=== PATIENT | male | born 1955 | race Caucasian/White ===

== ENCOUNTER 2016-10-05 22:07 | Emergency (ER) | payer MEDICAID ==
[~2016-10-05] VITALS: Ht 175.3 cm; Wt 88.0 kg
[2016-10-05] MEDS ORDERED: K-DUR 2020 MEQ PO (22:16)
[2016-10-05] MEDS ORDERED: FUROSEMIDE 40MG40 M1 PO (22:16)
[2016-10-05] MEDS ORDERED: ACETAMINOPHEN-H1 TA2 PO (22:17)
[2016-10-05] MEDS ORDERED: LOPRESSOR 25MG.25 MG PO (22:17)
[2016-10-05] MEDS ORDERED: DONEPEZIL HCL10 MG PO (22:18)
[2016-10-05] MEDS ORDERED: SODIUM BICARBO650 MG PO (22:18)
[2016-10-05] MEDS ORDERED: SPIRIVA RE2.5 MCG/Ac IH (22:19)
[2016-10-05] MEDS ORDERED: BUSPAR 10MG TAB10 MG PO (22:20)
[2016-10-05] MEDS ORDERED: ASPIRIN ADULT L81 M3 PO (22:20)
[2016-10-05] MEDS ORDERED: SUBOXONE 8 MG-21 FIL SL (22:21)
[2016-10-05] MEDS ORDERED: SIMVASTATIN40 MG PO (22:22)
--- NOTE | 2016-10-05 22:27 | Emergency Room Report ---
History of Present Illness Time Seen by [id number] Presenting Problem in Triage Pt arrived:Walked Presenting Problem:PT RPTS HE BEGAN HAVING CHEST PAIN LAST NIGHT WHILE HE WAS AT HOME. PT RPTS HE WAS GETTING READY TO GO TO BED WHEN THE PAIN STARTED. PT RPTS HAVING BIPASS SURGERY AT LAST FRIDAY BY DR KEYS. PT RPTS HE'S UNSURE IF THE PAIN IS FROM HIS INCISION. PT RPTS INTERMITTENT MID STERNAL CHEST PAIN, HE STS "IT JUST FEELS LIKE SOMETHING'S SITTING THERE. 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 N Clinical Suspician of Infection? N Mental Status: 1 - Regular (Normal Baseline) Sepsis Risk:Low Sepsis Risk Have you (or family members/close friends) recently traveled outside the [place]? N If Yes, where/when: Have you had exposure to infectious disease within the past month? N TB? Other? Specify: Source patient, RN notes reviewed, family, old records Exam Limitations no limitations Comment pt with recent 8 days ago cabg surg and was released from on friday and last pm and tonight has midsternal along incision line pain - he has no cough or fever and no positional pain and no diaphoesis Cardiac Chest Pain Chest pain indicative of cardiac No Timing/Duration this evening Severity moderate ALLERGIES Coded Allergies: No Known Allergies (10/05/16) Home Medications Reported Medications Furosemide 40 MG PO BID #30 Potassium Chloride (K-Dur) 20 MEQ PO DAILY #60 HYDROCODONE/ACETAMINOPHEN (Hydrocodon-Acetaminophen 5-325) 1 TAB PO Q4HP PRN PAIN #60 Metoprolol Tartrate (Lopressor) 12.5 MG PO BID #30 Sodium Bicarbonate 650 MG PO BID #30 DONEPEZIL HCL (Donepezil HCl) 10 MG PO DAILY #30 Tiotropium Marion (Spiriva Respimat) 2.5 MCG IH PRN PRN COPD #4 Buspirone Hcl (Buspar 10MG) 10 MG PO TID #90 Aspirin (Aspirin EC) 81 MG PO DAILY #30 BUPRENORPHINE HCL/NALOXONE HCL (Suboxone 8 MG-2 MG Sl Film) 2 SL DAILY Simvastatin (Simvastatin 40MG Tab) 40 MG PO DAILY #30 History Medical History General CAD? No Angina: Yes [place]: Yes Hypertension? Yes Hyperlipidemia? Yes CHF? No DVT? No PE? No COPD? Yes Asthma? No Anemia? No GERD? No Gastric ulcers? No GI Bleed? No Hernia? No Thyroid Problems? No Hypothyroidism? No CVA? No Seizures? No Diabetes? No Renal Insuffiency? Yes End Stage Renal Disease? No UTI? No Stones? No BPH? No GB Disease: No Nephritic Syndrome? No Asplenia? No Hepatitis? No Sickle Cell Disease? No Arthritis? No Migraines? No Cataracts? No Glaucoma? No MRSA? No HIV? No TB? No Anxiety? No Depression? No Cancer? No More? No Immunization Hx DT/Tetanus Unknown Surgical Hx Previous Surgery?Y RT NEPHRONECTOMY Coronary Artery Bypass Family History Family Hx Diabetes Yes CAD Yes Hypertension Yes Hyperlipidemia Yes Cancer No TB No Social History Smoking Hx Smoker: Current Every Day Smoker Tobacco: Yes Type Cigarettes Packs/day < 1 Pack Alcohol Alcohol: No Drugs none Review of Systems All Other Systems Reviewed and Negative Constitutional denies fever Eyes denies drainage ENT denies: ear discharge, epistaxis, throat pain. Respiratory denies cough, denies shortness of breath, denies wheezing Cardiovascular see HPI, chest pain, denies palpitations, denies syncope Gastrointestinal denies abdominal pain, denies diarrhea, denies vomiting Genitourinary denies: dysuria, frequency, hesitancy, hematuria. Musculoskeletal denies back pain, denies joint pain, denies joint swelling, denies neck pain Skin denies rash Psychiatric/Neurological denies headache, denies seizure Physical Exam Vital Signs Vital Signs Date Time Temp Pulse Resp B/P Pulse O2 O2 Flow FiO2 Ox Delivery Rate 10/05 2347 97.7 67 18 122/71 96 10/05 2315 97.7 65 18 106/56 94 10/05 2259 97.7 68 18 108/74 95 10/05 2209 97.7 63 18 143/73 95 - WBC >12,000 or <4,000 or 10% bands? 2 or more SIRS Criteria Met? B/P:122/71 MAP:96 Creatinine >2.0? UA output<0.5ml/kg/hr for 2 hrs? Platelet count >100,000? Lactate >2.0mmol/1? INR >1.2 or PTT > than 60 sec? Evidence of Organ Dysfunction? Provider documented clinical suspician of infection? N Sepsis Criteria Count: 0 Sepsis Risk: Low Sepsis Risk General Appearance no apparent distress Eye Exam - bilateral eye PERRL, bilateral eye EOMI Ear, Nose, Throat normal ENT inspection Neck supple Respiratory Status No: respiratory distress. Lung Sounds bilateral: lungs clear. left: decreased breath sounds. 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 No Results/Orders Laboratory Tests 10/06/16 0010: Troponin I 0.18 H 10/05/167: Sodium 135 L, Potassium 4.8, Chloride 105, Carbon Dioxide 27, BUN 29 H, Creatinine 1.8 H, Estimated Creat Clear 55, Estimated GFR (MDRD) 39, Glucose 92 , Calcium 7.8 L, Total Bilirubin 0.3, AST 31, ALT 32, Alkaline Phosphatase 107, Creatine Kinase 42, CK-MB (CK-2) Rel Index 2.6, CK and CKMB Interp 1.1, Troponin I 0.17 H, Total Protein 6.6, Albumin 2.1 L, Globulin 4.5 H, Albumin/Globulin Ratio 0.5 L, WBC 5.9, RBC 3.33 L, Hgb 9.2 L, Hct 29.3 L, MCV 88.1, RDW 15.4, Plt Count 189, MPV 6.5 L, Gran % 62.8, Gran # 3.7, Lymphocytes % 26.2, Monocytes % 5.8, Eosinophils % 4.9, Basophils % 0.2, Lymphocytes # 1.6, Monocytes # 0.3, Eosinophils # 0.3, Basophils # 0.0, PUBS MCHC 31.2 L, MCH 27.5 Current Medication Orders Sig/Jacqueline Start time Last Medication Dose Route Stop Time Status Admin Aspirin 243 MG ONCE ONE 10/05 2300 DC 10/05 PO 10/05 2301 2258 Aspirin 0 .STK-MED ONE 10/06 2255 DC .ROUTE Sodium Chloride 10 ML PRN PRN 10/05 2229 AC IV 10/06 2222 Orders Procedure Date/time Status TROPONIN I 10/06 0001 Complete ELECTROCARDIOGRAM REQUEST 10/06 2223 Active CHEST(2 VIEWS-NOT PORTABLE) 10/06 2223 Active IV SALINE LOCK 10/06 2223 Active CBC WITH AUTO DIFF 10/06 2223 Complete CARDIAC ENZYMES 10/06 2223 Complete CHEM 12 PROFILE 10/06 2223 Complete 12 LEAD EKG-BESSON (INITIAL) 10/05 UNK Active 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 ST/Twave chgs XRAY/CT/US XRAY/CT/US XRAY chest XR interpretation by reviewed by me Xray Results abnormal (see report) Departure Departure Time of Disposition 005 Disposition DC Home or Self Care(routine) Clinical Impression Primary Impression: Chest pain Qualifiers: Chest pain type: unspecified Qualified Code: R07.9 - Chest pain, unspecified Secondary Impressions: Anemia Qualifiers: Anemia type: unspecified type Qualified Code: D64.9 - Anemia, unspecified Elevated troponin Renal insufficiency Condition STABLE Patient Instructions DI for Atypical Chest Pain Additional Instructions taker meds and call your surg dr for follow up and see pcp Discharge Counseling Counseled pt/family regarding diagnosis, test results, follow up needs ED Critical Care Critical Care No at 0058
--- OUTSIDE RECORDS SUMMARY | 2016-10-05 22:31 | External Medical Summary Rpt ---
Author Author [facility] Organization [facility] Address Unknown Phone Unavailable Care Team Providers Care Garland Machine Operator Name Role Phone NO, (REF) PCP Unavailable Encounter [facility] MELIA [id number] Date(s): 04/26/16 - 04/26/16 [facility] [place] [address]- Discharge Disposition: [facility] OP Attending Physician: JESUS ALBERTO PRESTON MD-NEP Admitting Physician: JESUS ALBERTO PRESTON MD-NEP Referring Physician: JESUS ALBERTO PRESTON MD-NEP Reason for Visit END STAGE RENAL DISEASE Vital Signs No data available for this section Problem List Condition Effective Status Health Informant Dates Status COPD Active patient (chronic obstructive pulmonary disease)(Con firmed) Hep C w/o Active patient coma, chronic(Conf irmed) Endocarditis Active patient (Confirmed) Hyperlipidem Active patient ia(Confirmed ) Hypertension Active patient (Confirmed) IV drug Active patient user(Confirm ed) Kidney Active patient failure(Conf irmed) Allergies, Adverse Reactions, Alerts No Known Allergies Medications No data available for this section Results No data available for this section Immunizations No data available for this section Procedures No data available for this section Social History No data available for this section Assessment and Plan Extracted from: Title: CKR1 Removal Author: JULIA MARINO, Date: 04/26/16 Dialysis catheter PA-UNK Pre-OP/Procedure Diagnosis: _ Renal Failure. Indication: Request for catheter removal. Catheter no longer needed Procedure Performed: Dialysis catheter removal Procedural MD: Christopher Wind Turbine Electrical Engineer: Yves Sedation: None Findings: Successful removal of dialysis catheter Complications: None EBL: Minimal Specimen(s) Removed: _None Full report to follow. Hospital Discharge Instructions No data available for this section
--- OUTSIDE RECORDS SUMMARY | 2016-10-05 22:31 | External Medical Summary Rpt ---
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 Hospital Discharge Instructions No data available for this section
--- OUTSIDE RECORDS SUMMARY | 2016-10-05 22:36 | External Medical Summary Rpt ---
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 Operator Name Role Phone [facility], [facility] Unavailable Unavailable [facility], [facility] Unavailable Unavailable [facility], Unavailable Unavailable [facility] Unavailable Unavailable [facility] AL-ABED, AL-ABED Unavailable Unavailable AL-ABED MOH, AL-ABED Unavailable Unavailable MOH RADHA, RADHA Unavailable Unavailable ANEJA, ANEJA Unavailable Unavailable AYACH JUNIOR, AYACH JUNIOR Unavailable Unavailable ARRINGTON CHR, ARRINGTON Unavailable Unavailable CHR WILFRID JULIO, Unavailable Unavailable WILFRID JULIO [facility] Unavailable Unavailable [facility], [facility] SUSANA JAM, SUSANA Unavailable Unavailable JAM BORAL MIGUEL A, BORAL MIGUEL A Unavailable Unavailable [facility] BRANSTETTER, Unavailable Unavailable BRANSTETTER CROWE JIGNESH, CROWE Unavailable Unavailable JIGNESH [place] [facility] Unavailable Unavailable [facility] JIGNESH, Unavailable Unavailable U[facility] JR JIGNESH CAVATASSI LIZETH, Unavailable Unavailable CAVATASSI LIZETH NELA SENIOR PIPING DESIGNER, NELA Unavailable Unavailable SENIOR PIPING DESIGNER [facility], Unavailable Unavailable [facility] CUDA, CUDA Unavailable Unavailable CURE, CURE Unavailable Unavailable SONIDO, SONIDO Unavailable Unavailable EL KHOULI, EL KHOULI Unavailable Unavailable [facility], Unavailable Unavailable [facility] Unavailable Unavailable MEDICAL BALWINDER, [facility] MORIN NAN, MORIN Unavailable Unavailable NAN JHON GARRETT, JHON Unavailable Unavailable GARRETT SHIVAM ANI, Unavailable Unavailable SHIVAM ANI BUCKNER, BUCKNER Unavailable Unavailable BUCKNER LORI, BUCKNER LORI Unavailable Unavailable MALKA MIGUEL A, MALKA MIGUEL A Unavailable Unavailable [facility] DALEY MAR, DALEY MAR Unavailable Unavailable FABIÁN MARTHA, FABIÁN Unavailable Unavailable MARTHA KMSF NURSE Unavailable Unavailable PRACTITIONER GR, KMSF NURSE PRACTITIONER GR KOSTELIC, KOSTELIC Unavailable Unavailable KOTTER, KOTTER Unavailable Unavailable KOTTER DARRIAN, KOTTER Unavailable Unavailable DARRIAN SWETA [facility], [facility] Unavailable [facility] Unavailable Unavailable [facility], [facility] Unavailable Unavailable [facility], [facility] MATEUS JAM, MATEUS JAM Unavailable Unavailable [facility] Un[facility] ROBERT ART, ROBERT Unavailable Unavailable ART MICHAEL-SINGLETON, Unavailable Unavailable [facility]LE[facility] DREW CON, DREW CON Unavailable Unavailable MALEK SHE, MALEK SHE Unavailable Unavailable [facility] Unavailable Unavailable [facility], [facility]ED [facility], M[facility]AM[facility] Unavailable Unavailable [facility] Unavailable Unavailable [facility], [facility] Unavailable [facility]available AMBULANCE SE, [facility] Unavailable Unavailable AMBULANCE SE, [facility] CHAPARRITA PRADIP, CHAPARRITA PRADIP Unavailable Unavailable GOLDSMITH TAO Unavailable Unavailable CHE, GOLDSMITH TAO CHE FARLEY GRA, FARLEY GRA Unavailable Unavailable PORNOY ZEFERINO, PORNOY Unavailable Unavailable [facility], [facility] REKHRAJ, REKHRAJ Unavailable Unavailable MELGAR, MELGAR Unavailable Unavailable MELGAR SYBIL, Unavailable Unavailable MELGAR SYBIL [facility] Unavailable [facility]available [facility], [facility] Unavailable Unavailable [facility], [facility] COSME NIURKA, COSME NIURKA Unavailable Unavailable [facility] Unavailable Unavailable [facility] Unavailable Unavailable [facility], GUARDADO Unavailable Unavailable [facility] ALANA IAN, ALANA Unavailable Unavailable IAN SAE ZECHARIAH, SAE Unavailable Unavailable ZECHARIAH MOSHE, MOSHE Unavailable Unavailable TRUE NORMA, TRUE NORMA Unavailable Unavailable LISA OPAL, LISA Unavailable Unavailable OP[facility] Un[facility] Unavailable Unavailable ASSIST, [facility] Un[facility] BILL RAC, VAN Unavailable Unavailable DYKE RAC RUCHI MAHSA, RUCHI Unavailable Unavailable MAHSA ALEXANDRE, ALEXANDRE Unavailable Unavailable ALEJANDRA MARION, ALEJANDRA MARION Unavailable Unavailable LENA IV ALL, Unavailable Unavailable LENA IV ALL YANETH GLE, YANETH Unavailable Unavailable GLE ZAGUROVSKAYA, Unavailable Unavailable JUDITH WONG MAR, Unavailable Unavailable ZAAMINAHKAARTURO MAR Purpose Continuity of Care Document - 11-28-2011 through 2016 Problems Code Diagnosis DOS Provider Status E785 HYPERLIPIDE 09-02-2016 [facility] LAURENT JAD UNSPECIFIED HOLDINGS N400 BENIGN 09-02-2016 LAB PIP[facility] PROSTATIC JAD HYPERPLASIA HOLDINGS WO LW URIN TRACT SX I129 HYPERTENSIV 06-26-2016 [facility] E CKD [facility]ALTHCARE W/STAGE 1-4 HOSPITALS CKD OR UNS CKD I2510 [facility]D [facility] 06-26-2016 CORONARY HEALTHCARE ARTERY W/O HOSPITALS ANGINA PECTORIS N189 CHRONIC 06-26-2016 [facility] UNSPECIFIED R9430 ABNORMAL 06-26-2016 [place] [facility] RES[facility] SERV FUNCTION [facility] EMERGENCY DEPARTMENT STUDY UNS I10 ESSENTIAL 06-20-2016 [facility] HYPERTENSIO HEALTH CTR N R739 HYPERGLYCEM 06-20-2016 [facility] IA FAMILY UNSPECIFIED HEALTH CTR Z760 ENCOUNTER 06-20-2016 [facility] FOR ISSUE FAMILY OF REPEAT HEALTH CTR PRESCRIPTIO N B182 CHRONIC 06-14-2016 [facility] HEPATITIS C PSC I38 ENDOCARDITI 06-14-2016 [facility] S [facility]VE [facility] UNSPECIFIED PSC N183 CHRONIC 06-14-2016 [facility] DISEASE PSC STAGE 3 MODERATE R441 VISUAL 05-31-2016 [facility] J90 PLEURAL 05-13-2016 [facility] EFFUSION FAMILY NOT HEALTH CTR ELSEWHERE CLASSIFIED R05 COUGH 05-13-2016 [facility] R0600 DYSPNEA 05-13-2016 [facility] UNSPECIFIED INC R062 WHEEZING 05-13-2016 [facility] INC [id number] PAIN IN 05-06-2016 [facility] LEFT HIP INC R079 CHEST PAIN 05-06-2016 [facility] UNSPECIFIED INC N170 ACUTE RENAL 05-03-2016 [facility] WITH [facility] TUBULAR NECROSIS R7881 BACTEREMIA 05-03-2016 [facility] Z452 ENCOUNTER 04-26-2016 [facility] MGMT VASCULAR ACCESS DEVICE J9811 ATELECTASIS 04-17-2016 [facility] R918 OTHER 04-17-2016 [facility] [place] NONSPECIFIC [facility] ABNORMAL FINDING OF LUNG FIELD R9431 ABNORMAL 04-17-2016 [facility] N66429 PAIN IN 04-16-2016 [facility] UNSPECIFIED [facility]BULANCE HIP D631 ANEMIA IN 04-15-2016 [facility] DISEASE E8779 OTHER FLUID 04-15-2016 [facility] OVERLOAD SERV [facility] N179 ACUTE 04-15-2016 [facility] FAILURE [facility] UNSPECIFIED N250 RENAL 04-15-2016 [facility] OSTEODYSTRO SERV PHY FOUNDATION R319 HEMATURIA 04-15-2016 [facility] UNSPECIFIED SERV FOUNDATION R809 PROTEINURIA 04-15-2016 [facility] UNSPECIFIED FOUNDATION 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 [facility] I510 CARDIAC 04-13-2016 [facility] SEPTAL [facility] DEFECT [facility] ACQUIRED H87593 OTHER 04-12-2016 [facility] E8339 OTHER 04-11-2016 [facility] DISORDERS SERV OF FOUNDATION PHOSPHORUS METABOLISM J9601 ACUTE 04-11-2016 [facility] RESPIRATORY SERV FAILURE FOUNDATION WITH HYPOXIA E872 ACIDOSIS 04-10-2016 [facility] N186 END STAGE 04-10-2016 [facility] RE[facility] DISEASE FOUND[facility] Z4901 ENCOUNTER 04-10-2016 [facility] FITTING&ADJ SERV UST FOUNDATION EXTRACORP DIALYSIS CATH J811 CHRONIC 04-06-2016 [facility] PULMONARY SERV EDEMA FOUNDATION B9561 METHICILLIN 04-05-2016 [facility] N[facility]SE PRACTITIONE SUSCEPTIBLE R GR STAPH INFEC DX CLASS ELS I509 HEART 04-05-2016 [facility] FAILURE SERV UNSPECIFIED FOUNDATION I5189 OTHER 04-05-2016 [facility] ILL-DEFINED SERV HEART FOUNDATION DISEASES J80 ACUTE 04-05-2016 [facility] N[facility]SE RESPIRATORY PRACTITIONE DISTRESS R GR SYNDROME Z049 ENCOUNTER 04-05-2016 [facility] EXAMINATION SERV &OBSERVATIO FOUNDATION N FOR UNS REASON Z9989 DEPENDENCE 04-05-2016 [facility] NURSE ON OTHER PRACTITIONE ENABLING R GR MACHINES & DEVICES R000 TACHYCARDIA 04-04-2016 [facility] UNSPECIFIED FOUNDATION R0602 SHORTNESS 04-04-2016 [facility] OF BREATH SERV FOUNDATION R748 ABNORMAL 04-03-2016 [facility] LEVELS OF SERV OTHER SERUM FOUNDATION ENZYMES R7989 OTHER SPEC 04-03-2016 [facility] ABNORMAL SERV FINDINGS FOUNDATION BLOOD CHEMISTRY I8503DR UNS 04-02-2016 [facility] INITIAL ENC CLOS FRACTURE U269EFN FX UNS PART 04-02-2016 [facility] SPN & PELV INIT ENC BRITTNEE 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 UNSPECIFIED J449 CHRONIC 04-01-2016 [facility] OBSTRUCTIVE SERV PULMONARY FOUNDATION DISEASE UNS B36557 PAIN IN 04-01-2016 [facility] LEFT LEG SERV FOUND[facility] J9690 RESP FAIL 03-30-2016 [facility] UNS UNS SERV WHETHER FOUNDATION W/HYPOXIA/H YPERCAPNIA J984 OTHER 03-30-2016 [facility] DISORDERS SERV OF LUNG FOUNDATION Z9911 DEPENDENCE 03-30-2016 [facility] ON SERV RESPIRATOR FOUNDATION VENTILATOR STATUS R579 SHOCK 03-28-2016 [facility] UNSPECIFIED SERV FOUNDATION Z4682 ENCOUNTER 03-27-2016 [facility] FITTING & SERV ADJUST FOUNDATION NON-VASCULA R CATHETER A419 SEPSIS 03-26-2016 [facility] UNSPECIFIED SERV ORGANISM FOUNDATION A3357LC MX FX PELV 03-26-2016 [facility] W/O DISRUPT SERV PELV RING FOUNDATION INITIAL CLOS FX [id number] UNSPECIFIED 03-26-2016 [facility] FALL SERV INITIAL FOUNDATION ENCOUNTER I330 ACUTE AND 03-25-2016 [facility] SUBACUTE SERV INFECTIVE FOUNDATION ENDOCARDITI S I348 OTHER 03-25-2016 [facility] NONRHEUMATI SERV C MITRAL FOUNDATION VALVE DISORDERS I517 CARDIOMEGAL 03-25-2016 [facility] Y SERV FOUNDATION 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 R188 OTHER 03-25-2016 [facility] ASCITES SERV FOUNDATION R4182 ALTERED 03-25-2016 [facility] MENTAL SERV STATUS FOUNDATION UNSPECIFIED O5209BW UNS 03-25-2016 [facility] FRACTURE SERV STERNUM FOUNDATION INITIAL ENC CLOS FRACTURE R1368KR FRACTURE 03-25-2016 [facility] MANUBRIUM SERV INITIAL ENC FOUNDATION FOR CLOS FRACTURE E61585M CONTUSION 03-25-2016 [facility] OF OTHER SERV INTRA-ABD FOUNDATION ORGANS INITIAL ENC J189 PNEUMONIA 03-24-2016 [facility] UNSPECIFIED SERV ORGANISM FOUNDATION A4101 SEPSIS D/T 03-22-2016 [facility] SUSCEPTIBLE STAPH G9341 METABOLIC 03-22-2016 [facility]IT[facility] 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 I4581 LONG QT 03-22-2016 [facility] SYNDROME SERV FOUNDATION J159 UNSPECIFIED 03-22-2016 [facility] PNEUMONIA HOSPITALS J441 CHRONIC 03-22-2016 [facility]STRUCTIVE [facility] PULMONARY HOSPITALS DZ W/EXACERBAT ION R0902 HYPOXEMIA 03-22-2016 [facility] D5556RS MULTIPLE FX 03-22-2016 [facility] SIDE INIT ASSOCIAT ENC CLOS FRACTURE F7810VV OTHER FX OF 03-22-2016 [place] [facility] INITIAL ASSOCIAT ENCOUNTER CLOSED FX [id number] FRACTURE 03-22-2016 [place] [facility] RIM LT ASSOCIAT PUBIS INIT ENC CLOS FX V05580Q OTHER SPEC 03-22-2016 [place] [facility] INITIAL ASSOCIAT CLOS FRACTURE G8911 ACUTE PAIN 03-18-2016 [facility] DUE TO PHYSICIANS TRAUMA ASSIST V82245T STRESS 03-18-2016 [facility] FRACTURE SERV PELVIS FOUNDATION INITIAL ENC FOR FRACTURE R339 RETENTION 03-18-2016 [facility] PHYSICIANS UNSPECIFIED ASSIST G47691X UNSPECIFIED 03-18-2016 [facility] FRACTURE SERV LT PUBIS FOUNDATION INITIAL CLOS FX N81446Y MX FX PELV 03-18-2016 [facility] UNSTBL DISRUPT PELV RING INIT BRITTNEE FX P183I9J CONCUSSION 03-16-2016 [facility] W/LOC UNS HOSPITAL DURATION INITIAL ENCOUNTER B03636Y UNS 03-16-2016 [facility] FRACTURE LT HOSPITAL ACETABULUM INIT ENC CLOSED FX H19537Q MX FX 03-16-2016 [facility] PELVIS STBL SERV DISRUPT FOUNDATION PELV RING INIT BRITTNEE FX V4344IC FRACTURE 03-16-2016 [facility] OTH PARTS SERV PELVIS INIT FOUNDATION ENC CLOS FRACTURE J3946PD OTHER FALL 03-16-2016 [facility] FROM ONE SERV LEVEL FOUNDATION ANOTHER INITIAL ENCNTR I498 OTHER 03-15-2016 [facility] SPECIFIED SERV CARDIAC FOUNDATION ARRHYTHMIAS K74732 PAIN IN 03-15-2016 [facility] LEFT WRIST SERV FOUNDATION M545 LOW BACK 03-15-2016 [facility] [place] R1900 INTRA-ABD & 03-15-2016 [facility] PELVIC SERV SWELLING FOUNDATION MASS & LUMP UNS SITE R222 LOCALIZED 03-15-2016 [facility] SWELLING SERV MASS AND FOUNDATION LUMP TRUNK M186T3X UNS 03-15-2016 [facility] INTRACRAN [place] INJURY LOC 30 MIN/LESS INIT ENC D7028QC UNSPECIFIED 03-15-2016 [facility] INJURY OF SERV HEAD FOUNDATION INITIAL ENCOUNTER M652NXY UNSPECIFIED 03-15-2016 [facility] INJURY OF SERV THORAX FOUNDATION INITIAL ENCOUNTER O223FRJ CONTUSION 03-15-2016 [facility] LOWER BACK SERV & PELVIS FOUNDATION INITIAL ENCOUNTER T07 UNSPECIFIED 03-15-2016 [facility] INJURIES AMBULANCE SE W07TRTE FALL FROM 03-15-2016 [facility] INITIAL AMBULANCE ENCOUNTER SE M41LQAA OTHER SPEC 03-15-2016 [place] [facility] EVENTS 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 4011 ESSENTIAL 01-05-2015 [facility] HYPERTENSIO PRIMARY N, BENIGN CARE CENTER 4580 ORTHOSTATIC 01-05-2015 [facility] PRIMARY HYPOTENSION CARE CENTER 57750 OTHER 07-05-2014 [facility] DYSPNEA AND INC RESPIRATORY ABNORMALITI ES 7862 COUGH 07-05-2014 [facility] 45799 OSTEOARTHRO 03-07-2014 [facility] UNSPEC [facility]THOP[facility]IC WHETHER S SPORT GEN/LOC UNSPEC SITE 7242 LUMBAGO 03-07-2014 [facility] S SPORT 7244 THORACIC/NELSON 03-07-2014 [facility] MBOSACRAL [facility]THOPAEDIC NEURITIS/RA S SPORT DICULITIS UNSPEC 7812 ABNORMALITY 03-07-2014 [facility] GAIT [facility]THOPAEDIC S SPORT 4439 UNSPECIFIED 03-03-2014 [place] PERIPHERAL TRACE VASCULAR FAMILY DISEASE HEALTH V5883 ENCOUNTER 03-03-2014 [place] FOR TRACE THERAPEUTIC FAMILY DRUG HEALTH MONITORING 12500 ATHEROSLERO 02-22-2014 [facility] ART INC - EXTREM W/INTERMIT CLAUDICAT 4019 UNSPECIFIED 02-03-2014 [facility] ESSENTIAL HOSPITAL HYPERTENSIO N 7804 DIZZINESS 02-03-2014 [facility] GIDDINESS 00093 SHORTNESS 02-03-2014 [facility] OF BREATH HOSPITAL 49101 CHEST PAIN 02-03-2014 [facility] UNSPECIFIED HOSPITAL 96495 CHRONIC 01-21-2014 [place] 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 HEALTH 5569 UNSPECIFIED 12-31-2013 [place] ULCERATIVE TRACE COLITIS FAMILY HEALTH 5589 OTH&UNSPEC 12-31-2013 [facility] NONINFECTIO HOSPITAL US GASTROENTER ITIS&COLITI S V7651 SPECIAL 12-31-2013 [facility] SCREENING HOSPITAL FOR MALIGNANT NEOPLASMS COLON 2724 OTHER AND 12-27-2013 [place] UNSPECIFIED TRACE FAMILY HYPERLIPIDE HEALTH LAURENT 7231 CERVICALGIA 12-24-2013 [facility] MEDICAL BALWINDER Allergies, Adverse Reactions, Alerts Clinical Alert Notifications Alert Member has >/= 3 hosp admit & >/= 1 ED visit in 365 days Medications Na ND Rx Da Fi Fi Am Da Di Ph RX Ph St me C No te ll ll ou ys ag ar # ys at rm s nt no ma ic us Or Da si cy ia de te s n re d CL 60 04 05 30 30 00 KR Ac OP 50 -1 -1 .0 00 OG ti ID 50 9- 2- 00 06 ER ve OG 25 20 20 60 RE 30 17 17 84 PH L 3 61 AR 75 MA CY MG #4 TA 20 BL ET CA 68 04 05 60 30 00 KR Ac RV 38 -1 -0 .0 00 OG ti ED 20 5- 5- 00 06 ER ve IL 09 20 20 58 OL 50 17 17 59 PH 5 32 AR 25 MA CY MG #4 TA 20 BL ET HY 16 04 05 30 [address] 72 -0 -0 .0 00 OG ti OC 90 8- 5- 00 06 ER ve HL 18 20 20 58 OR 31 17 17 59 PH OT 7 31 AR HI MA [place] CY ID E #4 25 20 MG TA B SI 68 04 05 30 30 00 KR Ac MV 18 -0 -0 .0 00 OG ti 00 8- 5- 00 06 ER ve TA 46 20 20 59 TI 40 17 17 96 PH N 3 60 AR 40 MA CY MG #4 TA 20 BL ET SO 64 04 05 30 15 00 KR Ac DI 98 -0 -0 .0 00 OG ti UM 00 9- 5- 00 06 ER ve 18 20 20 58 BI 21 17 17 59 PH CA 0 36 AR RB MA CY 65 0 #4 MG 20 TA BL ET NA 69 04 05 60 30 00 KR Ac SD 09 -1 -0 .0 00 OG ti OX 70 0- 5- 00 06 ER ve EN 85 20 20 60 40 17 17 63 PH 37 7 39 AR 5 MA MG CY TA #4 BL 20 ET DO 43 04 05 30 30 00 KR Ac NE 54 -1 -0 .0 00 OG ti PE 70 0- 5- 00 06 ER ve ZI 27 20 20 60 L 61 17 17 63 PH HC 1 41 AR L MA 10 CY MG #4 20 TA BL ET DO 60 04 05 30 30 00 KR Ac XA 50 -1 -0 .0 00 OG ti ZO 50 0- 5- 00 06 ER ve SI 09 20 20 60 N 60 17 17 63 PH ME 0 43 AR SY MA LA CY TE 8 #4 20 MG TA B DO 60 03 04 30 30 00 KR Ac XA 50 -1 -1 .0 00 OG ti ZO 50 9- 4- 00 06 ER ve SI 09 20 20 59 N 50 17 17 96 PH ME 0 61 AR SY MA LA CY TE 4 #4 20 MG TA B SO 00 03 04 30 15 00 KR Ac DI 22 -2 -1 .0 00 OG ti UM 31 5- 4- 00 06 ER ve 72 20 20 58 BI 10 17 17 59 PH CA 1 36 AR RB MA CY 65 0 #4 MG 20 TA BL ET BU 50 03 03 30 15 00 HO Ac SD 38 -0 -3 .0 00 ME ti EN 30 6- - 04 TO ve OR 28 20 20 02 WN PH 79 17 17 17 IN 3 58 PH -N AR AL MA OX CY ON OF 8- 2 CY MG NT HI SL AN A CA 68 03 03 60 30 00 KR Ac RV 38 -0 -3 .0 00 OG ti ED 20 6- 1- 00 06 ER ve IL 09 20 20 58 OL 50 17 17 59 PH 5 32 AR 25 MA CY MG #4 TA 20 BL ET HY 16 03 03 30 [address] 72 -0 -3 .0 00 OG ti OC 90 6- 06 ER ve HL 18 20 20 58 OR 31 17 17 59 PH OT 7 31 AR HI MA AZ CY ID E #4 25 20 MG TA B SP 00 03 03 4. 30 00 KR Ac IR 59 -0 -3 00 00 OG ti IV 70 9- 1- 0 06 ER ve A 10 20 20 59 RE 06 17 17 96 PH SP 1 56 AR IM MA AT CY 2. #4 5 20 MC G IN H DO 43 03 03 30 30 00 KR Ac NE 54 -0 -3 .0 00 OG ti PE 70 9- 1- 00 06 ER ve ZI 27 20 20 59 L 50 17 17 96 PH HC 3 57 AR L MA 5 CY MG #4 TA 20 BL ET PA 68 03 03 30 30 00 KR Ac RO 38 -0 -3 .0 00 OG ti XE 20 9- - 00 06 ER ve TI 00 20 20 59 NE 10 17 17 96 PH 5 58 AR HC MA L CY 40 #4 MG 20 TA BL ET SI 68 03 03 30 30 00 KR Ac MV 18 -0 -3 .0 00 OG ti 00 9- 1- 00 06 ER ve TA 46 20 20 59 TI 40 17 17 96 PH N 3 60 AR 40 MA CY MG #4 TA 20 BL ET AM 68 03 03 30 30 00 KR Ac LO 18 -0 -3 .0 00 OG ti DI 00 9- 1- 00 06 ER ve PI 75 20 20 59 NE 10 17 17 96 PH 3 62 AR BE MA SY CY LA TE #4 5 20 MG TA B DO 60 02 03 30 30 00 KR Ac XA 50 -2 -1 .0 00 OG ti ZO 50 1- 7- 00 06 ER ve SI 09 20 20 59 N 50 17 17 02 PH ME 0 55 AR SY MA LA CY TE 4 #4 20 MG TA B BU 50 02 03 26 13 00 HO Ac SD 38 -2 -1 .0 00 ME ti EN 30 1- 7- 00 04 TO ve OR 28 20 20 02 WN PH 79 17 17 15 IN 3 67 PH -N AR AL MA OX CY ON OF 8- 2 CY MG NT HI SL AN A SO 64 02 03 60 30 00 KR Ac DI 98 -1 -1 .0 00 OG ti UM 00 8- 0- 00 06 ER ve 18 20 20 58 BI 21 17 17 93 PH CA 0 20 AR RB MA CY 65 0 #4 MG 20 TA BL ET HY 16 02 03 30 [address] 72 -0 -1 .0 00 OG ti OC 90 6- 0- 00 06 ER ve HL 18 20 20 58 OR 31 17 17 59 PH OT 7 31 AR HI MA AZ CY ID E #4 25 20 MG TA B CA 68 02 03 60 30 00 KR Ac RV 38 -0 -1 .0 00 OG ti ED 20 6- 0- 00 06 ER ve IL 09 20 20 58 OL 50 17 17 59 PH 5 32 AR 25 MA CY MG #4 TA 20 BL ET AM 69 02 03 30 30 00 KR Ac LO 09 -0 -1 .0 00 OG ti DI 70 9- 0- 00 06 ER ve PI 12 20 20 57 NE 81 17 17 56 PH 5 58 AR BE MA SY CY LA TE #4 20 10 MG TA B PA 68 02 02 30 30 00 KR Ac RO 38 -0 -2 .0 00 OG ti XE 20 4- 4- 00 06 ER ve TI 00 20 20 52 NE 10 17 17 39 PH 5 21 AR HC MA L CY 40 #4 MG 20 TA BL ET BU 00 02 02 90 30 00 KR Ac SP 37 -0 -2 .0 00 OG ti IR 81 4- 4- 00 06 ER ve ON 15 20 20 57 E 00 17 17 56 PH HC 5 60 AR L MA 10 CY MG #4 20 TA BL ET DO 60 01 02 30 30 00 KR Ac XA 50 -2 -1 .0 00 OG ti ZO 50 6- 7- 00 06 ER ve SI 09 20 20 59 N 50 17 17 02 PH ME 0 55 AR SY MA LA CY TE 4 #4 20 MG TA B AM 68 01 02 30 30 00 KR Ac LO 18 -2 -1 .0 00 OG ti DI 00 6- 7- 00 06 ER ve PI 75 20 20 59 NE 10 17 17 02 PH 3 54 AR BE MA SY CY LA TE #4 5 20 MG TA B SO 64 01 02 60 30 00 KR Ac DI 98 -2 -1 .0 00 OG ti UM 00 3- 7- 00 06 ER ve 18 20 20 58 BI 21 17 17 93 PH CA 0 20 AR RB MA CY 65 0 #4 MG 20 TA BL ET PO 62 01 02 52 30 00 HO Ac LY 17 -2 -1 7. 00 ME ti ET 50 4- 7- 00 06 TO ve HY 44 20 20 0 05 WN LE 23 17 17 87 NE 1 80 PH AR GL MA YC CY OL OF 33 50 CY NT PO HI WD AN A AM 69 01 02 30 30 00 KR Ac LO 09 -1 -0 .0 00 OG ti DI 70 2- 3- 00 06 ER ve PI 12 20 20 57 NE 81 17 17 56 PH 5 58 AR BE MA SY CY LA TE #4 20 10 MG TA B HY 16 01 01 30 [address] 72 -0 -2 .0 00 OG ti OC 90 6- 7- 00 06 ER ve HL 18 20 20 58 OR 31 17 17 59 PH OT 7 31 AR HI MA [place] CY ID E #4 25 20 MG TA B CA 68 01 01 60 30 00 KR Ac RV 38 -0 -2 .0 00 OG ti ED 20 6- 7- 00 06 ER ve IL 09 20 20 58 OL 50 17 17 59 PH 5 32 AR 25 MA CY MG #4 TA 20 BL ET DO 60 01 01 15 30 00 KR Ac XA 50 -0 -2 .0 00 OG ti ZO 50 6- 7- 00 06 ER ve SI 09 20 20 58 N 60 17 17 59 PH ME 0 34 AR SY MA LA CY TE 8 #4 20 MG TA B SO 64 01 01 30 15 00 KR Ac DI 98 -0 -2 .0 00 OG ti UM 00 6- 7- 00 06 ER ve 18 20 20 58 BI 21 17 17 59 PH CA 0 36 AR RB MA CY 65 0 #4 MG 20 TA BL ET PA 68 01 01 30 30 00 KR Ac RO 38 -0 -2 .0 00 OG ti XE 20 6- 7- 00 06 ER ve TI 09 20 20 58 NE 81 17 17 59 PH 0 42 AR HC MA L CY 20 #4 MG 20 TA BL ET BU 00 12 01 90 30 00 KR Ac SP 37 -3 -2 .0 00 OG ti IR 81 0- 0- 00 06 ER ve ON 15 20 20 57 E 00 16 17 56 PH HC 5 60 AR L MA 10 CY MG #4 20 TA BL ET PA 68 12 01 30 30 00 KR Ac RO 38 -3 -2 .0 00 OG ti XE 20 0- 0- 00 06 ER ve TI 00 20 20 52 NE 10 16 17 39 PH 5 21 AR HC MA L CY 40 #4 MG 20 TA BL ET PO 62 12 01 52 30 00 HO Ac LY 17 -1 -0 7. 00 ME ti ET 50 4- 9- 00 06 TO ve HY 44 20 20 0 05 WN LE 23 16 17 87 NE 1 80 PH AR GL MA YC CY OL OF 33 50 CY NT PO HI WD AN A BU 43 12 01 60 30 00 KR Ac SD 59 -1 -0 .0 00 OG ti OP 80 2- 9- 00 06 ER ve IO 53 20 20 58 N 70 16 17 05 PH HC 5 15 AR L MA SR CY 15 #4 0 20 MG TA BL ET AM 69 12 01 30 30 00 KR Ac LO 09 -1 -0 .0 00 OG ti DI 70 7- 9- 00 06 ER ve PI 12 20 20 57 NE 81 16 17 98 PH 5 42 AR BE MA SY CY LA TE #4 20 10 MG TA B Results Labs Lab Lab Date Result Refere Interp Status Commen Order Detail nces retati t Range on MDRO Wnd (09-30-2016 16:08) CC XXX NOTAP complet VC-aCnc 017 NOT ed 16:08 APPLICA BLE L Bacteri [id number] complet a XXX 017 06 No ed Anaerob 16:08 growth e+Aerob (qualif e Cult ier value) SCT NG2 NO GROWTH DAY 2. L Phosphate SerPl-mCnc (09-29-2016 02:02) Phospha TCON 2.5-4.5 complet te 017 Multipl ed SerPl-m 02:02 e SCM Cnc orders. Tests consoli dated. L mg/dL Phosphate SerPl-mCnc (09-29-2016 02:02) Phospha 09-29-2 2.1 2.5-4.5 complet te 017 mg/dL ed SerPl-m 02:02 Cnc Ca-I SerPl ISE-sCnc (09-28-2016 04:33) Ca-I 4.6 4.6-5.1 complet SerPl 017 mg/dL ed ISE-sCn 04:33 c Magnesium SerPl-mCnc (09-28-2016 04:33) Magnesi 09-28-2 2.3 1.9-2.4 complet um 017 mg/dL ed SerPl-m 04:33 Cnc Phosphate SerPl-mCnc (09-28-2016 04:33) Phospha 09-28-2 1.8 2.5-4.5 complet te 017 mg/dL ed SerPl-m 04:33 Cnc Phosphate SerPl-mCnc (09-27-2016 03:40) Phospha 09-27-2 3.5 2.5-4.5 complet te 017 mg/dL ed SerPl-m 03:40 Cnc Potassium SerPl-sCnc (09-26-2016 21:41) Potassi 4.4 3.7-4.8 complet um 017 mmol/L ed SerPl-s 21:41 Cnc Magnesium SerPl-mCnc (09-26-2016 13:42) Magnesi 09-26-2 4.1 1.9-2.4 complet um 017 mg/dL ed SerPl-m 13:42 Cnc Hgb A1c MFr Bld (09-26-2016 12:18) Hgb A1c 6.0 % 4.7-6.0 complet MFr 017 ed Bld 12:18 MDRO Wnd (09-26-2016 12:18) CC XXX NOTAP complet VC-aCnc 017 NOT ed 12:18 APPLICA BLE L Bacteri [id number] complet a XXX 017 06 No ed Anaerob 12:18 growth e+Aerob (qualif e Cult ier value) SCT NG1 NO GROWTH DAY 1. L Potassium SerPl-sCnc (05-04-2017 12:01) Potassi 09-26- 4.6 3.7-4.8 complet um 017 mmol/L ed SerPl-s 12:01 Cnc Procedures Procedure DOS Code Location Performer Comment BLOOD 72992 LAB PIPER LAB PIPER COUNT 7 JAD JAD COMPLETE HOLDINGS HOLDINGS AUTO&[place] [address] LAB PIPER LAB PIPER FREE 7 JAD JAD [place] [address] LAB PIPER LAB PIPER THYROID 7 JAD JAD STIMULATI HOLDINGS HOLDINGS NG HORMONE TSH COMPREHEN 02261 LAB PIPER LAB PIPER SIVE 7 JAD JAD [place] [address] LAB PIPER LAB PIPER PROSTATE 7 JAD JAD SPECIFIC HOLDINGS HOLDINGS ANTIGEN TOTAL LIPID 58828 LAB PIPER LAB PIPER PANEL 7 JAD JAD HOLDINGS HOLDINGS CV STRS 69014 [place] [facility] TST 7 MEDICAL XERS&/OR SERV RX CONT FOUNDATIO ECG W/O N I&R TECHNETIU A9500 [place] M TC-99M 7 HEALTHCAR HEALTHCAR SESTAMIBI E E DX PER [facility] STUDY DOSE CV STRS 75998 [place] TST 7 HEALTHCAR HEALTHCAR XERS&/OR E E RX CONT [facility] ECG TRCG ONLY MYOCARDIA 86149 [place] L SPECT 7 HEALTHCAR HEALTHCAR MULTIPLE E E STUDIES [facility] HGB 65275 [place] [facility] GLYCOSYLA 7 FAMILY [facility] CLEARED FDA HOME USE BLOOD 24264 SHANICE [facility] COUNT 7 RENAL RENAL HEMOGLOBI CARE PSC CARE PSC N BLOOD 78083 [facility] AL-ABED COUNT 7 RENAL HEMATOCRI CARE PSC T BASIC 95783 [facility] METABOLIC 7 RENAL RENAL PANEL CARE PSC CARE PSC CALCIUM IONIZED BASIC 15954 [place] METABOLIC 7 HEALTHCAR HEALTHCAR PANEL E E CALCIUM [facility] TOTAL RADIOLOGI 14220 RADIOLOGY CURE C EXAM 6 INC CHEST 2 VIEWS FRONTAL&L ATERAL RADEX HIP 39075 RADIOLOGY CUDA 6 INC UNILATERA L WITH PELVIS 2-3 VIEWS RADEX 14346 RADIOLOGY RADHA RIBS UNI 6 INC W/POSTERO ANT CH MINIMUM 3 VIEWS [facility] 32556 [facility] DISCHAR[facility] 6 RENAL DAY CARE PSC MANAGEMEN T > 30 MIN SBSQ 45515 [facility] 6 RENAL MOH CARE/DAY CARE PSC 35 MINUTES SBSQ 66183 [facility] 6 RENAL MOH CARE/DAY CARE PSC 35 MINUTES SBSQ 15793 [facility] 6 RENAL MOH CARE/DAY CARE PSC 25 MINUTES SBSQ 39389 [place] [address] RENAL MOH CARE/DAY CARE PSC 35 MINUTES SBSQ 83430 [facility] 6 RENAL CARE/DAY CARE PSC 35 MINUTES SBSQ 60210 [facility] 6 RENAL CARE/DAY CARE PSC 35 MINUTES RADIOLOGI 26755 [facility] [place] KOST[place] C 6 RADIOLOGY EXAMINATI ON CHEST SINGLE VIEW FRONTAL RMVL [facility] 62758 [facility] [place] CVC W/O 6 RADIOLOGY LD IV ALL SUBQ 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 SBSQ 61709 [place] [address] RENAL MOH CARE/DAY CARE PSC 35 MINUTES SBSQ 63406 [place] [address] RENAL MOH CARE/DAY CARE PSC 35 MINUTES SBSQ 98535 [place] [address] RENAL MOH CARE/DAY CARE PSC 35 MINUTES SBSQ 14209 [place] [address] RENAL MOH CARE/DAY CARE PSC 35 MINUTES SBSQ 61202 [place] [address] RENAL MOH CARE/DAY CARE PSC 35 MINUTES SBSQ 90332 [place] [address] RENAL MOH CARE/DAY CARE PSC 35 MINUTES SBSQ 18590 [place] [address] RENAL MOH CARE/DAY CARE PSC 35 MINUTES SBSQ 09570 [place] [address] RENAL MOH CARE/DAY CARE PSC 35 MINUTES SBSQ 62469 [place] [address] RENAL MOH CARE/DAY CARE PSC 35 MINUTES SBSQ 38259 [facility] 6 RENAL MOH CARE/DAY CARE PSC 35 MINUTES RADIOLOGI 19828 [facility] 6 RADIOLOGY LD IV ALL EXAMINATI ON CHEST SINGLE VIEW FRONTAL ECG 93059 [facility] ROUTINE 6 [place] [facility]INIC W/LEAST PSC 12 LDS I&R ONLY INITIAL 63520 [facility] 6 RENAL CARE/DAY CARE PSC 70 MINUTES SBSQ 29403 [place] [address] MEDICAL CARE/DAY SERV 25 FOUNDATIO MINUTES N GROUND A0425 [facility] 6 METRO METRO PER AMBULANCE AMBULANCE STATUTE MILE SBSQ 46964 [place] [address] MEDICAL CARE/DAY SERV 25 FOUNDATIO MINUTES N RADIOLOGI 21041 [facility] 6 MEDICAL EXAMINATI SERV ON CHEST FOUNDATIO SINGLE N VIEW FRONTAL ECG [address] [facility] ROUTINE 6 MEDICAL [facility] ECG SERV W/LEAST FOUNDATIO 12 LDS N I&R ONLY SBSQ 29971 [place] [address] MEDICAL SYBIL CARE/DAY SERV 25 FOUNDATIO MINUTES N SBSQ 25673 [place] [address] MEDICAL SYBIL CARE/DAY SERV 25 FOUNDATIO MINUTES N BLOOD 58054 UN[facility]ERS[facility] FABIÁN SMEAR 6 Y OF MARTHA [facility] [place] L INTERP HOSPI PHYS W/WRIT REPORT SBSQ 66399 [place] [address] MEDICAL SYBIL CARE/DAY SERV 25 FOUNDATIO MINUTES N SBS[address] 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 N AGE 6 YR/> SBSQ 17389 [facility] 6 MEDICAL CARE/DAY SERV 25 FOUNDATIO MINUTES N SBSQ 65230 [place] [facility] 6 MEDICAL CARE/DAY SERV 35 FOUNDATIO MINUTES N SBSQ 60397 [place] [facility] 6 MEDICAL AMR CARE/DAY SERV 35 FOUNDATIO MINUTES N SBSQ 69079 [place] [facility] 6 MEDICAL AMR CARE/DAY SERV 35 FOUNDATIO MINUTES N RADIOLOGI 04824 [place] [facility] 6 MEDICAL AYA MAR EXAMINATI SERV ON CHEST FOUNDATIO SINGLE N VIEW FRONTAL RADIOLOGI 78683 [place] [facility] C 6 MEDICAL EXAMINATI SERV ON CHEST FOUNDATIO SINGLE N VIEW FRONTAL ECHO 47467 [place] [facility] 6 MEDICAL DARRIAN C R-T 2D SERV W/WO FOUNDATIO M-MODE N REC F-UP/LMTD CRITICAL 67614 [facility] CARE 6 NURSE RAC ILL/INJUR PRACTITIO ED NER GR PATIENT INIT 30-74 MIN SBSQ 11275 [place] [facility] 6 MEDICAL CARE/DAY SERV 35 FOUNDATIO MINUTES N ECG 76668 [place] [facility] ROUTINE 6 MEDICAL NAN ECG SERV W/LEAST FOUNDATIO 12 LDS N I&R ONLY ECG 25061 [place] [facility] [employer] ROUTINE 6 MEDICAL ECG SERV W/LEAST FOUNDATIO 12 LDS N I&R ONLY RADIOLOGI 05626 [place] [facility] C 6 MEDICAL JIGNESH EXAMINATI SERV ON CHEST FOUNDATIO SINGLE N VIEW FRONTAL RADIOLOGI 12744 [place] [facility] 6 MEDICAL AYA MAR EXAMINATI SERV ON CHEST FOUNDATIO SINGLE N VIEW FRONTAL ECG 00677 [place] SW[facility] CHI ROUTINE 6 MEDICAL ECG SERV W/LEAST FOUNDATIO 12 LDS N I&R ONLY INSJ 09616 [place] [facility] TUNNELED 6 MEDICAL GARRETT CVC W/O SERV SUBQ FOUNDATIO 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 N AGE 6 YR/> FLUORO 77127 [place] [facility] CENTRAL 6 MEDICAL GARRETT VENOUS SERV ACCESS FOUNDATIO DEV N PLACEMENT US VASC 69691 [place] [facility] ACCESS 6 MEDICAL GARRETT SITS VSL SERV PATENCY FOUNDATIO NDL ENTRY N INSERTION [id number] [facility] HEALTHCAR HEALTHCAR DEVC E E [facility] VENA CAVA PERQ PROTEIN 40973 [facility] MIGUEL A ELECTROPH 6 Y OF ORETIC [place] FRACTJ&QU HOSPI ANTJ SERUM PROTEIN 86057 [facility] MIGUEL A ELECTROP 6 Y OF FXJ&JASON [place] [facility]US [facility] CONCENTRA TI RADIOLOGI 98406 [place] GOLDSMITH C EXAM 6 MEDICAL TAO PELVIS SERV CHE COMPL FOUNDATIO MINIMUM 3 N VIEWS INITIAL 22579 [place] ALEJANDRA MARION INPATIENT 6 MEDICAL CONSULT SERV NEW/ESTAB FOUNDATIO PT 55 N MIN SBSQ 47362 [facility] 6 MEDICAL ANI CARE/DAY [place] [address] [place] MATEUS JAM RETROPERI 6 MEDICAL TONEAL SERV REAL TIME FOUNDATIO W/IMAGE N COMPLETE SBSQ 69294 [place] [address] MEDICAL ANI CARE/DAY SERV 25 FOUNDATIO MINUTES N CRITICAL 50727 [place] [facility] 6 MEDICAL ANI ILL/INJUR SERV ED FOUNDATIO PATIENT N INIT 30-74 MIN RADIOLOGI 42480 [place] DREW CON C 6 MEDICAL EXAMINATI SERV ON CHEST FOUNDATIO SINGLE N VIEW FRONTAL RADIOLOGI 96023 [place] CROWE C 6 MEDICAL JIGNESH EXAMINATI SERV ON CHEST FOUNDATIO SINGLE N VIEW FRONTAL RADIOLOGI 03700 [place] SAE C 6 MEDICAL ZECHARIAH EXAMINATI SERV ON CHEST FOUNDATIO SINGLE N VIEW FRONTAL INSJ 25845 [place] SONIDO NON-TUNNE 6 MEDICAL LED SERV CENTRAL FOUNDATIO VENOUS N CATH AGE 6 YR/> INSERTION [id number] [facility] 6 HEALTHCAR HEALTHCAR DEVC E E [facility] VENA CAVA PERQ RADEX 10771 [place] ROBERT ABDOMEN 1 6 MEDICAL ART SERV ANTEROPOS FOUNDATIO TERIOR N VIEW RADIOLOGI 81415 [place] DREW CON C 6 MEDICAL EXAMINATI SERV ON CHEST FOUNDATIO SINGLE N VIEW FRONTAL ECG 42246 [place] M[facility] ROUTINE 6 MEDICAL NAN ECG SERV W/LEAST FOUNDATIO 12 LDS N I&R ONLY INSJ 60955 [place] SON[place] NON-TUNNE 6 MEDICAL LED SERV CENTRAL FOUNDATIO VENOUS N CATH AGE 5 [place]R/> [place] [address] [place] GEO ABDOMEN & 6 MEDICAL SCO PELVIS SERV W/CONTRAS FOUNDATIO T N MATERIAL SBSQ 72517 [place] [facility] 6 MEDICAL LIZETH CARE/DAY SERV 25 FOUNDATIO MINUTES N RESPIRATO [id number] [place] RY 6 HEALTHCAR HEALTHCAR VENTILATI E E ON 24-96 [facility] CONSECUTI VE HOURS INSERTION [id number] [facility] 6 HEALTHCAR HEALTHCAR DEVC E E SUPERIOR [facility] VENA CAVA PERQ INSERT [id number] [facility] ENDOTRACH 6 HEALTHCAR HEALTHCAR L AIRWAY E E TRACHEA [facility] NEHEMIAS/ART OPENING RADIOLOGI 39105 [place] [facility] C 6 MEDICAL AYA EXAMINATI SERV ON CHEST FOUNDATIO SINGLE N VIEW FRONTAL INITIAL 55246 [place] [facility] 6 MEDICAL LIZETH CONSULT SERV NEW/ESTAB FOUNDATIO PT [address] THORAX [address]179 [place] FOMBELL 6 MEDICAL JIGNESH W/CONTRAS SERV T FOUNDATIO MATERIAL N ECHO 94362 [place] [facility] R-T 6 MEDICAL DARRIAN 2D SERV W/WOM-MOD FOUNDATIO E COMPL N SPEC&COLR D RADIOLOGI 63741 [place] CHAP[facility] C 6 MEDICAL EXAMINATI SERV ON CHEST FOUNDATIO SINGLE N VIEW FRONTAL RADIOLOGI 36255 [place] MARVIN CHAVEZ C 6 MEDICAL EXAMINATI SERV ON CHEST FOUNDATIO SINGLE N VIEW FRONTAL RADIOLOGI 76340 [facility] C 6 EXAMINATI RADIOLOGY RADIOLOGY ON CHEST ASSOCIAT ASSOCIAT SINGLE VIEW FRONTAL ECG 34278 [place] WSETA CHI ROUTINE 6 MEDICAL ECG SERV W/LEAST FOUNDATIO 12 LDS N I&R ONLY CT THORAX 73077 [facility] W/O 6 CONTRAST RADIOLOGY [place] [address] [facility] ABDOMEN & 6 PELVIS RADIOLOGY RADIOLOGY W/O ASSOCIAT ASSOCIAT CONTRAST MATERIAL GROUND A0425 [facility] MILEAGE 6 CO AMB CO AMB PER SERVICE SERVICE STATUTE MILE COMMODE E0163 [facility] CHAIR 6 MOBILE OR STATIONAR Y W/FIXED [facility] 43348 [facility] DALEY MAR DISCHARGE 6 NURSE DAY PRACTITIO MANAGEMEN NER GR T 30 MIN/< SBSQ 77002 [facility] 6 MEDICAL CARE/DAY SERV 15 FOUNDATIO MINUTES N WALKER E0143 [facility] FOLDING 6 WHEELED ADJUSTABL E/FIXED HEIGHT SBSQ 20282 [facility] 6 DE ER CARE/DAY PHYSICIAN 25 S ASSIST MINUTES SBSQ 53953 [facility] 6 DE CHR CARE/DAY PHYSICIAN 25 S ASSIST MINUTES SBSQ 27153 [facility] 6 MEDICAL OPAL CARE/DAY SERV 35 FOUNDATIO MINUTES N RADIOLOGI 82433 [place] WILFRID C EXAM 6 MEDICAL JULIO PELVIS SERV COMPL FOUNDATIO MINIMUM 3 N VIEWS RADIOLOGI 38918 [place] WILFR[facility] C 6 MEDICAL JULIO EXAMINATI SERV ON PELVIS FOUNDATIO 1/2 N VIEWS RADEX HIP 29051 [place] RODRIGUE LIRA 6 MEDICAL MAHSA UNILATERA SERV L WITH FOUNDATIO PELVIS N 2-[address] LUMBAR 07139 [place] TRUE [place] SPINE 6 MEDICAL W/O SERV CONTRAST FOUNDATIO MATERIAL N AMB A0427 [facility] SERVICE 6 [facility] ALS AMBULANCE AMBULANCE EMERGENCY SE SE TRANSPORT LEVEL 1 RADEX 00070 [place] RODRIG[facility] LIRA WRIST 6 MEDICAL MAHSA COMPLETE SERV MINIMUM 3 FOUNDATIO VIEWS N AMB A0431 AIR [facility] SERVICE 6 METHODS METHODS CONVNTION [facility] AIR SRVC TRAN[place] [address] [place] [address] [place] TRUE [place] THORACIC 6 MEDICAL SPINE W/O SERV CONTRAST FOUNDATIO MATERIAL N CT PELVIS 04446 [place] TRUE NORMA W/O 6 MEDICAL CONTRAST SERV MATERIAL FOUNDATIO N ECG 83773 [place] MALKA MIGUEL A ROUTINE 6 MEDICAL ECG SERV W/LEAST FOUNDATIO 12 LDS N I&[place] [address] [place] RUCHI HEAD/BRAI 6 MEDICAL MAHSA N W/[place] [address] [place] [facility] [place] ANGIOGRAP 6 MEDICAL HY CHEST SERV W/CONTRAS FOUNDATIO T/[place] [address] [place] [facility] [place] CERVICAL 6 MEDICAL SPINE W/O SERV CONTRAST FOUNDATIO MATERIAL N GROUND A0425 MARILYNN SUBRAMANIAN [address] PER AM[place]UL[place] [address] [place] ABDOMEN & 6 MEDICAL PELVIS SERV W/CONTRAS FOUNDATIO T N MATERIAL RADIOLOGI 16506 RADIOLOGY FARLEY GRA C EXAM 5 INC CHEST 2 VIEWS FRONTAL&L ATERAL MOB: WALK G8979 [facility] MOV ARND 4 JR JIGNESH [facility]CN CLINE ORTHOPAED GOAL REP ICS SPORT INTRVL&D/ C MOB:WALK G8978 [facility] MOV ARND 4 JR JIGNESH FCN CLINE ORTHOPAED TX OUTSET ICS SPORT REP INTRVL SELF-CARE 67590 [facility] /HOME 4 JR JIGNESH MGMT ORTHOPAED TRAINING ICS SPORT EACH 15 MINUTES PHYSICAL 37347 [facility] THERAPY 4 JR JIGNESH EVALUATIO ORTHOPAED N ICS SPORT THERAPEUT 47037 [facility]TE[facility] U[facility] IC PX 1/> 4 JR JIGNESH AREAS ORTHOPAED EACH 15 ICS SPORT MIN EXERCISES NON-INVAS 88118 [facility] NATY 4 INC - INC - PHYSIOLOG IC STUDY EXTREMITY 3 LEVLS CV STRS 88552 [facility] TST 4 TRACE GLE XERS&/OR FAMILY RX CONT HEALTH ECG I&R ONLY MYOCARDIA 32115 [place] [facility] L SPECT 4 CO CO [facility] HOSPITAL STUDIES CV STRS 29894 [place] YANETH TST 4 TRACE GLE XERS&/OR FAMILY RX CONT HEALTH ECG W/O I&R CV STRS 78368 [place] [facility] TST 4 CO CO XERS&/OR HOSPITAL HOSPITAL RX CONT ECG TRCG ONLY TECHNETIU A9500 [place] Gillis TC-99M 4 CO CO [facility] DX PER STUDY DOSE DUP-SCAN 60784 [facility] S[facility] ARTL JADE 4 INC - INC - ABDL/PEL/ SCROT&/RP R ORGN COM MRI BRAIN 27344 [place] MASONK BRAIN 4 REGIONAL GLE STEM W/O MEDICAL W/CONTRAS BALWINDER T MATERIAL DUPLEX 68204 [facility] SCAN 4 INC - INC - EXTRACRAN IAL ART COMPL BI STUDY ECHO 55691 [place] YANETH TTHRC R-T 4 TRACE GLE 2D FAMILY W/WOM-MOD HEALTH E COMPL SPEC&COLR D RINGERS J7120 [place] STR[facility] LACTATE 4 CO CO INFUSION [facility] UP TO 1000 CC ANES 67724 [place] [facility] LOWER 4 CO CO INTESTINE [facility] ENDOSCOPY DISTAL DUODENUM INJECTION J2250 [place] STR[facility] 4 CO CO MIDAZOLAM [facility] HCL PER 1 [place] [address] [place] SUSANA SURG 4 [place] INC JAM PATHOLOGY GROSS&JIGNESH ROSCOPIC EXAM COLONOSCO 83081 [place] [facility] PY 4 CO CO W/BIOPSY [facility] SINGLE/MU LTIPLE LIPOPROTE 27327 [facility] IN DIR 4 TRACE GLE MARVA HIGH FAMILY DENSITY HEALTH CHOLESTER OL MRI 79353 [place] SPINAL 4 REGIONAL GLE CANAL MEDICAL CERVICAL BALWINDER W/O CONTRAST MATRL 3D 75489 [place] RENDERING 4 REGIONAL GLE W/INTERP MEDICAL & BALWINDER POSTPROCE SS SUPERVISI ON LIPOPROTE 21823 [facility] IN DIR 4 TRACE GLE MARVA HIGH FAMILY DENSITY HEALTH CHOLESTER OL SPMTRY 57983 [place] [facility] W/VC 4 TRACE GLE EXPIRATOR FAMILY Y JADE HEALTH W/WO MXML VOL VNTJ Encounters Encounter Start End Date Code Location Performer Type Date HOSPITAL - 7 7 HEALTHCAR OUTPATIEN E T HOSPITALS OFFICE 69730 [place] [facility] 7 7 FAMILY T VISIT HEALTH 15 CTR MINUTES HOSPITAL - 7 7 HEALTHCAR OUTPATIEN E T HOSPITALS OFFICE 75129 [facility] MICHAEL-R OUTPATIEN 7 7 NURSE RHINAMAN T VISIT PRACTITIO 25 NER GR MINUTES OFFICE 49100 [facility] OUTPATIEN 6 6 FAMILY T VISIT HEALTH 15 CTR MINUTES EMERGENCY 65581 NINA PIZARROTT 6 6 MEDICAL DEPARTMEN SERV T VISIT FOUNDATIO HIGH/URGE N NT SEVERITY EMERGENCY 36664 [facility] 6 6 PEDRO ZEFERINO VISIT EMERGENCY HIGH PHYS SEVERITY& THREAT RUST - 6 6 HEALTHCAR [facility] 6 6 Y [facility] EMERGENCY 03458 NINA NAVARROVER 6 6 MEDICAL IAN DEPARTMEN SERV T VISIT FOUNDATIO HIGH/URGE N NT SEVERITY OFFICE 26667 [facility] LORI OUTPATIEN 6 6 FAMILY T VISIT HEALTH 15 CTR MINUTES OFFICE 82600 [facility] OUTPATIEN 6 6 FAMILY T VISIT HEALTH 15 CTR MINUTES OFFICE 03319 [facility] LORI OUTPATIEN 5 5 PRIMARY T VISIT CARE 15 CENTER MINUTES OFFICE 02395 [place] OLE SHE OUTPATIEN 4 4 TRACE T VISIT FAMILY 25 HEALTH [facility] STRINGER - 4 4 CO [facility] T OFFICE 84041 [place] MALEEvan SHE OUTPATIEN 4 4 TRACE T VISIT FAMILY 15 [facility] STRINGER - 4 4 CO [facility] T OFFICE 62744 [place] YANETH OUTPATIEN 4 4 TRACE GLE T VISIT 5 FAMILY MINUTES [facility]
--- OUTSIDE RECORDS SUMMARY | 2016-10-05 22:36 | External Medical Summary Rpt ---
Author Author , Organization [employer] Address Unknown Phone Unavailable Care Team Providers Care Research And Development Tester Name Role Phone [facility], [facility] Unavailable Unavailable [facility], [facility] Unavailable Unavailable [facility], Unavailable Unavailable [facility] Unavailable Unavailable [facility] AL-ABED, AL-ABED Unavailable [...] BRANSTETTER CROWE JIGNESH, CROWE Unavailable Unavailable JIGNESH [facility] Unavailable Unavailable [facility], [facility] UZIEL JR JIGNESH, Unavailable Unavailable UZIEL JR JIGNESH CAVATASSI LIZETH, Unavailable Unavailable CAVATASSI LIZETH NELA SOLUTIONS DEVELOPER, NELA Unavailable Unavailable SOLUTIONS DEVELOPER [facility], Unavailable Unavailable [facility] CUDA, CUDA Unavailable Unavailable CURE, CURE Unavailable Unavailable SONIDO, SONIDO Unavailable Unavailable EL KHOULI, EL KHOULI Unavailable Unavailable [facility], Unavailable Unavailable [facility] Unavailable Unavailable MEDICAL BALWINDER, [facility] MORIN NAN, MORIN Unavailable Unavailable [...] Unavailable [facility], [facility] PPIER JAD Unavailable Unavailable HOLDINGS, [facility] Unavailable Unavailable HOLDINGS, [facility] MATEUS JAM, MATEUS JAM Unavailable Unavailable [facility] Un[facility] ROBERT ART, ROBERT Unavailable Unavailable ART MICHAEL-SINGLETON, Unavailable Unavailable MICHAEL-SINGLETON DREW CON, DREW CON Unavailable Unavailable MALEK SHE, MALEK SHE Unavailable Unavailable [facility] Unavailable Unavailable [facility]AT, [facility] Unavailable Unavailable [facility] Unavailable Unavailable [facility], [facility] Unavailable Unavailable AMBULANCE SE, [facility] Unavailable Unavailable AMBULANCE SE, [facility] CHAPARRITA PRADIP, CHAPARRITA PRADIP Unavailable Unavailable GOLDSMITH TAO Unavailable Unavailable CHE, GOLDSMITH TAO CHE FARLEY GRA, FARLEY GRA Unavailable Unavailable PORNOY ZEFERINO, PORNOY Unavailable Unavailable [facility], Unavailable [facility] REKHRAJ, REKHRAJ Unavailable Unavailable MELGAR, MELGAR Unavailable Unavailable MELGAR SYBIL, Unavailable Unavailable MELGAR SYBIL [facility] Unavailable Unavailable [facility]ULANCE, [facility] Unavailable Unavailable [facility]ANCE, [facility] COSME NIURKA, COSME NIURKA Unavailable Unavailable [...] Unavailable ASSIST, [facility] [place] [facility], Unavailable Unavailable [facility] Unavailable [place] [facility] BILL RAC, VAN Unavailable Unavailable DYKE [...] HOSPITALS CKD OR UNS CKD I2510 ASHD RUBY 06-26-2016 [facility]ON[facility]CARE ARTERY W/O HOSPITALS ANGINA PECTORIS N189 CHRONIC 06-26-2016 [facility] UNSPECIFIED R9430 ABNORMAL 06-26-2016 [place] [facility] RES[facility] [place] SERV FUNCTION [facility] STUDY UNS I10 ESSENTIAL 06-20-2016 [facility] [...] PSC STAGE 3 MODERATE R441 VISUAL 05-31-2016 [facility] J90 PLEURAL 05-13-2016 [facility] EFFUSION FAMILY NOT HEALTH CTR ELSEWHERE CLASSIFIED R05 COUGH 05-13-2016 [facility] R0600 DYSPNEA 05-13-2016 [facility] UNSPECIFIED INC R062 WHEEZING 05-13-2016 [facility] L21439 PAIN IN 05-06-2016 [facility] LEFT HIP INC [...] LUNG FIELD R9431 ABNORMAL 04-17-2016 [facility] PSC L13279 PAIN IN 04-16-2016 [facility] UNSPECIFIED AMBULANCE HIP D631 ANEMIA IN 04-15-2016 [facility] DISEASE E8779 OTHER FLUID 04-15-2016 [facility] OVERLOAD SERV [facility] N179 ACUTE 04-15-2016 [place] [facility] FAILURE [facility] UNSPECIFIED N250 RENAL 04-15-2016 [facility] OSTEODYSTRO SERV PHY FOUNDATION R319 HEMATURIA 04-15-2016 [facility] UNSPECIFIED SERV FOUNDATION R809 PROTEINURIA 04-15-2016 [facility] SERV UNSPECIFIED FOUNDATION 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 [facility] I510 CARDIAC 04-13-2016 [facility] SEPTAL SERV DEFECT FOUNDATION ACQUIRED W56494 OTHER 04-12-2016 [facility] A HOSPI E8339 OTHER 04-11-2016 [facility] DISORDERS SERV OF FOUNDATION PHOSPHORUS METABOLISM J9601 ACUTE 04-11-2016 [facility] RESPIRATORY SERV FAILURE FOUNDATION WITH HYPOXIA E872 ACIDOSIS 04-10-2016 [facility] SERV [facility] N186 END STAGE 04-10-2016 [facility] RENAL SERV DISEASE FOUNDATION Z4901 ENCOUNTER 04-10-2016 [facility] FITTING&ADJ SERV UST FOUNDATION EXTRACORP DIALYSIS CATH J811 CHRONIC 04-06-2016 [facility] PULMONARY SERV EDEMA FOUNDATION B9561 METHICILLIN 04-05-2016 [facility] [place]SE PRACTITION[place] SUSCEPTIBLE R GR STAPH INFEC DX CLASS ELS I509 HEART 04-05-2016 [facility] FAILURE SERV UNSPECIFIED FOUNDATION I5189 OTHER 04-05-2016 [facility] ILL-DEFINED SERV HEART FOUNDATION DISEASES J80 ACUTE 04-05-2016 [facility] [place]SE RESPIRATORY PRACTITIONE DISTRESS R GR SYNDROME Z049 ENCOUNTER 04-05-2016 [facility] EXAMINATION SERV &OBSERVATIO FOUNDATION N FOR UNS REASON Z9989 DEPENDENCE 04-05-2016 [facility] [place]SE ON OTHER PRACTITIONE ENABLING R GR MACHINES & DEVICES R000 TACHYCARDIA 04-04-2016 [facility] SERV UNSPECIFIED FOUNDATION R0602 SHORTNESS 04-04-2016 [facility]ICAL OF BREATH SERV FOUNDATION R748 ABNORMAL 04-03-2016 [facility] LEVELS OF SERV OTHER SERUM FOUNDATION ENZYMES R7989 OTHER SPEC 04-03-2016 [facility] ABNORMAL SERV FINDINGS FOUNDATION BLOOD CHEMISTRY Y8255FS UNS 04-02-2016 [facility]OSPI INITIAL ENC CLOS FRACTURE Y235LDP FX UNS PART 04-02-2016 [facility] LUMBOS[facility]AL HOSPI SPN & PELV INIT ENC BRITTNEE 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 UNSPECIFIED J449 CHRONIC 04-01-2016 [facility] OBSTRUCTIVE SERV PULMONARY FOUNDATION DISEASE UNS O23583 PAIN IN 04-01-2016 [facility] LEFT LEG SERV FOUNDATION J9690 RESP FAIL 03-30-2016 [facility] UNS UNS SERV WHETHER FOUNDATION W/HYPOXIA/H YPERCAPNIA J984 OTHER 03-30-2016 [facility] DISORDERS SERV OF LUNG FOUNDATION Z9911 DEPENDENCE 03-30-2016 [facility]ICAL ON SERV RESPIRATOR FOUNDATION VENTILATOR STATUS R579 SHOCK 03-28-2016 [facility] UNSPECIFIED SERV FOUNDATION Z4682 ENCOUNTER 03-27-2016 [facility] FITTING & SERV ADJUST FOUNDATION NON-VASCULA R CATHETER A419 SEPSIS 03-26-2016 [facility] UNSPECIFIED SERV ORGANISM FOUNDATION J3458BA MX FX PELV 03-26-2016 [facility] W/O DISRUPT SERV PELV RING FOUNDATION INITIAL CLOS FX Q56VHGK UNSPECIFIED 03-26-2016 [facility] FALL SERV INITIAL FOUNDATION ENCOUNTER I330 ACUTE AND 03-25-2016 [facility] SUBACUTE SERV INFECTIVE FOUNDATION ENDOCARDITI S I348 OTHER 03-25-2016 [facility]ICAL NONRHEUMATI SERV C MITRAL FOUNDATION VALVE DISORDERS I517 CARDIOMEGAL 03-25-2016 [facility] Y SERV FOUNDATION 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 R188 OTHER 03-25-2016 [facility] ASCITES SERV FOUNDATION R4182 ALTERED 03-25-2016 [facility] MEDICAL MENTAL SERV STATUS FOUNDATION UNSPECIFIED X5763BO UNS 03-25-2016 [facility] FRACTURE SERV STERNUM FOUNDATION INITIAL ENC CLOS FRACTURE J4825CS FRACTURE 03-25-2016 [facility] MANUBRIUM SERV INITIAL ENC FOUNDATION FOR CLOS FRACTURE D68733S CONTUSION 03-25-2016 [facility]ICAL OF OTHER SERV INTRA-ABD FOUNDATION ORGANS INITIAL ENC J189 PNEUMONIA 03-24-2016 [facility] UNSPECIFIED SERV ORGANISM FOUNDATION A4101 SEPSIS D/T 03-22-2016 [facility] SUSCEPTIBLE STAPH G9341 METABOLIC 03-22-2016 [facility] 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 I4581 LONG QT 03-22-2016 [facility] SYNDROME SERV FOUNDATION J159 UNSPECIFIED 03-22-2016 [facility] PNEUMONIA HOSPITALS J441 CHRONIC 03-22-2016 [facility] OBSTRUCTIVE [facility] PULMONARY HOSPITALS DZ W/EXACERBAT ION R0902 HYPOXEMIA 03-22-2016 [facility] O0446GR MULTIPLE FX 03-22-2016 [facility] SIDE INIT ASSOCIAT ENC CLOS FRACTURE X3741QA OTHER FX OF 03-22-2016 [facility] INITIAL ASSOCIAT ENCOUNTER CLOSED FX E19322W FRACTURE 03-22-2016 [facility] RIM LT ASSOCIAT PUBIS INIT ENC CLOS FX V05952D OTHER SPEC 03-22-2016 [facility] FX [facility] INITIAL ASSOCIAT CLOS FRACTURE G8911 ACUTE PAIN 03-18-2016 [facility] DUE TO PHYSICIANS TRAUMA ASSIST I39368U STRESS 03-18-2016 [facility] FRACTURE SERV PELVIS FOUNDATION INITIAL ENC FOR FRACTURE R339 RETENTION 03-18-2016 [facility] PHYSICIANS UNSPECIFIED ASSIST G82530S UNSPECIFIED 03-18-2016 [facility] FRACTURE SERV LT PUBIS FOUNDATION INITIAL CLOS FX E19456F MX FX PELV 03-18-2016 [facility] UNSTBL DISRUPT PELV RING INIT BRITTNEE FX G943V9G CONCUSSION 03-16-2016 [facility] W/LOC UNS HOSPITAL DURATION INITIAL ENCOUNTER G90234T UNS 03-16-2016 [facility] FRACTURE LT HOSPITAL ACETABULUM INIT ENC CLOSED FX T74377H MX FX 03-16-2016 [facility] MEDICAL PELVIS STBL SERV DISRUPT FOUNDATION PELV RING INIT BRITTNEE FX T1199CA FRACTURE 03-16-2016 [facility]ICAL OTH PARTS SERV PELVIS INIT FOUNDATION ENC CLOS FRACTURE S1621FD OTHER FALL 03-16-2016 [facility]ICAL FROM ONE SERV LEVEL FOUNDATION ANOTHER INITIAL ENCNTR I498 OTHER 03-15-2016 [facility] SPECIFIED SERV CARDIAC FOUNDATION ARRHYTHMIAS W51067 PAIN IN 03-15-2016 [facility]ICAL LEFT WRIST SERV FOUNDATION M545 LOW BACK 03-15-2016 [facility] PAIN [place] R1900 INTRA-ABD & 03-15-2016 [facility] MEDICAL PELVIC SERV SWELLING FOUNDATION MASS & LUMP UNS SITE R222 LOCALIZED 03-15-2016 [facility] MEDICAL SWELLING SERV MASS AND FOUNDATION LUMP TRUNK T332F4A UNS 03-15-2016 [facility] INTRACRAN [place] INJURY LOC 30 MIN/LESS INIT ENC A2322NX UNSPECIFIED 03-15-2016 [facility] INJURY OF SERV HEAD FOUNDATION INITIAL ENCOUNTER R356KQC UNSPECIFIED 03-15-2016 [facility]ICAL INJURY OF SERV THORAX FOUNDATION INITIAL ENCOUNTER C887FRE CONTUSION 03-15-2016 [facility] MED[facility] LOWER BACK SERV & PELVIS FOUNDATION INITIAL ENCOUNTER T07 UNSPECIFIED 03-15-2016 [facility] INJURIES AMBULANCE SE S70WNPZ FALL FROM 03-15-2016 [facility] INITIAL AMBULANCE ENCOUNTER SE B24BJTE OTHER SPEC 03-15-2016 [place] [facility] EV[facility] D INTENT INIT ENC Z743 NEED FOR 03-15-2016 [facility] CONTINUOUS [place] SUPERVISION 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 4011 ESSENTIAL 01-05-2015 [facility] HYPERTENSIO PRIMARY N, BENIGN CARE CENTER 4580 ORTHOSTATIC 01-05-2015 [facility] PRIMARY HYPOTENSION CARE CENTER 08917 OTHER 07-05-2014 [facility] DYSPNEA AND INC RESPIRATORY ABNORMALITI ES 7862 COUGH 07-05-2014 [facility] INC 52103 OSTEOARTHRO 03-07-2014 [facility] S UNSPEC ORTHOPAEDIC WHETHER S SPORT GEN/LOC UNSPEC SITE 7242 LUMBAGO 03-07-2014 [facility] S SPORT 7244 THORACIC/NELSON 03-07-2014 [facility] MBOSACRAL ORTHOPAEDIC NEURITIS/RA S SPORT DICULITIS UNSPEC 7812 ABNORMALITY 03-07-2014 [facility] OF GAIT ORTHOPAEDIC S SPORT 4439 UNSPECIFIED 03-03-2014 [facility] PERIPHERAL TRACE VASCULAR FAMILY DISEASE HEALTH V5883 ENCOUNTER 03-03-2014 [facility] FOR TRACE THERAPEUTIC FAMILY DRUG HEALTH MONITORING 20549 ATHEROSLERO 02-22-2014 [facility] NATV ART INC - EXTREM W/INTERMIT CLAUDICAT 4019 UNSPECIFIED 02-03-2014 [facility] ESSENTIAL HOSPITAL HYPERTENSIO N 7804 DIZZINESS 02-03-2014 [facility] GIDDINESS 37769 SHORTNESS 02-03-2014 [facility] OF BREATH HOSPITAL 41225 CHEST PAIN 02-03-2014 [facility] UNSPECIFIED HOSPITAL 89016 CHRONIC 01-21-2014 [facility] 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 HEALTH 5569 UNSPECIFIED 12-31-2013 [facility] ULCERATIVE TRACE COLITIS FAMILY HEALTH 5589 OTH&UNSPEC 12-31-2013 [facility] NONINFECTIO HOSPITAL US GASTROENTER ITIS&COLITI S V7651 SPECIAL 12-31-2013 [facility] SCREENING [facility] FOR [facility]NANT NEOPLASMS COLON 2724 OTHER AND 12-27-2013 [facility] UNSPECIFIED TRACE FAMILY HYPERLIPIDE HEALTH LAURENT 7231 CERVICALGIA 12-24-2013 [facility] MEDICAL BALWINDER Allergies, Adverse Reactions, Alerts Clinical [...] 04 05 60 30 00 KR Ac CO 09 -1 -0 .0 00 OG ti [...] 03 03 30 15 00 HO Ac CO 38 -0 -3 .0 00 ME ti [...] 02 03 26 13 00 HO Ac CO 38 -2 -1 .0 00 ME ti [...] 12 01 60 30 00 KR Ac CO 59 -1 -0 .0 00 OG ti [...] NOT ed 16:08 APPLICA BLE L Bacteri 4889280 complet a XXX 017 06 No ed [...] NOT ed 12:18 APPLICA BLE L Bacteri 6855769 complet a XXX 017 06 No ed Anaerob 12:18 growth e+Aerob (qualif e Cult ier value) SCT NG1 NO GROWTH DAY 1. L Potassium SerPl-sCnc (05-04-2017 12:01) Potassi 09-26- 4.6 3.7-4.8 complet um 017 mmol/L ed SerPl-s 12:01 Cnc Procedures Procedure DOS Code Location Performer Comment BLOOD 10100 LAB PIPER LAB PIPER COUNT 7 JAD JAD COMPLETE HOLDINGS HOLDINGS AUTO&[place] [address] LAB PIPER LAB PIPER FREE 7 JAD JAD [place] [address] LAB PIPER LAB PIPER THYROID 7 JAD JAD STIMULATI HOLDINGS HOLDINGS NG HORMONE TSH COMPREHEN 81998 LAB PIPER LAB PIPER SIVE 7 JAD JAD METABOL[place] [address] LAB PIPER LAB PIPER PROSTATE 7 JAD JAD SPECIFIC HOLDINGS HOLDINGS ANTIGEN TOTAL LIPID 24848 LAB PIPER LAB PIPER PANEL 7 JAD JAD HOLDINGS HOLDINGS CV STRS 93235 [place] [facility] T[facility] 7 MEDICAL XERS&/OR SERV RX CONT FOUNDATIO ECG W/O N I&R TECHNETIU A9500 [facility] M TC-99M 7 HEALTHCAR HEALTHCAR SESTAMIBI E E DX PER [facility] STUDY DOSE CV STRS 17131 [facility] TST 7 HEALTHCAR HEALTHCAR XERS&/OR E E RX CONT [facility] ECG TRCG ONLY MYOCARDIA 13669 [facility] L SPECT 7 HEALTHCAR HEALTHCAR MULTIPLE E E STUDIES [facility] HGB 71736 [place] [facility] GLYCOSYLA 7 FAMILY [facility] HEALTH DEVICE CTR CLEARED FDA HOME USE BLOOD 64632 SHANICE [facility] COUNT 7 RENAL RENAL HEMOGLOBI CARE PSC CARE PSC N BLOOD 77990 [facility] AL-ABED COUNT 7 RENAL HEMATOCRI CARE PSC T BASIC 69178 [facility] METABOLIC 7 RENAL RENAL PANEL CARE PSC CARE PSC CALCIUM IONIZED BASIC 20785 [place] METABOLIC 7 HEALTHCAR HEALTHCAR PANEL E E CALCIUM [facility] TOTAL RADIOLOGI 66316 [facility] CURE C EXAM 6 INC CHEST 2 VIEWS FRONTAL&L ATERAL RADEX HIP 81867 [facility] CUDA 6 INC UNILATERA L WITH PELVIS 2-3 VIEWS RADEX 72529 [facility] RADHA RIBS UNI 6 INC W/POSTERO ANT CH MINIMUM 3 VIEWS [facility] 21201 [facility] DISCHARGE 6 RENAL DAY CARE PSC MANAGEMEN T > 30 MIN SBSQ 23519 [facility] 6 RENAL MOH CARE/DAY CARE PSC 35 MINUTES SBSQ 49575 [facility] 6 RENAL MOH CARE/DAY CARE PSC 35 MINUTES SBSQ 12803 [facility] 6 RENAL MOH CARE/DAY CARE PSC 25 MINUTES SBSQ 14426 [place] [address] RENAL MOH CARE/DAY CARE PSC 35 MINUTES SBSQ 89282 [facility] 6 RENAL CARE/DAY CARE PSC 35 MINUTES SBSQ 76013 [facility] 6 RENAL CARE/DAY CARE PSC 35 MINUTES RADIOLOGI 32646 [facility] [place] KOSTELIC C 6 RADIOLOGY EXAMINATI ON CHEST SINGLE VIEW FRONTAL RMVL [facility] 94378 [facility] [place] WESTER[place] CVC W/O 6 RADIOLOGY LD IV ALL SUBQ [place] ATTORNEY SBSQ 26252 [place] [address] RENAL MOH CARE/DAY CARE PSC 35 MINUTES SBSQ 43915 [place] [address] RENAL MOH CARE/DAY CARE PSC 35 MINUTES SBSQ 48849 [place] [address] RENAL MOH CARE/DAY CARE PSC 35 MINUTES SBSQ 64413 [place] [address] RENAL MOH CARE/DAY CARE PSC 35 MINUTES SBSQ 69990 [place] [address] RENAL MOH CARE/DAY CARE PSC 35 MINUTES SBSQ 03370 [place] [address] RENAL MOH CARE/DAY CARE PSC 35 MINUTES SBSQ 48090 [place] [address] RENAL MOH CARE/DAY CARE PSC 35 MINUTES SBSQ 21913 [place] [address] RENAL MOH CARE/DAY CARE PSC 35 MINUTES SBSQ 38006 [place] [address] RENAL MOH CARE/DAY CARE PSC 35 MINUTES SBSQ 65952 [facility] 6 RENAL MOH CARE/DAY CARE PSC 35 MINUTES RADIOLOGI 45096 [facility] RADIOLOGY LD IV ALL EXAMINATI ON CHEST SINGLE VIEW FRONTAL ECG 22413 [facility] ROUTINE 6 ORIENTAL ECG CLINIC W/LEAST PSC 12 LDS I&R ONLY INITIAL 14268 [facility] 6 RENAL CARE/DAY CARE PSC 70 MINUTES SBSQ 23409 [place] [address] MEDICAL CARE/DAY SERV 25 FOUNDATIO MINUTES N GROUND A0425 [facility] 6 [facility] PER AMBULANCE AMBULANCE STATUTE MILE SBSQ 19418 [place] [address] MEDICAL CARE/DAY SERV 25 FOUNDATIO MINUTES N RADIOLOGI 23115 [facility] 6 MEDICAL EXAMINATI SERV ON CHEST FOUNDATIO SINGLE N VIEW FRONTAL ECG 08768 [facility] ROUTINE 6 MEDICAL [facility] ECG SERV W/LEAST FOUNDATIO 12 LDS N I&R ONLY SBSQ 86701 [place] [address] MEDICAL SYBIL CARE/DAY SERV 25 FOUNDATIO MINUTES N SBSQ 13735 [place] [address] MEDICAL SYBIL CARE/DAY SERV 25 FOUNDATIO MINUTES N BLOOD 08433 UNIVERSIT FABIÁN SMEAR 6 Y OF MARTHA PERIPHERA [place] L INTERP HOSPI PHYS W/WRIT REPORT SBSQ 65749 [place] [address] MEDICAL SYBIL CARE/DAY SERV 25 FOUNDATIO MINUTES N SBSQ 82791 [facility] 6 MEDICAL CARE/DAY SERV 25 FOUNDATIO MINUTES N FLUORO 67200 [facility] CENTRAL 6 MEDICAL GARRETT VENOUS SERV ACCESS FOUNDATIO DEV [place] PLACEMENT [place] VASC 25208 [facility] ACCESS 6 MEDICAL G[place] SITS VSL SERV PATENCY FOUNDATIO NDL ENTRY N INSJ 35708 PR [facility] TUNNELED 6 MEDICAL GARRETT CVC W/O SERV SUBQ FOUNDATIO [place] ATTORNEY N AGE 6 YR/> SBSQ 51037 [facility] 6 MEDICAL CARE/DAY SERV 25 FOUNDATIO MINUTES N SBSQ 61334 [place] [facility] 6 MEDICAL CARE/DAY SERV 35 FOUNDATIO MINUTES N SBSQ 53253 [facility] 6 MEDICAL AMR CARE/DAY SERV 35 FOUNDATIO MINUTES N SBSQ 65704 [facility] 6 MEDICAL AMR CARE/DAY SERV 35 FOUNDATIO MINUTES N RADIOLOGI 21234 [facility] C 6 MEDICAL AYA MAR EXAMINATI SERV ON CHEST FOUNDATIO SINGLE N VIEW FRONTAL RADIOLOGI 74579 [place] [facility] C 6 MEDICAL EXAMINATI SERV ON CHEST FOUNDATIO SINGLE N VIEW FRONTAL ECHO 41600 [place] [facility] 6 MEDICAL DARRIAN C R-T 2D SERV W/WO FOUNDATIO M-MODE N REC F-UP/LMTD CRITICAL 27241 [facility] BILL CARE 6 NURSE RAC ILL/INJUR PRACTITIO ED NER GR PATIENT INIT 30-74 MIN SBSQ 91398 [place] [facility] 6 MEDICAL CARE/DAY SERV 35 FOUNDATIO MINUTES N ECG 80155 [place] [facility] ROUTINE 6 MEDICAL NAN ECG SERV W/LEAST FOUNDATIO 12 LDS N I&R ONLY ECG 13118 [place] SWET[facility]y ROUTINE 6 MEDICAL ECG SERV W/LEAST FOUNDATIO 12 LDS N I&R ONLY RADIOLOGI 37231 [place] [facility]OWE C 6 MEDICAL JIGNESH EXAMINATI SERV ON CHEST FOUNDATIO SINGLE N VIEW FRONTAL RADIOLOGI 32727 [facility] 6 MEDICAL AYA MAR EXAMINATI SERV ON CHEST FOUNDATIO SINGLE N VIEW FRONTAL ECG 69863 [place] SWET[facility] CHI ROUTINE 6 MEDICAL ECG SERV W/LEAST FOUNDATIO 12 LDS N I&R ONLY INSJ 27839 [place] [facility] TUNNELED 6 MEDICAL GARRETT CVC W/O SERV SUBQ FOUNDATIO [place] ATTORNEY N AGE 5 YR/> FLUORO 30136 [place] [facility] CENTRAL 6 MEDICAL GARRETT VENOUS SERV ACCESS FOUNDATIO DEV N PLACEMENT US VASC 30684 [place] [facility] ACCESS 6 MEDICAL GARRETT SITS VSL SERV PATENCY FOUNDATIO NDL ENTRY N INSERTION [id number] [facility] INFUSION 6 HEALTHCAR HEALTHCAR DEVC E E [facility] HOS[facility]ITALS VENA CAVA PERQ PROTEIN 57862 [facility] MIGUEL A ELECTROPH 6 Y OF ORETIC [place] FRACTJ&QU HOSPI ANTJ SERUM PROTEIN 94510 [facility] MIGUEL A ELECTROP 6 Y OF FXJ&JASON [place] OTH FLUS HOSPI CONCENTRA TI RADIOLOGI 30816 [place] GOLDSMITH C EXAM 6 MEDICAL TAO PELVIS SERV CHE COMPL FOUNDATIO MINIMUM 3 N VIEWS INITIAL 97279 [place] ALEJANDRA MARION INPATIENT 6 MEDICAL CONSULT SERV NEW/ESTAB FOUNDATIO PT 55 N MIN SBSQ 83073 [facility] 6 MEDICAL ANI CARE/DAY [place] [address] [place] AMTEUS JAM RETROPERI 6 MEDICAL TONEAL SERV REAL TIME FOUNDATIO W/IMAGE N COMPLETE SBSQ 92836 [place] [address] MEDICAL ANI CARE/DAY SERV 25 FOUNDATIO MINUTES N CRITICAL [address] [place] [facility] 6 MEDICAL ANI ILL/INJUR SERV ED FOUNDATIO PATIENT N INIT 30-74 MIN RADIOLOGI 33142 [place] DREW CON C 6 MEDICAL EXAMINATI SERV ON CHEST FOUNDATIO SINGLE N VIEW FRONTAL RADIOLOGI 18372 [place] CROWE C 6 MEDICAL JIGNESH EXAMINATI SERV ON CHEST FOUNDATIO SINGLE N VIEW FRONTAL RADIOLOGI 10128 [place] SAE C 6 MEDICAL ZECHARIAH EXAMINATI SERV ON CHEST FOUNDATIO SINGLE N VIEW FRONTAL INSJ 46459 [place] SONID[place] NON-TUNNE 6 MEDICAL LED SERV CENTRAL FOUNDATIO VENOUS N CATH AGE 6 YR/> INSERTION [id number] [facility] INFUSION 6 HEALTHCAR HEALTHCAR DEVC E E [facility] VENA CAVA PERQ RADEX 31373 [place] ROBERT ABDOMEN 1 6 MEDICAL ART SERV ANTEROPOS FOUNDATIO TERIOR N VIEW RADIOLOGI 70238 [place] DREW CON C 6 MEDICAL EXAMINATI SERV ON CHEST FOUNDATIO SINGLE N VIEW FRONTAL ECG 72623 [place] [facility] ROUTINE 6 MEDICAL NAN ECG SERV W/LEAST FOUNDATIO 12 LDS N I&R ONLY INSJ 73372 [place] S[facility] NON-TUNNE 6 MEDICAL LED SERV CENTRAL FOUNDATIO VENOUS N CATH AGE 5 YR/> [place] [address] [place] GEO ABDOMEN & 6 MEDICAL SCO PELVIS SERV W/CONTRAS FOUNDATIO T N MATERIAL SBSQ 15118 [place] [facility] 6 MEDICAL LIZETH CARE/DAY SERV 25 FOUNDATIO MINUTES N RESPIRATO [id number] [place] RY 6 HEALTHCAR HEALTHCAR VENTILATI E E ON 24-96 [facility] CONSECUTI VE HOURS INSERTION [id number] [facility] INFUSION 6 HEALTHCAR HEALTHCAR DEVC E E SUPERIOR [facility] VENA CAVA PERQ INSERT [id number] [facility] ENDOTRACH 6 HEALTHCAR HEALTHCAR L AIRWAY E E TRACHEA [facility] NEHEMIAS/ART OPENING RADIOLOGI 28039 [place] [facility] C 6 MEDICAL AYA EXAMINATI SERV ON CHEST FOUNDATIO SINGLE N VIEW FRONTAL INITIAL 27415 [place] [facility] 6 MEDICAL LIZETH CONSULT SERV NEW/ESTAB FOUNDATIO PT [address] THORAX [address] [place] ABSARAKA 6 MEDICAL JIGNESH W/CONTRAS SERV T FOUNDATIO MATERIAL N ECHO 06623 [place] [facility] 6 MEDICAL DARRIAN 2D SERV W/WOM-MOD FOUNDATIO E COMPL N SPEC&COLR D RADIOLOGI 34768 [place] CHAPARRITA MOSELEY C 6 MEDICAL EXAMINATI SERV ON CHEST FOUNDATIO SINGLE N VIEW FRONTAL RADIOLOGI 28344 [place] MARVIN CHAVEZ C 6 MEDICAL EXAMINATI SERV ON CHEST FOUNDATIO SINGLE N VIEW FRONTAL RADIOLOGI 20759 [facility] C 6 EXAMINATI RADIOLOGY RADIOLOGY ON CHEST ASSOCIAT ASSOCIAT SINGLE VIEW FRONTAL ECG 43016 [place] SWETA CHI ROUTINE 6 MEDICAL ECG SERV W/LEAST FOUNDATIO 12 LDS N I&R ONLY CT THORAX 73256 [facility] W/O 6 CONTRAST RADIOLOGY [place] [address] [facility] ABDOMEN & 6 PELVIS RADIOLOGY RADIOLOGY W/O ASSOCIAT ASSOCIAT CONTRAST MATERIAL GROUND A0425 [facility] MILEAGE 6 CO AMB CO AMB PER SERVICE SERVICE STATUTE MILE COMMODE E0163 [facility] CHAIR 6 MOBILE OR STATIONAR Y W/FIXED [facility] 35462 [facility] DALEY MAR DISCHARGE 6 NURSE DAY PRACTITIO MANAGEMEN NER GR T 30 MIN/< SBSQ 11160 [facility] 6 MEDICAL CARE/DAY SERV 15 FOUNDATIO MINUTES N WALKER E0143 [facility] FOLDING 6 WHEELED ADJUSTABL E/FIXED HEIGHT SBSQ [address] [facility] 6 PR ER CARE/DAY PHYSICIAN 25 S ASSIST MINUTES SBSQ 55331 [facility] 6 PR CHR CARE/DAY PHYSICIAN 25 S ASSIST MINUTES SBSQ 84715 [facility] 6 MEDICAL OPAL CARE/DAY SERV 35 FOUNDATIO MINUTES N RADIOLOGI 67409 [place] WILFRID C EXAM 6 MEDICAL JULIO PELVIS SERV COMPL FOUNDATIO MINIMUM 3 N VIEWS RADIOLOGI 40447 [place] [facility]ILFR[facility] C 6 MEDICAL JULIO EXAMINATI SERV ON PELVIS FOUNDATIO 1/2 N VIEWS RADEX HIP 52032 [place] RODRIGUE LIRA 6 MEDICAL MAHSA UNILATERA SERV L WITH FOUNDATIO PELVIS N 2-[address] LUMBAR [address]2013 [place] TRUE [place] SPINE 6 MEDICAL W/O SERV CONTRAST FOUNDATIO MATERIAL N AMB A0427 [facility] 6 [facility] ALS AMBULANCE AMBULANCE EMERGENCY SE SE TRANSPORT LEVEL 1 RADEX 98139 [place] RODRIGUE LIRA WRIST 6 MEDICAL MAHSA COMPLETE SERV MINIMUM 3 FOUNDATIO VIEWS N AMB A0431 AIR AIR SERVICE 6 METHODS METHODS CONVNTION [facility] AIR SRVC [place]SP[place] [address] [place] [address] [place] THORACIC 6 MEDICAL SPINE W/O SERV CONTRAST FOUNDATIO MATERIAL N [place] PELVIS [address] [place] TRUE [place] W/O 6 MEDICAL CONTRAST SERV MATERIAL FOUNDATIO N ECG 01234 [place] MIGUEL A ROUTINE 6 MEDICAL ECG SERV W/LEAST FOUNDATIO 12 LDS N I&[place] [address] [place] RUCHI HEAD/BRAI 6 MEDICAL MAHSA N W/[place] [address] [place] ANGIOGRAP 6 MEDICAL HY CHEST SERV W/CONTRAS FOUNDATIO T/[place] [address] [place] CERVICAL 6 MEDICAL SPINE W/O SERV CONTRAST FOUNDATIO MATERIAL N GROUND A0425 MARILYNN SUBRAMANIAN [address] PER AM[place]UL[place] [address] [place] ABDOMEN & 6 MEDICAL PELVIS SERV W/CONTRAS FOUNDATIO T N MATERIAL RADIOLOGI 38664 RADIOLOGY FARLEY GRA C EXAM 5 INC CHEST 2 VIEWS FRONTAL&L ATERAL MOB: WALK G8979 [facility] UZI[facility] MOV ARND 4 JR JIGNESH FCN CLINE ORTHOPAED GOAL REP ICS SPORT INTRVL&D/ C MOB:WALK G8978 [facility] MOV ARND 4 JR JIGNESH FCN CLINE ORTHOPAED TX OUTSET ICS SPORT REP INTRVL SELF-CARE 18902 INTE[facility] UZIEL /HOME 4 JR JIGNESH MGMT ORTHOPAED TRAINING ICS SPORT EACH 15 MINUTES PHYSICAL 90152 [facility] THERAPY 4 JR JIGNESH EVALUATIO ORTHOPAED N ICS SPORT THERAPEUT 73341 INTE[facility] UZI[facility] IC PX 1/> 4 JR JIGNESH AREAS ORTHOPAED EACH 15 ICS SPORT MIN EXERCISES NON-INVAS 59304 [facility] S[facility] NATY 4 INC - INC - PHYSIOLOG IC STUDY EXTREMITY 3 LEVLS CV STRS 41559 [facility] TST 4 TRACE GLE XERS&/OR FAMILY RX CONT HEALTH ECG I&R ONLY MYOCARDIA 97402 [place] STRINGER L SPECT 4 CO CO [facility] STUDIES CV STRS 92274 [facility] YAN[facility] TST 4 TRACE GLE XERS&/OR FAMILY RX CONT HEALTH ECG W/O I&R CV STRS 30269 [place] [facility] TST 4 CO CO XERS&/OR HOSPITAL HOSPITAL RX CONT ECG TRCG ONLY TECHNETIU A9500 [place] Gillis TC-99M 4 CO CO [facility] DX PER STUDY DOSE DUP-SCAN 94129 [facility] S[employer] ARTL JADE 4 INC - INC - ABDL/PEL/ SCROT&/RP R ORGN COM MRI BRAIN 75217 [place] MASONK BRAIN 4 REGIONAL GLE STEM W/O MEDICAL W/CONTRAS BALWINDER T MATERIAL DUPLEX 92814 [facility] S[facility] SCAN 4 INC - INC - EXTRACRAN IAL ART COMPL BI STUDY ECHO 98844 [facility] YANETH TTHRC R-T 4 TRACE GLE 2D FAMILY W/WOM-MOD HEALTH E COMPL SPEC&COLR D RINGERS J7120 [place] STRINGER LACTATE 4 CO CO INFUSION [facility] UP TO 1000 CC ANES 95778 [place] STRINGER LOWER 4 CO CO INTESTINE [facility]IMONIDES [facility] ENDOSCOPY DISTAL DUODENUM INJECTION J2250 [place] STRINGER 4 CO CO MIDAZOLAM MAIMONIDES [facility] HCL PER [address] [place] [address] [place]IP[place] SUSANA SURG 4 [place] INC JAM PATHOLOGY GROSS&JIGNESH ROSCOPIC EXAM COLONOSCO 03709 [place] STRINGER PY 4 CO CO W/BIOPSY MAIMONIDES [facility] SINGLE/MU LTIPLE LIPOPROTE 99134 CHE[facility] YANETH IN DIR 4 TRACE GLE MARVA HIGH FAMILY [place]ENS[facility] [place] [address]8041 [place] [facility] SPINAL 4 REGIONAL GLE CANAL MEDICAL CERVICAL BALWINDER W/O CONTRAST MATRL 3D 61578 [place] YANETH RENDERING 4 REGIONAL GLE W/INTERP MEDICAL & BALWINDER POSTPROCE SS SUPERVISI ON LIPOPROTE 78562 [facility] YANETH IN DIR 4 TRACE GLE MARVA HIGH FAMILY DENSITY HEALTH CHOLESTER OL SPMTRY 13754 [facility] YANETH W/VC 4 TRACE GLE EXPIRATOR FAMILY Y [facility] W/WO MXML VOL VNTJ Encounters Encounter Start End Date Code Location Performer Type Date HOSPITAL - 7 7 [facility] OUTPATI[facility] E T [facility] OFFICE 00548 [facility] 7 7 FAMILY T VISIT HEALTH 15 CTR MINUTES HOSPITAL - 7 7 [facility] OFF[place] 82273 [facility] [facility] [place]PATIEN 7 7 NURSE RHINAMAN T VISIT PRACTITIO 25 NER GR MINUTES OFFICE 41046 [facility] OUTPATIEN 6 6 FAMILY T VISIT HEALTH 15 CTR MINUTES EMERGENCY 95553 NINA PIZARROTT 6 6 MEDICAL DEPARTMEN SERV T VISIT FOUNDATIO HIGH/URGE N NT SEVERITY EMERGENCY 29089 [facility] DEPT 6 6 PEDRO ZEFERINO VISIT EMERGENCY HIGH PHYS SEVERITY& THREAT [facility] - 6 6 [facility] 6 6 Y [facility] EMERGENCY 89665 NINA NAVARROVER 6 6 MEDICAL IAN DEPARTMEN SERV T VISIT FOUNDATIO HIGH/URGE N NT SEVERITY OFFICE 61755 [facility] LORI OUTPATIEN 6 6 FAMILY T VISIT HEALTH 15 CTR MINUTES OFFICE 31376 [facility] OUTPATIEN 6 6 FAMILY T VISIT HEALTH 15 CTR MINUTES OFFICE 73237 [facility]I OUTPATIEN 5 5 PRIMARY T VISIT CARE 15 CENTER MINUTES OFFICE 48284 [facility] SHE OUTPATIEN 4 4 TRACE T VISIT FAMILY 25 [facility] STRINGER - 4 4 CO [facility] T OFFICE 53682 [facility] MALEEvan SHE OUTPATIEN 4 4 TRACE T VISIT FAMILY 15 [facility] STRINGER - 4 4 CO [facility] T OFFICE 43923 [facility] YANETH OUTPATIEN 4 4 TRACE GLE T VISIT 5 FAMILY MINUTES [facility]
--- OUTSIDE RECORDS SUMMARY | 2016-10-05 22:40 | External Medical Summary Rpt ---
Author Author , Organization [employer] Address Unknown Phone Unavailable Care Team Providers Care Regulatory Attorney Name Role Phone [facility], AB[facility]CARE Unavailable Unavailable [facility], [facility] Unavailable Unavailable [facility], Unavailable Unavailable [facility], Unavailable Unavailable [facility] AL-ABED, AL-ABED Unavailable Unavailable AL-ABED MOH, AL-ABED Unavailable Unavailable MOH RADHA, RADHA Unavailable Unavailable ANEJA, ANEJA Unavailable Unavailable AYACH JUNIOR, AYACH JUNIOR Unavailable Unavailable ARRINGTON CHR, ARRINGTON Unavailable Unavailable CHR WILFRID JULIO, Unavailable Unavailable WILFRID JULIO [facility] Unavailable Unavailable [facility], [facility] BORAL MIGUEL A, BORAL MIGUEL A Unavailable Unavailable [facility] Un[facility] BRANSTETTER, Unavailable Unavailable BRANSTETTER CROWE JIGNESH, CROWE Unavailable Unavailable JIGNESH [facility] Unavailable Unavailable [facility] UZIEL JR JIGNESH, Unavailable Unavailable UZIEL JR JIGNESH CAVATASSI LIZETH, Unavailable Unavailable CAVATASSI LIZETH NELA TECHNOLOGY RESOURCE TEACHER, NELA Unavailable Unavailable TECHNOLOGY RESOURCE TEACHER [facility], Unavailable Unavailable [facility] CUDA, CUDA Unavailable Unavailable SONIDO, SONIDO Unavailable Unavailable EL KHOULI, EL KHOULI Unavailable Unavailable [facility], Unavailable Unavailable [facility] Unavailable Unavailable MEDICAL BALWINDER, [facility] MEDICAL BALWINDER MORIN NAN, MORIN [...] FAMILY Unavailable Unavailable [facility] Un[facility] ROBERT ART, ROBERT Unavailable Unavailable ART MICHAEL-SINGLETON, Unavailable Unavailable MICHAEL-SINGLETON DREW CON, DREW CON Unavailable Unavailable MALEK SHE, MALEK SHE Unavailable Unavailable [facility] Unavailable Unavailable [facility]OCIAT, [facility] MOHAMED [facility], MOHAMED Unavailable Unavailable [facility] Unavailable Unavailable [facility] Unavailable Unavailable AMBULANCE SE, [facility] Unavailable Unavailable [facility]BULANCE SE, [facility] CHAPARRITA PRADIP, CHAPARRITA PRADIP Unavailable Unavailable GOLDSMITH TAO Unavailable Unavailable CHE, GOLDSMITH TAO CHE FARLEY GRA, FARLEY GRA Unavailable Unavailable PORNOY ZEFERINO, PORNOY Unavailable Unavailable [facility], Unavailable [facility] REKHRAJ, REKHRAJ Unavailable Unavailable MELGAR, MELGAR Unavailable Unavailable MELGAR SYBIL, Unavailable Unavailable MELGAR SYBIL [facility] Unavailable Unavailable [facility], [facility] COSME NIURKA, COSME NIURKA Unavailable [...] Unavailable LISA OPAL, LISA Unavailable Unavailable [facility] Unavailable [facility] Unavailable Unavailable ASSIST, [facility], Unavailable Unavailable [facility] Unavailable Unavailable [facility] BILL RAC, VAN Unavailable Unavailable DYKE RAC RUCHI MAHSA, RUCHI Unavailable Unavailable MAHSA ALEXANDRE, ALEXANDRE Unavailable Unavailable ALEJANDRA MARION, ALEJANDRA MARION Unavailable Unavailable LENA IV ALL, Unavailable Unavailable LENA IV ALL YANETH GLE, YANETH Unavailable Unavailable GLE ZAGUROVSKAYA, Unavailable Unavailable ZAGUROVSKAYA ZAGUROVSKAYA MAR, Unavailable Unavailable ZAGUROVSKAYA MAR Purpose Continuity of Care Document - 12-23-2013 through 2016 Problems Code Diagnosis DOS Provider Status E785 HYPERLIPIDE 09-02-2016 LAB PIPER LAURENT JAD UNSPECIFIED HOLDINGS N400 BENIGN 09-02-2016 LAB PIPER PROSTATIC JAD HYPERPLASIA HOLDINGS WO LW URIN TRACT SX I129 HYPERTENSIV 06-26-2016 [facility] E CKD HEALTHCARE W/STAGE 1-4 HOSPITALS CKD OR UNS CKD 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 06-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 CORONARY HEALTHCARE ARTERY W/O HOSPITALS ANGINA PECTORIS N189 CHRONIC 06-26-2016 [facility] DISEASE HOSPITALS UNSPECIFIED R9430 ABNORMAL 06-26-2016 [place] [facility] RESULT CV SERV FUNCTION FOUNDATION STUDY UNS I10 ESSENTIAL 06-20-2016 [facility] HYPERTENSIO HEALTH CTR N R739 HYPERGLYCEM 06-20-2016 [facility] [place] [facility] UNSPECIFIED HEALTH CTR Z760 ENCOUNTER 06-20-2016 [facility] FOR ISSUE FAMILY OF REPEAT HEALTH CTR PRESCRIPTIO N B182 CHRONIC 06-14-2016 [facility] HEPATITIS C PSC I38 ENDOCARDITI 06-14-2016 [facility] S [facility]VE [facility] UNSPECIFIED PSC N183 CHRONIC 06-14-2016 [facility] DISEASE PSC STAGE 3 MODERATE R441 VISUAL 05-31-2016 [facility] J90 PLEURAL 05-13-2016 [place] EFFUSION FAMILY NOT HEALTH CTR ELSEWHERE CLASSIFIED R05 COUGH 05-13-2016 [facility] INC R0600 DYSPNEA 05-13-2016 [facility] UNSPECIFIED INC R062 WHEEZING 05-13-2016 [facility] INC L25915 PAIN IN 05-06-2016 [facility] LEFT HIP INC [...] LUNG FIELD R9431 ABNORMAL 04-17-2016 [facility]EL [facility] PSC C21310 PAIN IN 04-16-2016 [facility] UNSPECIFIED AMBULANCE HIP D631 ANEMIA IN 04-15-2016 [facility] CHRONIC SERV KIDNEY [facility]OUNDATION DISEASE E8779 OTHER FLUID 04-15-2016 [facility] OVERLOAD SERV [facility] N179 ACUTE 04-15-2016 [facility] FAILURE FOUNDATION UNSPECIFIED N250 RENAL 04-15-2016 [facility] OSTEODYSTRO SERV PHY FOUNDATION R319 HEMATURIA 04-15-2016 [facility] UNSPECIFIED SERV FOUNDATION R809 PROTEINURIA 04-15-2016 [facility] UNSPECIFIED FOUNDATION 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 I510 CARDIAC 04-13-2016 [facility] SEPTAL [facility] DEFECT [facility]OUND[facility] ACQUIRED R58098 OTHER 04-12-2016 [facility] A HOSPI E8339 OTHER 04-11-2016 [facility] DISORDERS SERV OF FOUNDATION PHOSPHORUS METABOLISM J9601 ACUTE 04-11-2016 [facility] RESPIRATORY SERV FAILURE FOUNDATION WITH HYPOXIA E872 ACIDOSIS 04-10-2016 [facility] N186 END STAGE 04-10-2016 [facility] RENAL [facility] DISEASE FOUND[facility] Z4901 ENCOUNTER 04-10-2016 [facility] FITTING&ADJ SERV UST FOUNDATION EXTRACORP DIALYSIS CATH J811 CHRONIC 04-06-2016 [facility] PULMONARY SERV EDEMA FOUNDATION B9561 METHICILLIN 04-05-2016 [facility] NURSE PRACTITIONE SUSCEPTIBLE R GR STAPH INFEC DX CLASS ELS I509 HEART 04-05-2016 [facility] FAILURE SERV UNSPECIFIED FOUNDATION I5189 OTHER 04-05-2016 [facility] ILL-DEFINED SERV HEART FOUNDATION DISEASES J80 ACUTE 04-05-2016 [facility] NURSE RESPIRATORY PRACTITIONE DISTRESS R GR SYNDROME Z049 ENCOUNTER 04-05-2016 [facility] EXAMINATION SERV &OBSERVATIO [facility] FOR UNS REASON Z9989 DEPENDENCE 04-05-2016 [facility] NURSE ON OTHER PRACTITIONE ENABLING R GR MACHINES & DEVICES R000 TACHYCARDIA 04-04-2016 [facility] SERV UNSPECIFIED FOUNDATION R0602 SHORTNESS 04-04-2016 [facility] OF BREATH SERV FOUNDATION R748 ABNORMAL 04-03-2016 [facility] LEVELS OF SERV OTHER SERUM FOUNDATION ENZYMES R7989 OTHER SPEC 04-03-2016 [facility] ABNORMAL SERV FINDINGS FOUNDATION BLOOD CHEMISTRY O9405QQ UNS 04-02-2016 [facility] INITIAL ENC CLOS FRACTURE M989VFL FX UNS PART 04-02-2016 [facility] SPN & PELV INIT ENC BRITTNEE 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 UNSPECIFIED J449 CHRONIC 04-01-2016 [facility] OBSTRUCTIVE SERV PULMONARY FOUNDATION DISEASE UNS R65049 PAIN IN 04-01-2016 [facility] LEFT LEG SERV FOUND[facility] J9690 RESP FAIL 03-30-2016 [facility] UNS UNS SERV WHETHER FOUNDATION W/HYPOXIA/H YPERCAPNIA J984 OTHER 03-30-2016 [facility] DISORDERS SERV OF LUNG FOUNDATION Z9911 DEPENDENCE 03-30-2016 [facility] ON SERV RESPIRATOR FOUNDATION VENTILATOR STATUS R579 SHOCK 03-28-2016 [facility] UNSPECIFIED SERV FOUNDATION Z4682 ENCOUNTER 03-27-2016 [facility] & SERV ADJUST FOUNDATION NON-VASCULA R CATHETER A419 SEPSIS 03-26-2016 [facility] UNSPECIFIED SERV ORGANISM FOUNDATION A5320ZL MX FX PELV 03-26-2016 [facility] W/O DISRUPT SERV PELV RING FOUNDATION INITIAL CLOS FX [id number] UNSPECIFIED 03-26-2016 [facility] FALL SERV INITIAL FOUNDATION ENCOUNTER I330 ACUTE AND 03-25-2016 [facility] SUBACUTE SERV INFECTIVE FOUNDATION ENDOCARDITI S I348 OTHER 03-25-2016 [facility] NONRHEUMATI SERV C MITRAL FOUNDATION VALVE DISORDERS I517 CARDIOMEGAL 03-25-2016 [facility] Y SERV FOUNDATION 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 R188 OTHER 03-25-2016 [facility] ASCITES SERV FOUNDATION R4182 ALTERED 03-25-2016 [facility] MENTAL SERV STATUS FOUNDATION UNSPECIFIED B5096OR UNS 03-25-2016 [facility] FRACTURE SERV STERNUM FOUNDATION INITIAL ENC CLOS FRACTURE C9579DH FRACTURE 03-25-2016 [facility] MANUBRIUM SERV INITIAL ENC FOUNDATION FOR CLOS FRACTURE E37314C CONTUSION 03-25-2016 [facility] OF OTHER SERV INTRA-ABD FOUNDATION ORGANS INITIAL ENC J189 PNEUMONIA 03-24-2016 [facility] UNSPECIFIED SERV ORGANISM FOUNDATION A4101 SEPSIS D/T 03-22-2016 [facility] SUSCEPTIBLE STAPH G9341 METABOLIC 03-22-2016 [facility] I214 NON-ST 03-22-2016 [facility] INFARCTION I4581 LONG QT 03-22-2016 [facility] SYNDROME SERV FOUNDATION J159 UNSPECIFIED 03-22-2016 [facility] J441 CHRONIC 03-22-2016 [facility] PULMONARY HOSPITALS DZ W/EXACERBAT ION R0902 HYPOXEMIA 03-22-2016 [facility] B1493PB MULTIPLE FX 03-22[facility] SIDE INIT ASSOCIAT ENC CLOS FRACTURE Z9487KT OTHER FX OF 03-22-[facility] INITIAL ASSOCIAT ENCOUNTER CLOSED FX J80432X FRACTURE 03-22-2016 [facility] RIM LT ASSOCIAT PUBIS INIT ENC CLOS FX V06640U OTHER SPEC 03-22-2016 [facility] FX LT PUBIS RADIOLOGY INITIAL ASSOCIAT CLOS FRACTURE G8911 ACUTE PAIN 03-18-2016 [facility] TRAUMA ASSIST H18724J STRESS 03-18-2016 [facility] FRACTURE SERV PELVIS FOUNDATION INITIAL ENC FOR FRACTURE R339 RETENTION 03-18-2016 [facility] PHYSICIANS UNSPECIFIED ASSIST E77465C UNSPECIFIED 03-18-2016 [facility] FRACTURE SERV LT PUBIS FOUNDATION INITIAL CLOS FX B46115T MX FX PELV 03-18-2016 [facility] UNSTBL DISRUPT PELV RING INIT BRITTNEE FX T777S2R CONCUSSION 03-16-2016 [facility] W/LOC UNS HOSPITAL DURATION INITIAL ENCOUNTER O40327K UNS 03-16-2016 [facility] FRACTURE LT HOSPITAL ACETABULUM INIT ENC CLOSED FX V93377N MX FX 03-16-2016 [facility] PELVIS STBL SERV DISRUPT FOUNDATION PELV RING INIT BRITTNEE FX W2485BA FRACTURE 03-16-2016 [facility] OTH PARTS SERV PELVIS INIT FOUNDATION ENC CLOS FRACTURE S9946FK OTHER FALL 03-16-2016 [facility] FROM ONE SERV LEVEL FOUNDATION ANOTHER INITIAL ENCNTR I498 OTHER 03-15-2016 [facility] SPECIFIED SERV CARDIAC FOUNDATION ARRHYTHMIAS L66610 PAIN IN 03-15-2016 [facility] LEFT WRIST SERV FOUNDATION M545 LOW BACK 03-15-2016 [facility] PAIN [place] R1900 INTRA-ABD & 03-15-2016 [facility] PELVIC SERV SWELLING FOUNDATION MASS & LUMP UNS SITE R222 LOCALIZED 03-15-2016 [facility] SWELLING SERV MASS AND FOUNDATION LUMP TRUNK X134I5N UNS 03-15-2016 [facility] INTRACRAN [place] INJURY LOC 30 MIN/LESS INIT ENC H5032OS UNSPECIFIED 03-15-2016 [facility] INJURY OF SERV HEAD FOUNDATION INITIAL ENCOUNTER M935YWY UNSPECIFIED 03-15-2016 [facility] INJURY OF SERV THORAX FOUNDATION INITIAL ENCOUNTER C585VOJ CONTUSION 03-15-2016 [facility] LOWER BACK SERV & PELVIS FOUNDATION INITIAL ENCOUNTER T07 UNSPECIFIED 03-15-2016 [facility] INJURIES AMBULANCE SE P46MGFW FALL FROM 03-15-2016 [facility] INITIAL AMBULANCE ENCOUNTER SE J48QSFG OTHER SPEC 03-15-2016 [place] [facility] EVENTS SERV UNDETERMINE FOUNDATION D INTENT INIT ENC Z743 NEED FOR 03-15-2016 [facility] CONTINUOUS [place] SUPERVISION 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 4011 ESSENTIAL 01-05-2015 [facility] HYPERTENSIO PRIMARY N, BENIGN CARE CENTER 4580 ORTHOSTATIC 01-05-2015 [facility] PRIMARY HYPOTENSION CARE CENTER 08625 OTHER 07-05-2014 [facility] DYSPNEA AND INC RESPIRATORY ABNORMALITI ES 7862 COUGH 07-05-2014 [facility] INC 98417 OSTEOARTHRO 03-07-2014 [facility] S UNSPEC ORTHOPAEDIC WHETHER S SPORT GEN/LOC UNSPEC SITE 7242 LUMBAGO 03-07-2014 [facility] S SPORT 7244 THORACIC/NELSON 03-07-2014 [facility] MBOSACRAL ORTHOPAEDIC NEURITIS/RA S SPORT DICULITIS UNSPEC 7812 ABNORMALITY 03-07-2014 [facility] OF GAIT ORTHOPAEDIC S SPORT 4439 UNSPECIFIED 03-03-2014 [place] PERIPHERAL [facility]ACE VASCULAR FAMILY DISEASE HEALTH V5883 ENCOUNTER 03-03-2014 [place] FOR TRACE THERAPEUTIC FAMILY DRUG HEALTH MONITORING 10287 ATHEROSLERO 02-22-2014 [facility] INC - EXTREM W/INTERMIT CLAUDICAT 4019 UNSPECIFIED 02-03-2014 [facility] ESSENTIAL HOSPITAL HYPERTENSIO N 7804 DIZZINESS 02-03-2014 [facility] AND [facility]OSPITAL GIDDINESS 59176 SHORTNESS 02-03-2014 [facility] OF BREATH HOSPITAL 89366 CHEST PAIN 02-03-2014 [facility] UNSPECIFIED HOSPITAL 35034 CHRONIC 01-21-2014 [place] 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 HEALTH 5569 UNSPECIFIED 12-31-2013 [place] ULCERATIVE TRACE COLITIS FAMILY HEALTH 5589 OTH&UNSPEC 12-31-2013 [facility] NONINFECTIO HOSPITAL US GASTROENTER ITIS&COLITI S V7651 SPECIAL 12-31-2013 [facility] SCREENING [facility]OSPITAL FOR MALIGNANT NEOPLASMS COLON 2724 OTHER AND 12-27-2013 [place] UNSPECIFIED TRACE FAMILY HYPERLIPIDE HEALTH LAURENT 7231 CERVICALGIA 12-24-2013 [facility] BALWINDER Medications Na ND Rx Da Fi Fi [...] 04 05 60 30 00 KR Ac NH 09 -1 -0 .0 00 OG ti OX 70 0- 5- 00 06 ER ve EN 85 20 20 60 40 17 17 63 PH 37 7 39 AR 5 MA MG CY TA #4 BL 20 ET DO 60 04 05 30 30 00 KR Ac XA 50 -1 -0 .0 00 OG ti ZO 50 0- 5- 00 06 ER ve SI 09 20 20 60 N 60 17 17 63 PH ME 0 43 AR SY MA LA CY TE 8 #4 20 MG TA B DO 43 04 05 30 30 00 KR Ac NE 54 -0 -0 .0 00 OG ti PE 70 4- 5- 00 06 ER ve ZI 27 20 20 59 L 50 17 17 96 PH HC 3 57 AR L MA 5 CY MG #4 TA 20 BL ET DO 60 03 04 30 30 00 [...] 0 #4 MG 20 TA BL ET CA 68 03 03 60 30 00 [...] .0 00 OG ti OC 90 6- 1- 00 06 ER ve HL 18 20 [...] .0 00 OG ti XE 20 9- 1- 00 06 ER ve TI 00 20 [...] TE #4 5 20 MG TA B BU 50 03 03 30 15 00 HO Ac NH 38 -0 -3 .0 00 ME ti EN 30 6- 1- 00 04 TO ve OR 28 20 20 02 WN PH 79 17 17 17 IN 3 58 PH -N AR AL MA OX CY ON OF 8- 2 CY MG NT HI SL AN A DO 60 02 03 30 30 00 KR Ac XA 50 -2 -1 .0 00 OG ti ZO 50 1- 7- 00 06 ER ve SI 09 20 20 59 N 50 17 17 02 PH ME 0 55 AR SY MA LA CY TE 4 #4 20 MG TA B BU 50 02 03 26 13 00 HO Ac NH 38 -2 -1 .0 00 ME ti [...] CY MG #4 20 TA BL ET SO 64 01 02 60 30 00 [...] NT PO HI WD AN A AM 68 01 02 30 30 00 KR Ac LO 18 -2 -1 .0 00 OG ti DI 00 6- 7- 00 06 ER ve PI 75 20 20 59 NE 10 17 17 02 PH 3 54 AR BE MA SY CY LA TE #4 5 20 MG TA B DO 60 01 02 30 30 00 KR Ac XA 50 -2 -1 .0 00 OG ti ZO 50 6- 7- 00 06 ER ve SI 09 20 20 59 N 50 17 17 02 PH ME 0 55 AR SY MA LA CY TE 4 #4 20 MG TA B AM 69 01 02 30 30 00 [...] PO HI WD AN A AM 69 12 01 30 30 00 KR Ac LO 09 -1 -0 .0 00 OG ti DI 70 7- 9- 00 06 ER ve PI 12 20 20 57 NE 81 16 17 98 PH 5 42 AR BE MA SY CY LA TE #4 20 10 MG TA B BU 43 12 01 60 30 00 KR Ac NH 59 -1 -0 .0 00 OG ti OP 80 2- 9- 00 06 ER ve IO 53 20 20 58 N 70 16 17 05 PH HC 5 15 AR L MA SR CY 15 #4 0 20 MG TA BL ET Procedures Procedure DOS Code Location Performer Comment COMPREHEN 33480 LAB PIPER LAB PIPER SIVE 7 JAD JAD METABOL[place] [address] LAB PIPER LAB PIPER FREE 7 JAD J[place] [address] LAB PIPER LAB PIPER THYROID 7 JAD JAD STIMULATI HOLDINGS [place] [address] LAB PIPER LAB PIPER PROSTATE 7 JAD JAD SPECIFIC HOLDINGS HOLDINGS ANTIGEN TOTAL LIPID 74322 LAB PIPER LAB PIPER PANEL 7 JAD JAD HOLDINGS HOLDINGS BLOOD 39604 LAB PIPER LAB PIPER COUNT 7 JAD JAD COMPLETE HOLDINGS HOLDINGS AUTO&AUTO DIFRNTL WBC CV STRS 63195 [facility] TST 7 MEDICAL XERS&/OR SERV RX CONT FOUNDATIO ECG W/O N I&R CV STRS 52369 [facility] TST 7 HEALTHCAR HEALTHCAR XERS&/OR E E RX CONT [facility] ECG TRCG ONLY MYOCARDIA 12574 [facility] L SPECT 7 HEALTHCAR HEALTHCAR MULTIPLE E E STUDIES [facility] TECHNETIU A9500 [facility] M TC-99M 7 HEALTHCAR HEALTHCAR SESTAMIBI E E DX PER [facility] STUDY DOSE HGB 31113 [place] [facility] GLYCOSYLA 7 FAMILY PATRICIA HEALTH DEVICE CTR CLEARED FDA HOME USE BLOOD 52222 [facility] AL-ABED COUNT 7 RENAL HEMATOCRI CARE PSC T BASIC 69662 [facility] METABOLIC 7 RENAL RENAL PANEL CARE PSC CARE PSC CALCIUM IONIZED BLOOD 98418 [facility] COUNT 7 RENAL RENAL HEMOGLOBI CARE PSC CARE PSC N BASIC 33301 [facility] METABOLIC 7 HEALTHCAR HEALTHCAR PANEL E E CALCIUM [facility] TOTAL RADIOLOGI 76471 [place] [facility] C EXAM 6 FAMILY CHEST 2 HEALTH VIEWS CTR FRONTAL&L ATERAL RADEX 12981 [facility] RADHA RIBS UNI 6 INC W/POSTERO ANT CH MINIMUM 3 VIEWS RADEX HIP 27145 [facility] CUDA 6 INC UNILATERA L WITH PELVIS 2-3 VIEWS [facility] 93232 [facility] DISCHARGE 6 RENAL DAY CARE PSC MANAGEMEN T > 30 MIN SBSQ [id number] [facility] 6 RENAL MOH CARE/DAY CARE PSC 35 MINUTES SBSQ [phone] [facility] 6 RENAL MOH CARE/DAY CARE PSC 35 MINUTES SBSQ [phone] [facility] 6 RENAL MOH CARE/DAY CARE PSC 25 MINUTES SBSQ [id number] [facility] 6 RENAL MOH CARE/DAY CARE PSC 35 MINUTES SBSQ [phone] [facility] 6 RENAL CARE/DAY CARE PSC 35 MINUTES SBSQ [id number] [facility] 6 RENAL CARE/DAY CARE PSC 35 MINUTES RADIOLOGI 79946 [facility] [place] KOSTELIC C 6 RADIOLOGY EXAMINATI ON CHEST SINGLE VIEW FRONTAL RMVL VAZQUEZ 02791 [facility] [place] CVC W/O 6 RADIOLOGY LD IV ALL SUBQ PORT/REAMING MACHINE OPERATOR SBSQ [id number] [facility] 6 RENAL MOH CARE/DAY CARE PSC 35 MINUTES SBSQ [id number] [facility] 6 RENAL MOH CARE/DAY CARE PSC 35 MINUTES SBSQ [phone] [facility] 6 RENAL MOH CARE/DAY CARE PSC 35 MINUTES SBSQ [phone] [facility] 6 RENAL MOH CARE/DAY CARE PSC 35 MINUTES SBSQ [id number] [facility] 6 RENAL MOH CARE/DAY CARE PSC 35 MINUTES SBSQ [id number] [facility] 6 RENAL MOH CARE/DAY CARE PSC 35 MINUTES SBSQ [id number] [place] [address] RENAL MOH CARE/DAY CARE PSC 35 MINUTES SBSQ [id number] [facility] 6 RENAL MOH CARE/DAY CARE PSC 35 MINUTES SBSQ [id number] [place] [address] RENAL MOH CARE/DAY CARE PSC 35 MINUTES SBSQ [phone] [facility] 6 RENAL MOH CARE/DAY CARE PSC 35 MINUTES ECG 83178 [facility] ROUTINE 6 [place] ECG CLINIC W/LEAST PSC 12 LDS I&R ONLY RADIOLOGI 02757 [facility] 6 RADIOLOGY LD IV ALL EXAMINATI ON CHEST SINGLE VIEW FRONTAL INITIAL 47757 [facility] 6 RENAL CARE/DAY CARE PSC 70 MINUTES SBSQ [id number] [place] [address] MEDICAL CARE/DAY SERV 25 FOUNDATIO MINUTES N GROUND A0425 [facility] 6 [facility] METRO PER AMBULANCE AMBULANCE STATUTE MILE SBSQ [phone] [facility] 6 MEDICAL CARE/DAY SERV 25 FOUNDATIO MINUTES N RADIOLOGI 91002 [facility] 6 MEDICAL EXAMINATI SERV ON CHEST FOUNDATIO SINGLE N VIEW FRONTAL ECG 20887 [facility] ROUTINE 6 MEDICAL TECHNOLOGY RESOURCE TEACHER ECG SERV W/LEAST FOUNDATIO 12 LDS N I&R ONLY SBSQ [phone] [facility] 6 MEDICAL SYBIL CARE/DAY SERV 25 FOUNDATIO MINUTES N BLOOD 19564 [facility] FABIÁN SMEAR 6 Y OF [facility] [facility] [place] L INTERP HOSPI PHYS W/WRIT REPORT SBSQ [id number] [place] [address] MEDICAL SYBIL CARE/DAY SERV 25 FOUNDATIO MINUTES N SBSQ [id number] [facility] 6 MEDICAL SYBIL CARE/DAY SERV 25 FOUNDATIO MINUTES N SBSQ [phone] [facility] 6 MEDICAL CARE/DAY SERV 25 FOUNDATIO MINUTES N US VASC 98055 [facility] ACCESS 6 MEDICAL GAR[place]TT SITS VSL SERV PATENCY FOUNDATIO NDL ENTRY N INSJ 40659 [facility] TUNNELED 6 MEDICAL GARRETT CVC W/O SERV SUBQ FOUNDATIO PORT/REAMING MACHINE OPERATOR N AGE 6 YR/> FLUORO 43768 [facility] MEDICAL [place] VENOUS SERV ACCESS FOUNDATIO DEV N PLACEMENT SBSQ 89002 [place] [address] MEDICAL CARE/DAY SERV 25 FOUNDATIO MINUTES N SBSQ [id number] [place] [address] MEDICAL CARE/DAY SERV 35 FOUNDATIO MINUTES N SBSQ 94370 [place] [address] MEDICAL AMR CARE/DAY SERV 35 FOUNDATIO MINUTES N SBSQ 33192 [place] [address] MEDICAL AMR CARE/DAY SERV 35 FOUNDATIO MINUTES N RADIOLOGI 11275 [place] ZAGUR[facility] C 6 MEDICAL AYA MAR EXAMINATI SERV ON CHEST FOUNDATIO SINGLE N VIEW FRONTAL RADIOLOGI 05648 [place] DREW CON C 6 MEDICAL EXAMINATI SERV ON CHEST FOUNDATIO SINGLE N VIEW FRONTAL ECG 07549 [place] [facility] ROUTINE 6 MEDICAL NAN ECG SERV W/LEAST FOUNDATIO 12 LDS N I&R ONLY SBSQ 86994 [place] [address] MEDICAL CARE/DAY SERV 35 FOUNDATIO MINUTES N ECHO 51819 [facility] DARRIAN C R-T 2D SERV W/WO FOUNDATIO M-MODE N REC F-UP/LMTD CRITICAL 39437 [facility] BILL CARE 6 NURSE RAC ILL/INJUR PRACTITIO ED NER GR PATIENT INIT 30-74 MIN ECG 54978 [facility]ICAL ECG SERV W/LEAST FOUNDATIO 12 LDS N I&R ONLY RADIOLOGI 92200 [place] AMRITA C 6 MEDICAL JIGNESH EXAMINATI SERV ON CHEST FOUNDATIO SINGLE N [place] FRONTAL RADIOLOGI 64891 [place] ZAGUROVSK C 6 MEDICAL AYA MAR EXAMINATI SERV ON CHEST FOUNDATIO SING[place] N [place] FRONTAL INSJ 10959 [place] JHON TUNNELED 6 MEDICAL GARRETT CVC W/O SERV SUBQ FOUNDATIO 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 VENA CAVA PERQ PROTEIN 08056 [facility] MIGUEL A ELECTROPH 6 Y OF ORETIC [place] FRACTJ&QU HOSPI ANTJ SERUM PROTEIN 44484 [facility] ELECTROP 6 Y OF FXJ&JASON [place] [facility] FLUS [facility] CONCENTRA TI INITIAL 03915 [place] ALEJANDRA MARION INPATIENT 6 MEDICAL CONSULT SERV NEW/ESTAB FOUNDATIO PT 55 N MIN RADIOLOGI 55361 [place] GOLDSMITH C EXAM 6 MEDICAL TAO PELVIS SERV CHE COMPL FOUNDATIO MINIMUM 3 N VIEWS SBSQ 85942 [facility] 6 MEDICAL ANI CARE/DAY [place] [address] [place] [address] [place] MATEUS JAM RETROPERI 6 MEDICAL TONEAL SERV REAL TIME FOUNDATIO W/IMAGE N COMPLETE SBSQ 32610 [place] [address] MEDICAL ANI CARE/DAY SERV 25 FOUNDATIO MINUTES N RADIOLOGI 04522 [place] DREW CON C 6 MEDICAL EXAMINATI SERV ON CHEST FOUNDATIO SINGLE N VIEW FRONTAL CRITICAL 37892 [place] [facility] CARE 6 MEDICAL ANI ILL/INJUR SERV ED FOUNDATIO PATIENT N INIT 30-74 MIN RADIOLOGI 49878 [place] CROWE C 6 MEDICAL JIGNESH EXAMINATI SERV ON CHEST FOUNDATIO SINGLE N [place] FRONTAL RADIOLOGI 12404 [place] SAE C 6 MEDICAL ZECHARIAH EXAMINATI SERV ON CHEST FOUNDATIO SINGLE N [place] FRONTAL INSJ 44522 [place] SONIDO NON-TUNNE 6 MEDICAL LED SERV CENTRAL FOUNDATIO VENOUS N CATH AGE 6 YR/> INSERTION [id number] [facility] INFUSION 6 HEALTHCAR HEALTHCAR DEVC E E [facility] VENA CAVA PERQ RADIOLOGI [address]59 [place] DREW CON C 6 MEDICAL EXAMINATI SERV ON CHEST FOUNDATIO SINGLE N VIEW FRONTAL RADEX 65467 [place] ROBERT ABDOMEN 1 6 MEDICAL ART SERV ANTEROPOS FOUNDATIO TERIOR N VIEW RADIOLOGI 04809 [place] ZAGUROVSK C 6 MEDICAL AYA EXAMINATI SERV ON CHEST FOUNDATIO SINGLE N VIEW FRONTAL INSJ 30377 [place] SONIDO NON-TUNNE 6 MEDICAL LED SERV CENTRAL FOUNDATIO VENOUS N CATH AGE 5 [place]R/> [place] [address] [place] GUARDADO ABDOMEN & 6 MEDICAL SCO PELVIS SERV W/CONTRAS FOUNDATIO T N MATERIAL SBSQ 89394 [place] [facility] 6 MEDICAL LIZETH CARE/DAY SERV 25 FOUNDATIO MINUTES N ECG 41919 [place] MORIN ROUTINE 6 MEDICAL NAN ECG SERV W/LEAST FOUNDATIO 12 LDS N I&R ONLY INSERTION [id number] [facility] INFUSION 6 HEALTHCAR HEALTHCAR DEVC E E [facility] VENA CAVA PERQ RESPIRATO [id number] [facility] RY 6 HEALTHCAR HEALTHCAR VENTILATI E E ON 24-96 [facility] CONSECUT[facility] VE HOURS INSERT [id number] [facility] ENDOTRACH 6 HEALTHCAR HEALTHCAR L AIRWAY E E [facility] NEHEMIAS/ART OPENING CT THORAX 61914 [place] CROWE 6 MEDICAL JIGNESH W/CONTRAS SERV T FOUNDATIO MATERIAL N INITIAL 70680 [place] CAVATASSI INPATIENT 6 MEDICAL LIZETH CONSULT SERV NEW/ESTAB FOUNDATIO PT 80 N MIN ECHO 22254 NINA INFANTE TTHRC R-T 6 MEDICAL DARRIAN 2D SERV W/WOM-MOD FOUNDATIO E COMPL N SPEC&COLR D RADIOLOGI 01856 [place] CHAPARRITA PRADIP C 6 MEDICAL EXAMINATI SERV ON CHEST FOUNDATIO SINGLE N VIEW FRONTAL RADIOLOGI 62860 [place] MARVIN CHAVEZ C 6 MEDICAL EXAMINATI SERV ON CHEST FOUNDATIO SINGLE N VIEW FRONTAL RADIOLOGI 32652 [facility] C 6 EXAMINATI RADIOLOGY RADIOLOGY ON CHEST ASSOCIAT ASSOCIAT SINGLE VIEW FRONTAL CT THORAX 91967 [facility] W/O 6 CONTRAST RADIOLOGY RADIOLOGY MATERIAL ASSOCIAT ASSOCIAT ECG 94719 [place] SWETA CHI ROUTINE 6 MEDICAL ECG SERV W/LEAST FOUNDATIO 12 LDS N I&[place] [address] [facility] ABDOMEN & 6 PELVIS RADIOLOGY RADIOLOGY W/O ASSOCIAT ASSOCIAT CONTRAST MATERIAL GROUND A0425 [facility] 6 CO AMB CO AMB PER SERVICE SERVICE [facility] 91735 K[facility] DALEY MAR DISCHARGE 6 NURSE DAY PRACTITIO MANAGEMEN NER GR T 30 MIN/< COMMODE E0163 [facility] CHAIR 6 MOBILE OR STATIONAR Y W/FIXED ARMS WALKER E0143 [facility] FOLDING 6 WHEELED ADJUSTABL E/FIXED HEIGHT SBSQ 23643 [facility] 6 MEDICAL CARE/DAY SERV 15 FOUNDATIO MINUTES N SBSQ 28353 [facility] 6 [place] ER CARE/DAY PHYSICIAN 25 S ASSIST MINUTES SBSQ 57105 [facility] 6 [place] CHR CARE/DAY PHYSICIAN 25 S ASSIST MINUTES RADIOLOGI [address] [facility] C 6 MEDICAL JULIO EXAMINATI SERV ON PELVIS FOUNDATIO 1/2 N VIEWS SBSQ 81201 [place] [facility] 6 MEDICAL OPAL CARE/DAY SERV 35 FOUNDATIO MINUTES N RADIOLOGI 12189 [place] WILFR[facility] C EXAM 6 MEDICAL JULIO PELVIS SERV COMPL FOUNDAT[place] MINIMUM [address] [place] [address] [place] TRUE [place] ANGIOGRAP 6 MEDICAL HY CHEST SERV W/CONTRAS FOUNDATIO T/[place] [address] [place] CERVICAL 6 MEDICAL SPINE W/O SERV CONTRAST FOUNDATIO MATERIAL N AMB A0427 [facility] SUBRAMANIAN SERVICE [address] [place] [address] ALS AMBULANCE AMBULANCE EMERGENCY SE SE TRANSPORT LEVEL 1 AMB A0431 AIR AIR SERVICE 6 METHODS METHODS CONVNTION [facility] AIR SRVC TRANSPORT [address] GROUND A0425 MARILYNN TRIMBLES MILEAGE [address] [place] [address] PER AMBULANCE AMBULANCE STATUTE SE SE MILE RADEX HIP 44801 [place] RODRIGUE LIRA 6 MEDICAL MAHSA UNILATERA SERV L WITH FOUNDATIO PELVIS N 2-3 VIEWS ECG 62543 [place] MALKA MIGUEL A ROUTINE 6 MEDICAL ECG SERV W/LEAST FOUNDATIO 12 LDS N I&[place] [address] [place] THORACIC 6 MEDICAL SPINE W/O SERV CONTRAST FOUNDATIO [place] PELVIS [address]272 [place] W/O 6 MEDICAL CONTRAST SERV MATERIAL FOUNDATIO N RADEX 42575 [place] RODRIGUE LIRA WRIST 6 MEDICAL MAHSA COMPLETE SERV MINIMUM [address] LUMBAR [address] [place] TRUE [place] SPINE 6 MEDICAL W/[place] [address] [place] ABDOMEN & 6 MEDICAL PELVIS SERV [place] [address] [place] RODRIGUE LIRA HEAD/BRAI 6 MEDICAL MAHSA N W/O SERV CONTRAST FOUNDATIO MATERIAL N RADIOLOGI 06486 RADI[facility] FARLEY GRA C EXAM 5 INC CHEST 2 VIEWS FRONTAL&L ATERAL MOB:WALK G8978 [facility] U[facility] MOV ARND 4 JR JIGNESH FCN CLINE ORTHOPAED TX OUTSET ICS SPORT REP INTRVL SELF-CARE 59743 [facility] /HOME 4 JR JIGNESH MGMT ORTHOPAED TRAINING ICS SPORT EACH 15 MINUTES PHYSICAL 64820 [facility] THERAPY 4 JR JIGNESH EVALUATIO ORTHOPAED N ICS SPORT THERAPEUT 06768 [facility] IC PX 1/> 4 JR JIGNESH AREAS ORTHOPAED EACH 15 ICS SPORT MIN EXERCISES MOB: WALK G8979 [facility] U[facility] MOV ARND 4 JR JIGNESH FCN CLINE ORTHOPAED GOAL REP ICS SPORT INTRVL&D/ C NON-INVAS 72462 [employer] NATY 4 INC - INC - PHYSIOLOG IC STUDY EXTREMITY 3 LEVLS TECHNETIU A9500 [facility] [place] Gillis TC-99M 4 CO CO [facility] DX PER STUDY DOSE MYOCARDIA 64064 [facility] [place] Grimes SPECT 4 CO CO [facility] STUDIES CV STRS 91130 [place] YANETH TST 4 TRACE GLE XERS&/OR FAMILY RX CONT HEALTH ECG W/O I&R CV STRS 62150 [place] STRINGER TST 4 CO CO XERS&/OR HOSPITAL HOSPITAL RX CONT ECG TRCG ONLY CV STRS 18037 [place] YANETH TST 4 TRACE GLE XERS&/OR FAMILY RX CONT HEALTH ECG I&R ONLY DUP-SCAN 57881 [employer] ARTL JADE 4 INC - INC - ABDL/PEL/ SCROT&/RP R ORGN COM MRI BRAIN 87132 [place] YANETH BRAIN 4 REGIONAL GLE STEM W/O MEDICAL W/CONTRAS BALWINDER T MATERIAL DUPLEX 35541 [employer] SCAN 4 INC - INC - EXTRACRAN IAL ART COMPL BI STUDY ECHO 91218 [employer] TTHRC R-T 4 INC - INC - 2D W/WOM-MOD E COMPL SPEC&COLR D INJECTION J2250 [place] STRINGER 4 CO CO [facility] HCL [place] 1 [place] [address] [place] STRING[facility] SURG 4 CO CO PATHOLOGY [facility] GROSS&JIGNESH ROSCOPIC EXAM ANES 26743 [place] STRINGER LOWER 4 CO CO INTESTINE [facility] ENDOSCOPY DISTAL DUODENUM RINGERS J7120 [place] STRINGER LACTATE 4 CO CO INFUSION [facility] UP TO 1000 CC COLONOSCO 54206 [place] STRINGER PY 4 CO CO W[facility] SINGLE/MU LTIPLE LIPOPROTE 57436 [place] IN DIR 4 TRACE GLE MARVA HIGH FAMILY DENSITY HEALTH CHOLESTER OL 3D 75382 [place] YANETH RENDERING 4 REGIONAL GLE W/INTERP MEDICAL & BALWINDER POSTPROCE SS SUPERVISI ON MRI 06548 [place] YANETH SPINAL 4 REGIONAL GLE CANAL MEDICAL CERVICAL BALWINDER W/O CONTRAST MATRL LIPOPROTE 59837 [place] YAN[place] IN DIR 4 TRACE GLE [facility]IGH FAMILY DENSITY HEALTH CHOLESTER OL SPMTRY 38612 [place] Y[place] W/VC 4 TRACE GLE EXPIRATOR FAMILY Y [facility] W/WO MXML VOL VNTJ Encounters Encounter Start End Date Code Location Performer Type Date HOSPITAL - 7 7 [facility] OUTPATIEN E T [facility]PITALS OFFICE 66329 [facility] OUTPATIEN 7 7 FAMILY T VISIT HEALTH 15 CTR MINUTES HOSPITAL - 7 7 [facility] OUTPATIEN E T HOSPITALS OFFICE 03512 [facility] MICHAEL-Arabella OUTPATIEN 7 7 NURSE MAMADOU T VISIT PRACTITIO 25 NER GR MINUTES OFFICE 69776 [facility]CI[facility] BUCKNER OUTPATIEN 6 6 FAMILY T VISIT HEALTH 15 CTR MINUTES EMERGENCY 59714 [facility] 6 PEDRO ZEFERINO VISIT EMERGENCY HIGH PHYS SEVERITY& THREAT FUNCJ EMERGENCY 55511 NINA MESA 6 6 MEDICAL DEPARTMEN SERV T VISIT FOUNDATIO HIGH/URGE N NT SEVERITY [facility]OSPITAL [facility] - [facility] INPATIENT E [facility]ALS [facility]PITAL UNIVERSIT - 6 6 Y INPATIENT HOSPITAL EMERGENCY 91961 NINA WARNER 6 6 MEDICAL IAN DEPARTMEN SERV T VISIT FOUNDATIO HIGH/URGE N NT SEVERITY OFFICE 71144 N[facility]CIE SANDOVAL OUTPATIEN 6 6 FAMILY T VISIT HEALTH 15 CTR MINUTES OFFICE 07814 [facility] SANDOVAL OUTPATIEN 6 6 FAMILY T VISIT HEALTH 15 CTR MINUTES OFFICE 09241 [facility] SANDOVAL OUTPATIEN 5 5 PRIMARY T VISIT CARE 15 CENTER MINUTES OFFICE 18832 [facility] OUTPATI[facility] 4 4 TRACE T VISIT FAMILY 25 [facility] [place] - 4 4 CO [facility] T OFFICE 45364 [facility] OUTPATIEN 4 4 TRACE T VISIT FAMILY 15 [facility] [place] - 4 4 CO [facility] T OFFICE 91062 [facility] OUTPATIEN 4 4 TRACE GLE T VISIT 5 FAMILY LOCATED WITHIN [facility]
--- OUTSIDE RECORDS SUMMARY | 2016-10-05 22:40 | External Medical Summary Rpt ---
Author Author , Organization [employer] Address Unknown Phone Unavailable Care Team Providers Care Flame Cutting Supervisor Name Role Phone [facility], [facility] Unavailable Unavailable [facility], [facility] Unavailable Unavailable [facility] Unavailable Unavailable [facility], Unavailable Unavailable [facility] AL-ABED, AL-ABED Unavailable Unavailable AL-ABED MOH, [...] BRANSTETTER CROWE JIGNESH, CROWE Unavailable Unavailable JIGNESH [facility] Unavailable Unavailable [facility] UZIEL JR JIGNESH, Unavailable Unavailable UZIEL JR JIGNESH CAVATASSI LIZETH, Unavailable Unavailable CAVATASSI LIZETH NELA ACCOUNT RELATIONSHIP MANAGER, NELA Unavailable Unavailable ACCOUNT RELATIONSHIP MANAGER [facility], Unavailable Unavailable [facility] CUDA, CUDA Unavailable Unavailable SONIDO, SONIDO Unavailable Unavailable EL KHOULI, EL KHOULI Unavailable Unavailable [facility], Unavailable Unavailable [facility] Unavailable Unavailable MEDICAL BALWINDER, [facility] MEDICAL BALWINDER MORIN NAN, MORIN Unavailable [...] Unavailable MALEK SHE, MALEK SHE Unavailable Unavailable [facility] Unavailable Unavailable ASSOCIAT, [facility] MOHAMED [facility], MOHAMED Unavailable Unavailable [facility] Unavailable Unavailable [facility], [facility] Unavailable Unavailable AMBULANCE SE, [facility] Unavailable Unavailable AMBULANCE SE, [facility] SE CHAPARRITA PRADIP, CHAPARRITA PRADIP Unavailable Unavailable GOLDSMITH TAO Unavailable Unavailable CHE, GOLDSMITH TAO CHE FARLEY GRA, FARLEY GRA Unavailable Unavailable PORNOY ZEFERINO, PORNOY Unavailable Unavailable [facility], Unavailable [facility] REKHRAJ, REKHRAJ Unavailable Unavailable MELGAR, MELGAR Unavailable Unavailable MELGAR SYBIL, Unavailable Unavailable MELGAR SYBIL [facility] Unavailable Unavailable [facility], [facility] Unavailable Unavailable AMB[facility], [facility] COSME NIURKA, COSME NIURKA Unavailable [...] [facility] Unavailable [facility], [facility] Unavailable Unavailable ASSIST, [facility], Unavailable [facility]available [facility] Unavailable Unavailable [place] [facility] BILL RAC, VAN Unavailable Unavailable DYKE [...] HOSPITALS CKD OR UNS CKD I2510 [facility]SHD SHISHMAREF IRA 06-26-2016 CORONARY HEALTHCARE ARTERY W/O HOSPITALS ANGINA [...] PSC STAGE 3 MODERATE R441 VISUAL 05-31-2016 [facility] J90 PLEURAL 05-13-2016 [place] [facility] ELSEWHERE CLASSIFIED R05 COUGH 05-13-2016 [facility] R0600 DYSPNEA 05-13-2016 [facility] UNSPECIFIED INC R062 WHEEZING 05-13-2016 [facility] INC K06332 PAIN IN 05-06-2016 [facility] LEFT HIP INC [...] LUNG FIELD R9431 ABNORMAL 04-17-2016 [facility] PSC [id number] PAIN IN 04-16-2016 [facility] UNSPECIFIED AMBULANCE HIP D631 ANEMIA IN 04-15-2016 [facility] DISEASE E8779 OTHER FLUID 04-15-2016 [facility] OVER[facility] N179 ACUTE 04-15-2016 [facility] FAILURE [facility] UNSPECIFIED N250 RENAL 04-15-2016 [place] [facility] OSTEODYSTRO SERV PHY [facility] R319 HEMATURIA 04-15-2016 [facility] UNSPECIFIED SERV [facility] R809 PROTEINURIA 04-15-2016 [facility] UNSPECIFIED [facility] 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 [facility] I510 CARDIAC 04-13-2016 [facility] DEFECT [facility] ACQUIRED N15881 OTHER 04-12-2016 [facility] A HOSPI E8339 OTHER 04-11-2016 [place] [facility] DISORDERS [facility] OF [facility]OUND[facility] PHOSPHORUS METABOLISM J9601 ACUTE 04-11-2016 [facility]PIRATORY [facility] FAILURE [facility] WITH HYPOXIA E872 ACIDOSIS 04-10-2016 [facility] N186 END STAGE 04-10-2016 [facility] RE[facility] DISEASE [facility] Z4901 ENCOUNTER 04-10-2016 [facility] FITTING&ADJ SERV UST [facility]OUNDATION EXTRACORP DIALYSIS CATH J811 CHRONIC 04-06-2016 [place] [facility] PULMONARY SERV EDEMA F[facility] B9561 METHICILLIN 04-05-2016 [facility] NURSE PRACTITIONE SUSCEPTIBLE R GR STAPH INFEC DX CLASS ELS I509 HEART 04-05-2016 [place] [facility] FAILURE [facility] UNSPECIFIED FOUNDATION I5189 OTHER 04-05-2016 [place] [facility] I[facility]-DEFINED SERV HEART [facility]OUNDATION DISEASES J80 ACUTE 04-05-2016 [facility] NURSE RESPIRATORY PRACTITIONE DISTRESS R GR SYNDROME Z049 ENCOUNTER 04-05-2016 [place] [facility] EXAMINATION SERV &OBSERVATIO [facility] N FOR UNS REASON Z9989 DEPENDENCE 04-05-2016 [facility] NURSE ON OTHER PRACTITIONE ENABLING R GR MACHINES & DEVICES R000 TACHYCARDIA 04-04-2016 [facility] UNSPECIFIED FOUNDATION R0602 SHORTNESS 04-04-2016 [place] [facility] OF BREATH SERV FOUNDATION R748 ABNORMAL 04-03-2016 [place] [facility] LEVELS OF SERV OTHER SERUM FOUNDATION ENZYMES R7989 OTHER SPEC 04-03-2016 [place] [facility] ABNORMAL SERV FINDINGS [facility] BLOOD CHEMISTRY [id number] UNS 04-02-2016 [facility]OS[facility] INITIAL ENC CLOS FRACTURE [id number] FX UNS PART 04-02-2016 [facility] SPN & PELV INIT ENC BRITTNEE 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 [facility] DISEASE UNSPECIFIED J449 CHRONIC 04-01-2016 [place] [facility] OBSTRUCTIVE SERV PULMONARY FOUNDATION DISEASE UNS O31290 PAIN IN 04-01-2016 [place] [facility] LEFT LEG SERV [facility] J9690 RESP FAIL 03-30-2016 [place] [facility] UNS UNS SERV WHETHER FOUNDATION W/HYPOXIA/H YPERCAPNIA J984 OTHER 03-30-2016 [place] [facility] DISORDERS SERV OF LUNG FOUNDATION Z9911 DEPENDENCE 03-30-2016 [place] [facility] ON SERV RESPIRATOR FOUNDATION VENTILATOR STATUS R579 SHOCK 03-28-2016 [place] [facility] UNSPECIFIED SERV FOUNDATION Z4682 ENCOUNTER 03-27-2016 [place] [facility] FITTING & SERV ADJUST FOUNDATION NON-VASCULA R CATHETER A419 SEPSIS 03-26-2016 [place] [facility] UNSPECIFIED SERV ORGANISM FOUNDATION L6387IE MX FX PELV 03-26-2016 [place] [facility] W/O DISRUPT SERV PELV RING FOUNDATION INITIAL CLOS FX Q72PWLX UNSPECIFIED 03-26-2016 [facility] FALL SERV INITIAL FOUNDATION ENCOUNTER I330 ACUTE AND 03-25-2016 [place] [facility] SUBACUTE SERV INFECTIVE FOUNDATION ENDOCARDITI S I348 OTHER 03-25-2016 [place] [facility] NONRHEUMATI SERV C MITRAL FOUNDATION VALVE DISORDERS I517 CARDIOMEGAL 03-25-2016 [place] [facility] Y SERV [facility] 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 PULMONARY 03-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 [place] [facility]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 SERV MICROLITHIA FOUNDATION SIS R188 OTHER 03-25-2016 [place] [facility] ASCITES SERV [facility] R4182 ALTERED 03-25-2016 [place] [facility] MENTAL SERV STATUS FOUNDATION UNSPECIFIED U9027LZ UNS 03-25-2016 [place] [facility] FRACTURE SERV STERNUM FOUNDATION INITIAL ENC CLOS FRACTURE R4632NY FRACTURE 03-25-2016 [place] [facility] MANUBRIUM SERV INITIAL ENC FOUNDATION FOR CLOS FRACTURE E88623R CONTUSION 03-25-2016 [place] [facility] OF OTHER SERV INTRA-ABD FOUNDATION ORGANS INITIAL ENC J189 PNEUMONIA 03-24-2016 [place] [facility] UNSPECIFIED SERV ORGANISM FOUNDATION A4101 SEPSIS D/T 03-22-2016 [facility] SUSCEPTIBLE STAPH G9341 METABOLIC 03-22-2016 [facility] I214 NON-ST 03-22-2016 [facility] INFARCTION I4581 LONG QT 03-22-2016 [place] [facility] SYNDROME SERV [facility]OUND[facility] J159 UNSPECIFIED 03-22-2016 [facility] J441 CHRONIC 03-22-2016 [facility] P[facility] DZ W/EXACERBAT ION R0902 HYPOXEMIA 03-22-2016 [facility] U[facility]75[facility] MULTIPLE FX 03-22[facility] SIDE INIT ASSOCIAT ENC CLOS FRACTURE I4440SQ OTHER FX OF 03-22-[facility] INITIAL ASSOCIAT ENCOUNTER CLOSED FX S33858Y FRACTURE 03-22-2016 [facility] RIM LT ASSOCIAT PUBIS INIT ENC CLOS FX [id number] OTHER SPEC 03-22-2016 [facility] FX LT [facility] INITIAL ASSOCIAT CLOS FRACTURE G8911 ACUTE PAIN 03-18-2016 [facility] DUE TO PHYSICIANS TRAUMA ASSIST [id number] STRESS 03-18-2016 [place] [facility] FRACTURE SERV PELVIS FOUNDATION INITIAL ENC FOR FRACTURE R339 RETENTION 03-18-2016 [facility] UNSPECIFIED ASSIST G88736Z UNSPECIFIED 03-18-2016 [place] [facility] FRACTURE SERV LT PUBIS FOUNDATION INITIAL CLOS FX D73181Z MX FX PELV 03-18-2016 [facility] UNSTBL DISRUPT PELV RING INIT BRITTNEE FX P039M4F CONCUSSION 03-16-2016 [facility] W/LOC UNS HOSPITAL DURATION INITIAL ENCOUNTER M37137O UNS 03-16-2016 [facility] FRACTURE LT HOSPITAL ACETABULUM INIT ENC CLOSED FX E47346Z MX FX 03-16-2016 [facility] PELVIS STBL SERV DISRUPT FOUNDATION PELV RING INIT BRITTNEE FX S5787ZW FRACTURE 03-16-2016 [place] [facility] OTH PARTS SERV PELVIS INIT FOUNDATION ENC CLOS FRACTURE O6315HJ OTHER FALL 03-16-2016 [place] [facility] FROM ONE SERV LEVEL FOUNDATION ANOTHER INITIAL ENCNTR I498 OTHER 03-15-2016 [place] [facility] SPECIFIED SERV CARDIAC FOUNDATION ARRHYTHMIAS P69820 PAIN IN 03-15-2016 [place] [facility] LEFT WRIST SERV FOUNDATION M545 LOW BACK 03-15-2016 [facility] [place] R1900 INTRA-ABD & 03-15-2016 [place] [facility] PELVIC SERV SWELLING FOUNDATION MASS & LUMP UNS SITE R222 LOCALIZED 03-15-2016 [place] [facility] SWELLING SERV MASS AND FOUNDATION LUMP TRUNK K556L5Y UNS 03-15-2016 [facility] INTRACRAN [place] INJURY LOC 30 MIN/LESS INIT ENC U4359BR UNSPECIFIED 03-15-2016 [place] [facility] INJURY OF SERV HEAD FOUNDATION INITIAL ENCOUNTER O930EXW UNSPECIFIED 03-15-2016 [place] [facility] INJURY OF SERV THORAX FOUNDATION INITIAL ENCOUNTER K502BFT CONTUSION 03-15-2016 [place] [facility] LOWER BACK SERV & PELVIS FOUNDATION INITIAL ENCOUNTER T07 UNSPECIFIED 03-15-2016 [facility] INJURIES AMBULANCE SE K56EOJE FALL FROM 03-15-2016 [facility] INITIAL AMBULANCE ENCOUNTER SE Y49PFNA OTHER SPEC 03-15-2016 [place] [facility] EVENTS SERV UNDETERMINE FOUNDATION D INTENT INIT ENC Z743 NEED FOR 03-15-2016 [facility] CONTINUOUS [place] SUPERVISION 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 4011 ESSENTIAL 01-05-2015 [facility] HYPERTENSIO PRIMARY N, BENIGN CARE CENTER 4580 ORTHOSTATIC 01-05-2015 [facility] PRIMARY HYPOTENSION CARE CENTER 88250 OTHER 07-05-2014 [facility] DYSPNEA AND INC RESPIRATORY ABNORMALITI ES 7862 COUGH 07-05-2014 [facility] INC 41602 OSTEOARTHRO 03-07-2014 [facility] S UNSPEC ORTHOPAEDIC WHETHER S SPORT GEN/LOC UNSPEC SITE 7242 LUMBAGO 03-07-2014 [facility] S SPORT 7244 THORACIC/NELSON 03-07-2014 [facility] MBOSACRAL ORTHOPAEDIC NEURITIS/RA S SPORT DICULITIS UNSPEC 7812 ABNORMALITY 03-07-2014 [facility] OF GAIT ORTHOPAEDIC S SPORT 4439 UNSPECIFIED 03-03-2014 [place] PERIPHERAL [facility] VASCULAR FAMILY DISEASE HEALTH V5883 ENCOUNTER 03-03-2014 [place] FOR [facility]ACE THERAPEUTIC FAMILY DRUG HEALTH MONITORING 51292 ATHEROSLERO 02-22-2014 [facility] INC - EXTREM W/INTERMIT CLAUDICAT 4019 UNSPECIFIED 02-03-2014 [facility] ESSENTIAL HOSPITAL HYPERTENSIO N 7804 DIZZINESS 02-03-2014 [facility] GIDDINESS 43853 SHORTNESS 02-03-2014 [facility] BREATH HOSPITAL 12356 CHEST PAIN 02-03-2014 [facility] UNSPECIFIED HOSPITAL 89410 CHRONIC 01-21-2014 [place] 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 HEALTH 5569 UNSPECIFIED 12-31-2013 [place] ULCERATIVE TRACE COLITIS FAMILY HEALTH 5589 OTH&UNSPEC 12-31-2013 [facility] NONINFECTIO HOSPITAL US GASTROENTER ITIS&COLITI S V7651 SPECIAL 12-31-2013 [facility] SCREENING [facility] FOR MALIGNANT NEOPLASMS COLON 2724 OTHER AND 12-27-2013 [place] UNSPECIFIED TRACE FAMILY HYPERLIPIDE HEALTH LAURENT 7231 CERVICALGIA 12-24-2013 [facility] BALWINDER Medications Na ND Rx Da Fi [...] 04 05 60 30 00 KR Ac [place] 09 -1 -0 .0 00 OG ti [...] 03 03 30 15 00 HO Ac WI 38 -0 -3 .0 00 ME ti [...] 02 03 26 13 00 HO Ac WI 38 -2 -1 .0 00 ME ti [...] 12 01 60 30 00 KR Ac WI 59 -1 -0 .0 00 OG ti OP 80 2- 9- 00 06 ER ve IO 53 20 20 58 N 70 16 17 05 PH HC 5 15 AR L MA SR CY 15 #4 0 20 MG TA BL ET Procedures Procedure DOS Code Location Performer Comment COMPREHEN 97280 LAB PIPER LAB PIPER SIVE 7 JAD JAD METABOL[place] [address] LAB PIPER LAB PIPER FREE 7 JAD J[place] [address] LAB PIPER LAB PIPER THYROID 7 JAD JAD STIMULATI [place] [address] LAB PIPER LAB PIPER PROSTATE 7 JAD JAD SPECIFIC [facility] ANTIGEN TOTAL LIPID 15243 LAB PIPER LAB PIPER PANEL 7 JAD JAD [facility] BLOOD 65683 LAB PIPER LAB PIPER COUNT 7 JAD JAD COMPLETE [facility] AUTO&AUTO DIFRNTL WBC CV STRS 46485 [facility] TST 7 MEDICAL XERS&/OR SERV RX CONT FOUNDATIO ECG W/O N I&R CV STRS 36768 [facility] TST 7 HEALTHCAR HEALTHCAR XERS&/OR E E RX CONT [facility] ECG TRCG ONLY MYOCARDIA 71168 [facility] L SPECT 7 HEALTHCAR HEALTHCAR MULTIPLE E E STUDIES [facility] TECHNETIU A9500 [facility] M TC-99M 7 HEALTHCAR HEALTHCAR SESTAMIBI E E DX PER [facility] STUDY DOSE HGB 94428 [place] [facility] GLYCOSYLA 7 FAMILY PATRICIA HEALTH DEVICE CTR CLEARED FDA HOME USE BLOOD 42853 [facility] AL-ABED COUNT 7 RENAL HEMATOCRI CARE PSC T BASIC 13474 SHANICE DE PAZGR[facility] METABOLIC 7 RENAL RENAL PANEL CARE PSC CARE PSC CALCIUM IONIZED BLOOD 57062 SHANICE [facility] COUNT 7 RENAL RENAL HEMOGLOBI CARE PSC CARE PSC N BASIC 17723 [facility] METABOLIC 7 HEALTHCAR HEALTHCAR PANEL E E CALCIUM [facility] TOTAL RADIOLOGI 53921 [place] [facility] C EXAM 6 FAMILY CHEST 2 HEALTH VIEWS CTR FRONTAL&L ATERAL RADEX 51416 [facility] RADHA RIBS UNI 6 INC W/POSTERO ANT CH MINIMUM 3 VIEWS RADEX HIP 25920 [facility] CUDA 6 INC UNILATERA L WITH PELVIS 2-3 VIEWS [facility] 66702 [facility] DISCHARGE 6 RENAL DAY CARE PSC MANAGEMEN T > 30 MIN SBSQ 79549 [facility] 6 RENAL MOH CARE/DAY CARE PSC 35 MINUTES SBSQ 41855 [facility] 6 RENAL MOH CARE/DAY CARE PSC 35 MINUTES SBSQ 30702 [facility] 6 RENAL MOH CARE/DAY CARE PSC 25 MINUTES SBSQ 94415 [facility] 6 RENAL MOH CARE/DAY CARE PSC 35 MINUTES SBSQ 89948 [facility] 6 RENAL CARE/DAY CARE PSC 35 MINUTES SBSQ 44442 [facility] 6 RENAL CARE/DAY CARE PSC 35 MINUTES RADIOLOGI 65415 [facility] [place] KOSTELIC C 6 RADIOLOGY EXAMINATI ON CHEST SINGLE VIEW FRONTAL RMVL VAZQUEZ 01094 [facility] [place] WESTERFIE CVC W/O 6 RADIOLOGY LD IV ALL SUBQ PORT/WATER/WASTEWATER PROJECT ENGINEER SBSQ 98341 [facility] 6 RENAL MOH CARE/DAY CARE PSC 35 MINUTES SBSQ 11678 [facility] 6 RENAL MOH CARE/DAY CARE PSC 35 MINUTES SBSQ 20999 [facility] 6 RENAL MOH CARE/DAY CARE PSC 35 MINUTES SBSQ 20018 [facility] 6 RENAL MOH CARE/DAY CARE PSC 35 MINUTES SBSQ 62797 [facility] 6 RENAL MOH CARE/DAY CARE PSC 35 MINUTES SBSQ 95310 [facility] 6 RENAL MOH CARE/DAY CARE PSC 35 MINUTES SBSQ 15968 [place] [address] RENAL MOH CARE/DAY CARE PSC 35 MINUTES SBSQ 56037 [facility] 6 RENAL MOH CARE/DAY CARE PSC 35 MINUTES SBSQ 54538 [place] [address] RENAL MOH CARE/DAY CARE PSC 35 MINUTES SBSQ 07894 [facility] 6 RENAL MOH CARE/DAY CARE PSC 35 MINUTES ECG 64152 [facility] ROUTINE 6 MAXWELL ECG CLINIC W/LEAST PSC 12 LDS I&R ONLY RADIOLOGI 50745 [facility] 6 RADIOLOGY LD IV ALL EXAMINATI ON CHEST SINGLE VIEW FRONTAL INITIAL 06490 [facility] 6 RENAL CARE/DAY CARE PSC 70 MINUTES SBSQ 86516 [place] [address] MEDICAL CARE/DAY SERV 25 FOUNDATIO MINUTES N GROUND A0425 [facility] 6 METRO METRO PER AMBULANCE AMBULANCE STATUTE MILE SBSQ 40978 [facility] 6 MEDICAL CARE/DAY SERV 25 FOUNDATIO MINUTES N RADIOLOGI 83874 [facility] 6 MEDICAL EXAMINATI SERV ON CHEST FOUNDATIO SINGLE N VIEW FRONTAL ECG 42720 [facility] ROUTINE 6 MEDICAL ACCOUNT RELATIONSHIP MANAGER ECG SERV W/LEAST FOUNDATIO 12 LDS N I&R ONLY SBSQ 15451 [facility] 6 MEDICAL SYBIL CARE/DAY SERV 25 FOUNDATIO MINUTES N BLOOD 79067 UNIVERS[facility] FABIÁN SMEAR 6 Y OF MAR[facility] [facility] [place] L INTERP HOSPI PHYS W/WRIT REPORT SBSQ 52769 [place] [address] MEDICAL SYBIL CARE/DAY SERV 25 FOUNDATIO MINUTES N SBSQ 31703 [facility] 6 MEDICAL SYBIL CARE/DAY SERV 25 FOUNDATIO MINUTES N SBSQ 67367 [facility] 6 MEDICAL CARE/DAY SERV 25 FOUNDATIO MINUTES N [place] VASC 11734 [place] JHON ACCESS 6 MEDICAL GARRETT SITS VSL SERV PATENCY FOUNDATIO NDL ENTRY N INSJ 85860 [place] JHON TUNNELED 6 MEDICAL GARRETT CVC W/O SERV SUBQ FOUNDATIO PORT/WATER/WASTEWATER PROJECT ENGINEER N AGE 6 YR/> FLUORO 90563 [facility] 6 MEDICAL GARRETT VENOUS SERV ACCESS FOUNDATIO DEV N PLACEMENT SBSQ 19502 [place] [address] MEDICAL CARE/DAY SERV 25 FOUNDATIO MINUTES N SBSQ 43314 [place] [address] MEDICAL CARE/DAY SERV 35 FOUNDATIO MINUTES N SBSQ 03546 [place] [address] MEDICAL AMR CARE/DAY SERV 35 FOUNDATIO MINUTES N SBSQ 56316 [place] [address] MEDICAL AMR CARE/DAY SERV 35 FOUNDATIO MINUTES N RADIOLOGI 50074 [place] ZAGUROVSK C 6 MEDICAL AYA MAR EXAMINATI SERV ON CHEST FOUNDATIO SINGLE N VIEW FRONTAL RADIOLOGI 89958 [place] DREW CON C 6 MEDICAL EXAMINATI SERV ON CHEST FOUNDATIO SINGLE N VIEW FRONTAL ECG 55759 [place] [facility] ROUTINE 6 MEDICAL NAN ECG SERV W/LEAST FOUNDATIO 12 LDS N I&R ONLY SBSQ 98094 [place] [address] MEDICAL CARE/DAY SERV 35 FOUNDATIO MINUTES N ECHO 89938 [facility] MEDICAL DARRIAN C R-T 2D SERV W/WO FOUNDATIO M-MODE N REC F-UP/LMTD CRITICAL 02953 [facility] BILL CARE 6 NURSE RAC ILL/INJUR PRACTITIO ED NER GR PATIENT INIT 30-74 MIN ECG 30082 [facility] R[facility] 6 MEDICAL ECG SERV W/LEAST FOUNDATIO 12 LDS N I&R ONLY RADIOLOGI 38785 [place] AMRITA C 6 MEDICAL JIGNESH EXAMINATI SERV ON CHEST FOUNDATIO SINGLE N VIEW FRONTAL RADIOLOGI 39386 [place] ZAGUROVSK C 6 MEDICAL AYA MAR EXAMINATI SERV ON CHEST FOUNDATIO SINGLE N VIEW FRONTAL INSJ 63163 [place] JH[facility] TUNNELED 6 MEDICAL GARRETT CVC W/O SERV SUBQ FOUNDATIO PORT/WATER/WASTEWATER PROJECT ENGINEER N AGE 6 YR/> ECG 07044 [facility] ROUTINE 6 MEDICAL ECG SERV W/LEAST FOUNDATIO 12 LDS N I&R ONLY FLUORO 24275 [place] JHON CENTRAL 6 MEDICAL GARRETT VENOUS SERV ACCESS FOUNDATIO DEV N PLACEMENT US VASC 40475 [place] JHON ACCESS 6 MEDICAL GARRETT SITS VSL SERV PATENCY FOUNDATIO NDL ENTRY N INSERTION [id number] [facility] INFUSION 6 HEALTHCAR HEALTHCAR DEVC E E [facility] HOSPITALS VENA CAVA PERQ PROTEIN 41344 [facility] MIGUEL A ELECTROPH 6 Y OF ORETIC [place] FRACTJ&QU HOSPI ANTJ SERUM PROTEIN 24125 [facility] ELECTROP 6 Y OF FXJ&JASON [place] OTH FLUS HOSPI CONCENTRA TI INITIAL 90846 [place] ALEJANDRA MARION INPATIENT 6 MEDICAL CONSULT SERV NEW/ESTAB FOUNDATIO PT 55 N MIN RADIOLOGI 39184 [place] GOLDSMITH C EXAM 6 MEDICAL TAO PELVIS SERV CHE COMPL FOUNDATIO MINIMUM 3 N VIEWS SBSQ 40387 [facility] 6 MEDICAL ANI CARE/DAY [place] [address] [place] MATEUS JAM RETROPERI 6 MEDICAL TONEAL SERV REAL TIME FOUNDATIO W/IMAGE N COMPLETE SBSQ 80734 [place] [address] MEDICAL ANI CARE/DAY SERV 25 FOUNDATIO MINUTES N RADIOLOGI 39789 [place] DREW CON C 6 MEDICAL EXAMINATI SERV ON CHEST FOUNDATIO SINGLE N VIEW FRONTAL CRITICAL 98840 [place] [facility] CARE 6 MEDICAL ANI ILL/INJUR SERV ED FOUNDATIO PATIENT N INIT 30-74 MIN RADIOLOGI 31726 [place] CROWE C 6 MEDICAL JIGNESH EXAMINATI SERV ON CHEST FOUNDATIO SINGLE N VIEW FRONTAL RADIOLOGI 75342 [place] SAE C 6 MEDICAL ZECHARIAH EXAMINATI SERV ON CHEST FOUNDATIO SINGLE N VIEW FRONTAL INSJ 90746 [place] SONIDO NON-TUNNE 6 MEDICAL LED SERV CENTRAL FOUNDATIO VENOUS N CATH AGE 6 YR/> INSERTION [id number] [facility] INFUSION 6 HEALTHCAR HEALTHCAR DEVC E [facility] VENA CAVA PERQ RADIOLOGI 82444 [place] DREW CON C 6 MEDICAL EXAMINATI SERV ON CHEST FOUNDATIO SINGLE N VIEW FRONTAL RADEX 14482 [place] ROBERT ABDOMEN 1 6 MEDICAL ART SERV ANTEROPOS FOUNDATIO TERIOR N VIEW RADIOLOGI 42264 [place] ZAGUROVSK C 6 MEDICAL AYA EXAMINATI SERV ON CHEST FOUNDATIO SINGLE N VIEW FRONTAL INSJ 71010 [place] SONIDO NON-TUNNE 6 MEDICAL LED SERV CENTRAL FOUNDATIO VENOUS N CATH AGE 5 [place]R/> [place] [address] [place] GUARDDAO ABDOMEN & 6 MEDICAL SCO PELVIS SERV W/CONTRAS FOUNDATIO T N MATERIAL SBSQ 89408 [facility] 6 MEDICAL LIZETH CARE/DAY SERV 25 FOUNDATIO MINUTES N ECG 46129 [place] ROUTINE 6 MEDICAL NAN ECG SERV W/LEAST FOUNDATIO 12 LDS N I&R ONLY INSERTION [id number] [facility] INFUSION 6 HEALTHCAR HEALTHCAR DEVC [facility] VENA CAVA PERQ RESPIRATO [id number] [facility] RY 6 HEALTHCAR HEALTHCAR VENTILATI E E ON 24-96 [facility] CONSECUTI VE HOURS INSERT [id number] [facility] ENDOTRACH 6 HEALTHCAR HEALTHCAR L AIRWAY E E TRACHEA [facility] NEHEMIAS/ART OPENING CT THORAX [address] [place] CROWE 6 MEDICAL JIGNESH W/CONTRAS SERV T FOUNDATIO MATERIAL N INITIAL 29692 [place] CAVATASSI INPATIENT 6 MEDICAL LIZETH CONSULT SERV NEW/ESTAB FOUNDATIO PT 80 N MIN ECHO [id number] [facility] INFANTE TTHRC R-T 6 MEDICAL DARRIAN 2D SERV W/WOM-MOD FOUNDATIO E COMPL N SPEC&COLR D RADIOLOGI 85971 [place] CHAPARRITA PRADIP C 6 MEDICAL EXAMINATI SERV ON CHEST FOUNDATIO SINGLE N VIEW FRONTAL RADIOLOGI 33315 [place] MARVIN CHAVEZ C 6 MEDICAL EXAMINATI SERV ON CHEST FOUNDATIO SINGLE N VIEW FRONTAL RADIOLOGI [address]348 [facility] C 6 EXAMINATI RADIOLOGY RADIOLOGY ON CHEST ASSOCIAT ASSOCIAT SINGLE VIEW FRONTAL CT THORAX [address]654 [facility] W/O 6 CONTRAST RADIOLOGY RADIOLOGY MATERIAL ASSOCIAT ASSOCIAT ECG 69516 [place] SWETA CHI ROUTINE 6 MEDICAL ECG SERV W/LEAST FOUNDATIO 12 LDS N I&[place] [address] [facility] ABDOMEN & 6 PELVIS RADIOLOGY RADIOLOGY W/O ASSOCIAT ASSOCIAT CONTRAST MATERIAL GROUND A0425 [facility] 6 CO AMB CO AMB PER SERVICE SERVICE [facility] [address] KM DALEY MAR DISCHARGE 6 NURSE DAY PRACTITIO MANAGEMEN NER GR T 30 MIN/< COMMODE E0163 [facility] CHAIR 6 MOBILE OR STATIONAR Y W/FIXED ARMS WALKER E0143 [facility] FOLDING 6 WHEELED ADJUSTABL E/FIXED HEIGHT SBSQ 09602 [facility] 6 MEDICAL CARE/DAY SERV 15 FOUNDATIO MINUTES N SBSQ 13774 [facility] 6 IA ER CARE/DAY PHYSICIAN 25 S ASSIST MINUTES SBSQ 99481 [facility] 6 IA CHR CARE/DAY PHYSICIAN 25 S ASSIST MINUTES RADIOLOGI 22076 [place] [facility] C 6 MEDICAL JULIO EXAMINATI SERV ON PELVIS FOUNDATIO 1/2 N VIEWS SBSQ 18948 [place] [facility] 6 MEDICAL OPAL CARE/DAY SERV 35 FOUNDATIO MINUTES N RADIOLOGI 97023 [place] [facility] C EXAM 6 MEDICAL JULIO PELVIS SERV COMPL FOUNDAT[place] MINIM[address] [place] [address] [place] [facility] ANGIOGRAP 6 MEDICAL HY CHEST SERV W/CONTRAS FOUNDATIO T/[place] [address] [place] [facility] CERVICAL 6 MEDICAL SPINE W/O SERV CONTRAST FOUNDATIO MATERIAL N AMB A0427 [facility] [address] [place] [address] ALS AMBULANCE AMBULANCE EMERGENCY SE SE TRANSPORT LEVEL 1 AMB A0431 AIR AIR SERVICE 6 METHODS METHODS CONVNTION [facility] AIR SRVC TRANSPORT [address] GROUND A0425 [facility] TRIMBLES MILEAGE [address] [place] [address] PER AMBULANCE AMBULANCE STATUTE SE SE MILE RADEX HIP 94998 [place] RODRIGUE LIRA 6 MEDICAL MAHSA UNILATERA SERV L WITH FOUNDATIO PELVIS N 2-3 VIEWS ECG 37895 [place] MALKA MIGUEL A ROUTINE 6 MEDICAL ECG SERV W/LEAST FOUNDATIO 12 LDS N I&[place] [address] [place] [facility] THORACIC 6 MEDICAL SPINE W/O SERV CONTRAST FOUNDATIO MATERIAL N CT PELVIS 66656 [place] TRUE [place] W/O 6 MEDICAL CONTRAST SERV MATERIAL FOUNDATIO N RADEX [address] [place] RODRIG[place] LIRA WRIST 6 MEDICAL MAHSA COMPLETE SERV MINIMUM [address] LUMBAR [address] [place] SPINE 6 MEDICAL W/[place] [address] [place] ABDOMEN & 6 MEDICAL PELVIS SERV W/[place] [address] [place]OD[place] LIR[place] HEAD/BRAI 6 MEDICAL MAHSA N W/O SERV CONTRAST FOUNDATIO MATERIAL N RADIOLOGI 03469 RADIOLOGY FARLEY GRA C EXAM 5 INC CHEST 2 VIEWS FRONTAL&L ATERAL MOB:WALK G8978 INTEGRITY UZIEL MOV ARND 4 JR JIGNESH FCN CLINE ORTHOPAED TX OUTSET ICS SPORT REP INTRVL SELF-CARE 84021 INTEGRITY UZIEL /HOME 4 JR JIGNESH MGMT ORTHOPAED TRAINING ICS SPORT EACH 15 MINUTES PHYSICAL 28384 INTEGRITY UZIEL THERAPY 4 JR JIGNESH EVALUATIO ORTHOPAED N ICS SPORT THERAPEUT 68905 INTEGRITY UZIEL IC PX 1/> 4 JR JIGNESH AREAS ORTHOPAED EACH 15 ICS SPORT MIN EXERCISES MOB: WALK G8979 INTEGRITY UZIEL MOV ARND 4 JR JIGNESH FCN CLINE ORTHOPAED GOAL REP ICS SPORT INTRVL&D/ C NON-INVAS 67684 [facility] SOUNDTECH NATY 4 INC - INC - PHYSIOLOG IC STUDY EXTREMITY 3 LEVLS TECHNETIU A9500 STRINGER [place] Gillis TC-99M 4 CO CO [facility] DX PER STUDY DOSE MYOCARDIA 45119 STRINGER [place] Grimes SPECT 4 CO CO [facility] STUDIES CV STRS 11808 [place] YANETH TST 4 TRACE GLE XERS&/OR FAMILY RX CONT HEALTH ECG W/O I&R CV STRS 37534 [place] STRINGER TST 4 CO CO XERS&/OR HOSPITAL HOSPITAL RX CONT ECG TRCG ONLY CV STRS 80012 [place] YANETH TST 4 TRACE GLE XERS&/OR FAMILY RX CONT HEALTH ECG I&R ONLY DUP-SCAN 34987 [employer] SOUNDTECH ARTL JADE 4 INC - INC - ABDL/PEL/ SCROT&/RP R ORGN COM MRI BRAIN 51675 [place] YANETH BRAIN 4 REGIONAL GLE STEM W/O MEDICAL W/CONTRAS BALWINDER T MATERIAL DUPLEX 37054 S[employer] SOUNDTECH SCAN 4 INC - INC - EXTRACRAN IAL ART COMPL BI STUDY ECHO 32959 [employer] [facility] TTHRC R-T 4 INC - INC - 2D W/WOM-MOD E COMPL SPEC&COLR D INJECTION J2250 [place] STRINGER 4 CO CO [facility] HCL [place] 1 [place] [address] [place] STRINGER SURG 4 CO CO PATHOLOGY [facility] GROSS&JIGNESH ROSCOPIC EXAM ANES 12752 [place] STRINGER LOWER 4 CO CO INTESTINE [facility] ENDOSCOPY DISTAL DUODENUM RINGERS J7120 [place] STRINGER LACTATE 4 CO CO INFUSION [facility] UP TO 1000 CC COLONOSCO 45885 [place] STRINGER PY 4 CO CO W/[facility] SINGLE/MU LTIPLE LIPOPROTE 47038 [place] YANETH IN DIR 4 TRACE GLE [facility] CHOLESTER OL 3D 38954 [place] YANETH RENDERING 4 REGIONAL GLE W/INTERP MEDICAL & BALWINDER POSTPROCE SS SUPERVISI ON MRI 36910 [place] YANETH SPINAL 4 REGIONAL GLE CANAL MEDICAL CERVICAL BALWINDER W/O CONTRAST MATRL LIPOPROTE 28875 [place] YANETH IN DIR 4 TRACE GLE [facility] CHOLESTER OL SPMTRY 31246 [place] YANETH W/VC 4 TRACE GLE EXPIRATOR FAMILY Y [facility] W/WO MXML VOL VNTJ Encounters Encounter Start End Date Code Location Performer Type Date HOSPITAL - 7 7 [facility] OUTPATIEN E T HOSPITALS OFFICE 98225 [facility]CI[facility]CKNER OUTPATIEN 7 7 FAMILY T VISIT HEALTH 15 CTR MINUTES HOSPITAL - 7 7 [facility] OUTPATIEN E T HOSPITALS OFFICE 22723 [facility] MICHAEL-Arabella OUTPATIEN 7 7 NURSE MAMADOU T VISIT PRACTITIO 25 NER GR MINUTES OFFICE 19625 NANCIE BUCKNER OUTPATIEN 6 6 FAMILY T VISIT HEALTH 15 CTR MINUTES EMERGENCY 60382 [facility] DEPT 6 6 PEDRO ZEFERINO VISIT EMERGENCY HIGH PHYS SEVERITY& THREAT FUNCJ EMERGENCY 32576 NINA MESA 6 6 MEDICAL DEPARTMEN SERV T VISIT FOUNDATIO HIGH/URGE N NT SEVERITY [facility]OSP[facility] - 6 [facility] INPATIENT E [facility]OSPITALS [facility] - 6 6 Y INPATIENT HOSPITAL EMERGENCY 21279 NINA WARNER 6 6 MEDICAL IAN DEPARTMEN SERV T VISIT FOUNDATIO HIGH/URGE N NT SEVERITY OFFICE 64544 NANCIE SANDOVAL OUTPATIEN 6 6 FAMILY T VISIT HEALTH 15 CTR MINUTES OFFICE 19277 [facility]CIE SANDOVAL OUTPATIEN 6 6 FAMILY T VISIT HEALTH 15 CTR MINUTES OFFICE 39996 [facility]ANCIE SANDOVAL OUTPATIEN 5 5 PRIMARY T VISIT CARE 15 CENTER MINUTES OFFICE 38358 [facility] OUTPATIEN 4 4 TRACE T VISIT FAMILY 25 [facility] [place] - 4 4 CO [facility] T OFFICE 07748 [facility] 4 4 TRACE T VISIT FAMILY 15 [facility] [place] - 4 4 CO [facility] T OFFICE 38953 [facility] OUTPATIEN 4 4 TRACE GLE T VISIT 5 FAMILY [facility]
--- OUTSIDE RECORDS SUMMARY | 2016-10-05 22:41 | External Medical Summary Rpt ---
Author Author NIKKO Helen, [employer] Organization [employer] Address Unknown Phone Unavailable Results XR LUMBAR SPINE AP AND LATERAL Observa Value Referen Units Interpr Notes Date tion ce etation Range EXAMINA No No No No Mar 13 TION: informa informa informa informa 2014 AP and tion in tion in tion in tion in 12:04 Lateral source source source source PM Views data data data data of the Lumbar Spine Dated 015.\\.b r\\\\.br\\ CLINICA L HISTORY : 59-year -old male. [facility]\\.br \\for Disabil ity.\\.b r\\\\.br\\ TECHNIQ UE: AP and lateral views obtaine d.\\.br\\ \\.br\\CO MPARISO N: No prior studies are availab le for compari son.\\.b r\\\\.br\\ FINDING S: There are five non-rib bearing lumbar type vertebr ae. The\\.br \\fronta l view shows mild scolios is, convex to the right. The sacroil iac\\.br \\joints are grossly intact. Cluster of multipl e sub 5-mm calcifi cations \\.br\\pr oject over medial aspect of the right upper quadran t. The lateral view\\.b r\\shows some loss of the lumbar lordosi s. Minimal anterol isthesi s of L3 and\\.br \\L4. Vertebr al body heights are normal. Mild disk height loss at L3-L4.\\ .br\\Mod erate disk height loss with vacuum phenome non at L5-S1. Mild\\.b r\\multi level osteoph ytosis .\\.br\\\\ .br\\IMP RESSION :\\.br\\1 . Mild scolios is, convex to the right.\\ .br\\2. Some loss of the lumbar lordosi s.\\.br\\ 3. Minimal anterol isthesi s of L3-L4.\\ .br\\4. Multile toan degener ative disk changes , most pronoun patricio at L5-S1,\\ .br\\mod erate.\\ .br\\Clu ster of multipl e calcifi cations project over the right upper quadran t\\.br\\m edially . Differe ntial diagnos is include s pancrea tic calcifi cations \\.br\\se condary to chronic pancrea titis, multipl e calcifi ed granulo mas, and\\.br \\cholel ithiasi s.\\.br\\ \\.br\\Ch guillermo Issa M.D. NM MPI SPECT CARDIO MULTIPLE Observa Value Referen Units Interpr Notes Date tion ce etation Range NM MPI No No No No Feb 03 SPECT informa informa informa informa 2013 CARDIO tion in tion in tion in tion in 6:12 AM MULTIPL source source source source E data data data data [facility]\\.br\\ [address]\\.br \\ [place] [address]\\. br\\\\.br \\ RADIOLO GY REPORT\\ .br\\ Name: SHAN SINGH\\. br\\ Patient #: [id number] Stay Type: O/P\\.br \\ Age: 58 Room:\\. br\\ : 957 Sex: M\\.br\\ Orderin g Phys: YANETH LUPE MR#: [id number]\\. br\\ Family Phys: YANETH LUPE Pt Phone: [phone] /[phone]\\. br\\ Admitti ng Phys: YANETH GLE\\.br \\ Unsig tequila Transcr iptions represe nt a prelimi nary report and do\\.br\\ not reflect a medical or legal documen t.\\.b r\\\\.br\\ \\.br\\&# & (' "&!#" %$%%$#" !\\.br\\ ! 0 )\\.br\\\\ .br\\ INDICAT IONS: Shortne ss of air, chest pain, dizzine ss, Hyperte nsion\\. br\\ MEDICAT IONS:\\. br\\ TEST PROTOCO L ISOTOPE DOSAGE\\ .br\\ _x_ Treadmi ll Stress ___ Persant ine Stress ___ T1 20 (Thalli um) Rest Dosage: 9.4 mCi\\.br \\ ___ Lexisca n Stress ___ Dobutam ine _x_ Te Cardiol ite Exercis e Dosage: 29.7 mCi\\.br \\ _x_ SPECT (Sestam ibi)\\.b r\\ RESTING RESULTS :\\.br\\ Rhythm: HR: BP:\\.br \\\\.br\\ EXERCIS E RESULTS :\\.br\\ Rhythm: HR: BP:\\.br \\\\.br\\ Exercis e Duratio n: Symptom s: None\\.b r\\\\.br\\ INTERPR ETATION : ___Norm al Study ___Abno rmal Study ___Bord deniz/ Equivoc al\\.br\\ \\.br\\ STRESS CARDIOL ITE PERFUSI ON STUDY: Exercis e portion dictate d separat harini. Review of the\\.br \\ Cardiol ite images reveals the followi ng:\\.br \\\\.br\\ 1. Good study.\\ .br\\ 2. No fixed defects .\\.br\\ 3. Ejectio n Fractio n 69%.\\.b r\\ 4. No decreas e in perfusi on on exercis e.\\.br\\ \\.br\\ ASSESSM ENT: Negativ e to the exercis e achieve d dictate d separat harini and I am really surpris ed he got\\.br \\ claudic ation on the treadmi ll.\\.br \\\\.br\\ Electro nically reviewe d and signed by:\\.br \\ BUBBA WOLFE M.D.\\.b r\\ Erika./ 06:54\\. br\\\\.br \\ Dictati on Date/Ti me: 02/04/14 7:31 Dictate d By: BUBBA WOLFE M.D. M.D.\\.b r\\ Transcr . Date/Ti me: 02/04/14 / 13:05 Transcr . Init.: klh\\.br \\\\.br\\ Copy for: YANETH Bell MD via link\\.b r\\ [facility] L\\.br\\ [address]\\.br \\ [place] [address]\\. br\\\\.br \\ RADIOLO GY REPORT\\ .br\\ Name: SHAN SINGH\\. br\\ Patient #: [id number] Stay Type: O/P\\.br \\ Age: 58 Room:\\. br\\ : 957 Sex: M\\.br\\ Orderin g Phys: YANETHSCOT ANDRADE MR#: [id number]\\. br\\ Family Phys: YANETH ANDRADE Pt Phone: [phone] /[phone]\\. br\\ Admitti ng Phys: YANETH GLE\\.br \\ Unsig tequila Transcr iptions represe nt a prelimi nary report and do\\.br\\ not reflect a medical or legal documen t.\\.b r\\\\.br\\ \\.br\\&# & (' "&!#" %$%%$#" !\\.br\\ ! 0 )\\.br\\\\ .br\\ NM KIDNEY W FLOW AND FUNCTION W PHARMACOLOGICAL INTERVENTION Observa Value Referen Units Interpr Notes Date tion ce etation Range TEXT Nuclear No No No No Nov 27 DIAGNOS informa informa informa informa 2011 IS medicin tion in tion in tion in tion in 12:05 BATTERY e Lasix source source source source PM data data data data stanley inman, 2HISTOR Y: Prior right nephrec simeon. Congeni quynh left UPJ obstruc tion withpri or stone removal uretero plasty. Patient states he has had recent removal of uretera l stent.9 .8 mCi of technet ium 99 M MAG3 injecte d intrave nously. Dynamic imagesw ere obtaine d. Scanswe re then obtaine d for one hour. 40 mg of Lasix was then adminis teredin traveno usly andcont inued scannin g obtaine d for one hour.CO MPARISO N: 06/06/19 12. Correla tion also made with several additio nalstud ies includi ngnephr ostogra m from 09/09/19 12.Becky sultana images demonst rate prompt perfusi on of the left kidney. Initial scans demonst ratedra dionucl nehemiah accumul ation within the pelvica lyceal system with various calyces appeari ng mildlyp rominen t. Radionu clide was also present within the left renal pelvis butthis appeare d lessdis tended than on 06/06/19 12. In additio n, radionu clide excreti on was seenwit hin the lefture ter.Fol lowing adminis tration of Lasix, there was prompt clearin g ofradio nuclide from pelvica lyceals ystem.I MPRESSI ON:Prom pt perfusi on and excreti on from the left kidney. No evidenc e of UPJobst ruction .Johnie ter
--- OUTSIDE RECORDS SUMMARY | 2016-10-05 22:41 | External Medical Summary Rpt ---
[...] CLINICA L HISTORY : 59-year -old male. [facility]\\.br \\for Disabil ity.\\.b r\\\\.br\\ [...] source source E data data data data [facility]\\.br\\ [address]\\.br \\ [place] [address]\\. br\\\\.br \\ RADIOLO GY REPORT\\ .br\\ Name: SHAN SINGH\\. br\\ Patient #: [id number] Stay Type: O/P\\.br \\ Age: 58 Room:\\. br\\ : 957 Sex: M\\.br\\ Orderin g Phys: YANETH LUPE MR#: [id number]\\. br\\ Family Phys: YANETH LUPE Pt Phone: [phone] /[phone]\\. br\\ Admitti ng Phys: YANETH GLE\\.br \\ [...] for: YANETH Bell MD via link\\.b r\\ [facility]\\.br\\ [address]\\.br \\ [place] [address]\\. br\\\\.br \\ RADIOLO GY REPORT\\ .br\\ Name: SHAN SINGH\\. br\\ Patient #: [id number] Stay Type: O/P\\.br \\ Age: 58 Room:\\. br\\ : 957 Sex: M\\.br\\ Orderin g Phys: YANETHSCOT ANDRADE MR#: [id number]\\. br\\ Family Phys: YANETH ANDRADE Pt Phone: [phone] /[phone]\\. br\\ Admitti ng Phys: YANETH GLE\\.br [...]
--- OUTSIDE RECORDS SUMMARY | 2016-10-05 22:41 | External Medical Summary Rpt ---
Demographics Preferred Language Bengali Marital Status Unknown Mandaeism Affiliation Unknown Race Unknown Ethnic Group Unknown Author Author , Organization [employer] Address Unknown Phone Unavailable Purpose Continuity of Care Document - through 2016 Immunization No patient found.
--- OUTSIDE RECORDS SUMMARY | 2016-10-05 22:41 | External Medical Summary Rpt ---
Demographics Preferred Language Tajik Marital Status Unknown Cheondoism Affiliation Unknown Race Unknown Ethnic Group Unknown Author Author , Organization [employer] Address Unknown Phone Unavailable Purpose Continuity of Care Document - through 2016 Immunization No patient found.
[2016-10-05 22:53] LABS: HEMOGLOBIN 9.2 g/dL (14.1-18.0); LYMPH # 1.6 K/mm3 (0.7-4.5); LYMPH % 26.2 % (10-50)
[2016-10-06 01:06] VITALS: BP 135/77
--- NOTE | 2016-10-06 08:23 | RADIOLOGY REPORT PS360 ---
CHEST(2 VIEWS-NOT PORTABLE) COMPARISON: None HISTORY: S pain TECHNIQUE: PA and lateral chest FINDINGS: The lung boswell are well expanded. There is prominent pleural-parenchymal scarring at the left base with blunting of left costo phrenic angle. Without old films for comparison and cannot deftly exclude a small left pleural effusion versus chronic scarring. Cardiac size is borderline and there are sternal wire sutures noted and surgical clips noted possibly from previous bypass procedure. The lung boswell appear clear of active infiltrate and is no evidence of failure. IMPRESSION: Prominent postsurgical changes left lower hemithorax, no definite acute chest pathology noted
== END 2016-10-06 01:06 | disposition home or self-care (01) ==
LOC: ER 22:07
PROVIDERS: Emergency Medicine
DX: R07.9 Chest pain, unspecified (principal); D64.9 Anemia, unspecified; N28.9 Disorder of kidney and ureter, unspecified; I10 Essential (primary) hypertension; J44.9 Chronic obstructive pulmonary disease, unspecified; Z72.0 Tobacco use